=== PATIENT | male | born 1945 | race Caucasian/White ===

== ENCOUNTER 2017-04-25 11:43 | Observation (INO) ==
[2017-04-25 12:23] LABS: Basophils % 0.3 %; Eosinophils # 0.1 K/mcL (0.0-0.6); Hematocrit 32.5 % (37.5-50.1); Hemoglobin 10.9 g/dL (12.9-16.9); Immature Granulocytes % 0.6 % (0-4); Lymphocytes # 1.3 K/mcL (0.6-4.6); Lymphocytes % 14.3 %; Mean Corpuscular HGB Conc 33.5 g/dL (31.6-35.5); Mean Corpuscular Hemoglobin 28.6 pg (28.0-33.3); Mean Corpuscular Volume 85.3 fL (83.0-100.0); Mean Platelet Volume 9.9 fL (9.4-12.4); Monocytes # 0.5 K/mcL (0.0-1.3); Monocytes % 5.6 %; Neutrophils # 6.8 K/mcL (1.6-8.9); Platelet Count 210 K/mcL (140-400); Red Blood Count 3.81 M/mcL (4.19-5.50); Red Cell Distribution Width 12.7 % (11.5-14.5); Segmented Neutrophils % 78.2 %
--- NOTE | 2017-04-25 12:35 | Emergency Department Note ---
Disposition Clinical Impression: Bipolar disorder Qualifiers: Active/Remission status: currently active Current bipolar episode type: mixed Current episode severity: moderate Qualified Code(s): F31.62 - Bipolar disorder , current episode mixed, moderate Disposition: Still a Patient Condition: Fair Referrals: Lex Millan DO [Non-Partnered Physician] - Forms: ED Satisfaction Letter Time of Disposition: 22:31 Psych HPI - General Chief Complaint: ED Psychiatric Symptoms Stated Complaint: anxiety Time Seen by Provider: 04/25/17 11:47 Nursing Notes Reviewed: Yes Vital Signs Reviewed: Yes - History of Present Illness HPI Narrative: Mr. Hoffman, 71-year-old male, presents from home via EMS. He called the squad stating the hospital because "something is wrong with me". Patient's sister, who is his POA, call the patient's primary care physician, Dr. Lex Millan, who called ahead to the emergency department. Patient has a history of nervous breakdowns which involves violence and prolonged hospital stays before returning home. Over the past several weeks, he has had behavioral changes with visual hallucinations, vocabulary change described as large appropriately, and increased irritability. Each of these are atypical per patient's sister and primary care physician. PMH: End-stage renal disease not yet on dialysis; fistula placed in forearm with dialysis pending. - Related Data Home Medications Medication Instructions Recorded Confirmed Aspirin 81 mg PO QAM 02/19/15 04/25/17 Atenolol [Tenormin] 50 mg PO QID 02/19/15 04/25/17 Haloperidol [Haldol] 5 mg PO HS 02/19/15 04/25/17 Losartan/Hydrochlorothiazide 1 each PO DAILY 02/19/15 04/25/17 [Hyzaar 100-25 Tablet] Simvastatin [Zocor] 40 mg PO HS 02/19/15 04/25/17 Trihexyphenidyl [Artane] 5 mg PO HS 02/19/15 04/25/17 Amlodipine [Norvasc] 10 mg PO DAILY 02/22/15 04/25/17 Doxazosin Mesylate [Cardura Xl] 8 mg PO DAILY 04/25/17 04/25/17 Insulin Glargine,Hum.rec.anlog 35 unit SQ HS 04/25/17 04/25/17 [Lantus Solostar] Potassium Chloride [Klor-Con 10] 10 meq PO QID 04/25/17 04/25/17 SitaGLIPtin [Januvia] 25 mg PO DAILY 04/25/17 04/25/17 Previous Rx's Medication Instructions Recorded cloNIDine HCl [CloNIDine HCl] 0.2 mg PO TID #180 tablet 02/21/15 BuPROPion [Wellbutrin] 100 mg PO DAILY 30 Days tablet 02/23/15 Furosemide [Lasix] 40 mg PO DAILY #2 tab 09/29/16 Allergies Allergy/AdvReac Type Severity Reaction Status Date / Time Penicillins [PCN] Allergy Anaphylaxis Verified 04/25/17 18:58 Thiopental [From Pentothal] Allergy Anaphylaxis Verified 04/25/17 18:58 furosemide AdvReac See Verified 04/25/17 18:58 Comments lisinopril AdvReac Cough Verified 04/25/17 18:58 Metolazone AdvReac See Verified 04/25/17 18:58 Comments Past Medical History - Past Medical History Medical history: Reports: arthritis, asthma, CHF, diabetes, hyperlipidemia, hypertension, renal disease, other Surgical history: Reports: no surgical history, other Psychiatric history: Reports: schizophrenia, previous psychiatric hospitalization - Social History Smoking Status: Former smoker Smokeless Tobacco Status: No Alcohol use: Reports: none Drug use: Reports: none Physical Exam Vital Signs Reviewed General: Patient is alert, oriented, and in no acute distress. HEENT: No facial asymmetry. Head is normocephalic and atraumatic. PERRLA. Oral mucosa moist. Trachea midline. Cardiovascular: Heart regular rate and rhythm without clicks, rubs, gallops, or murmurs. No JVD. PMI nondisplaced. Respiratory: Symmetric chest rise with good respiratory effort. Bilateral breath sounds are clear without wheezing, crackles, or rhonchi. Abdomen: Bowel sounds present normoactive x-4 quadrants. Abdomen is soft, nondistended, and nontender. Musculoskeletal: Spontaneously moving all extremities. Neuro: Dystonia with mild akithesia. GCS 15. Psych: Patient's affect is appropriate for situation. - General General appearance: alert, in no apparent distress Course Course Narrative: Patient's sister called; He has not taking his haloperidol for last several days. Will provide home dose in the emergency department. Patient is mild hyperkalemia that is not symptomatic on EKG. We will by mouth replaced. Vital Signs Temperature 98.3 F 04/25/17 11:43 Pulse Rate 72 04/25/17 11:43 Respiratory Rate 20 04/25/17 11:43 Blood Pressure 180/74 04/25/17 11:43 O2 Sat by Pulse Oximetry 100 04/25/17 11:43 Temperature 98.3 F 04/25/17 11:43 Pulse Rate 72 04/25/17 11:43 Respiratory Rate 20 04/25/17 11:43 Blood Pressure 180/74 04/25/17 11:43 O2 Sat by Pulse Oximetry 100 04/25/17 11:43 Oxygen Delivery Oxygen Delivery Room Air Psych - Lab Data Result diagrams: 04/25/17 12:17 04/25/17 12:17 Lab Results 04/25/17 04/25/17 04/25/17 Range/Units 12:17 12:17 14:50 WBC 8.7 (4.3-11.1) K/mcL RBC 3.81 L (4.19-5.50) M/mcL Hgb 10.9 L (12.9-16.9) g/dL Hct 32.5 L (37.5-50.1) % MCV 85.3 (83.0-100.0) fL MCH 28.6 (28.0-33.3) pg MCHC 33.5 (31.6-35.5) g/dL RDW 12.7 (11.5-14.5) % Plt Count 210 (140-400) K/mcL MPV 9.9 (9.4-12.4) fL Immature Gran % 0.6 (0-4) % Seg Neutrophils % 78.2 % Lymphocytes % 14.3 % Monocytes % 5.6 % Eosinophils % 1.0 % Basophils % 0.3 % Neutrophils # 6.8 (1.6-8.9) K/mcL Lymphocytes # 1.3 (0.6-4.6) K/mcL Monocytes # 0.5 (0.0-1.3) K/mcL Eosinophils # 0.1 (0.0-0.6) K/mcL Basophils # 0.0 (0.0-0.2) K/mcL Sodium 136 (136-145) mEq/L Potassium 3.2 L (3.5-4.5) mEq/L Chloride 98 (98-109) mEq/L Carbon Dioxide 27 (19-29) mEq/L BUN 34 H (8-26) mg/dL Creatinine 2.94 H (0.72-1.25) mg/dL Est GFR ( Amer) 26 L (> 60) Est GFR (Non-Af Amer) 21 L (> 60) BUN/Creatinine Ratio 12 (6-26) Glucose 232 H (70-99) mg/dL Calculated Osmolality 297 (280-300) Calcium 8.9 (8.6-10.8) mg/dL TSH 1.628 (0.350-4.840) mcIU/mL Urine Color Yellow (Yellow) Urine Clarity Clear (Clear) Urine pH 7.0 (5.0-8.0) pH Units Ur Specific [place] 1.013 (1.010-1.025) Urine Protein 30 H (Neg-Trace) mg/dL Urine Glucose (UA) 100 H (Normal) mg/dL Urine Ketones Negative (Negative) mg/dL Urine Blood Negative (Negative) Urine Nitrite Negative (Negative) Urine Bilirubin Negative (Negative) Urine Urobilinogen Normal (Normal) mg/dL Ur Leukocyte Esterase Negative (Negative) Urine Microscopic RBC 0-3 (0-3) per hpf Urine Microscopic WBC 0-3 (0-3) per hpf Ur Squamous Epith Cells None Seen (None-Few) per lpf Urine Bacteria None Seen (None-Few) per hpf Hyaline Casts None Seen (None-Few) per lpf Salicylates < 5.0 L (15-30) mg/dL Urine Opiates Screen (Ivvybm=412) ng/mL Acetaminophen < 1.0 L (10-30) mcg/mL Ur Barbiturates Screen (Jrcusd=426) ng/mL Ur Phencyclidine Scrn (Cutoff=25) ng/mL Ur Amphetamines Screen (Qygslt=4553) ng/mL U Benzodiazepines Scrn (Mpnsxu=369) ng/mL Urine Cocaine Screen (Cutoff= 300) ng/mL U Marijuana (THC) Screen (Cutoff = 50) ng/mL Ethyl Alcohol < 10 (0-10) mg/dL 04/25/17 Range/Units 14:50 WBC (4.3-11.1) K/mcL RBC (4.19-5.50) M/mcL Hgb (12.9-16.9) g/dL Hct (37.5-50.1) % MCV (83.0-100.0) fL MCH (28.0-33.3) pg MCHC (31.6-35.5) g/dL RDW (11.5-14.5) % Plt Count (140-400) K/mcL MPV (9.4-12.4) fL Immature Gran % (0-4) % Seg Neutrophils % % Lymphocytes % % Monocytes % % Eosinophils % % Basophils % % Neutrophils # (1.6-8.9) K/mcL Lymphocytes # (0.6-4.6) K/mcL Monocytes # (0.0-1.3) K/mcL Eosinophils # (0.0-0.6) K/mcL Basophils # (0.0-0.2) K/mcL Sodium (136-145) mEq/L Potassium (3.5-4.5) mEq/L Chloride (98-109) mEq/L Carbon Dioxide (19-29) mEq/L BUN (8-26) mg/dL Creatinine (0.72-1.25) mg/dL Est GFR ( Amer) (> 60) Est GFR (Non-Af Amer) (> 60) BUN/Creatinine Ratio (6-26) Glucose (70-99) mg/dL Calculated Osmolality (280-300) Calcium (8.6-10.8) mg/dL TSH (0.350-4.840) mcIU/mL Urine Color (Yellow) Urine Clarity (Clear) Urine pH (5.0-8.0) pH Units Ur Specific [place] (1.010-1.025) Urine Protein (Neg-Trace) mg/dL Urine Glucose (UA) (Normal) mg/dL Urine Ketones (Negative) mg/dL Urine Blood (Negative) Urine Nitrite (Negative) Urine Bilirubin (Negative) Urine Urobilinogen (Normal) mg/dL Ur Leukocyte Esterase (Negative) Urine Microscopic RBC (0-3) per hpf Urine Microscopic WBC (0-3) per hpf Ur Squamous Epith Cells (None-Few) per lpf Urine Bacteria (None-Few) per hpf Hyaline Casts (None-Few) per lpf Salicylates (15-30) mg/dL Urine Opiates Screen Negative (Nxwocz=362) ng/mL Acetaminophen (10-30) mcg/mL Ur Barbiturates Screen Negative (Dtdhdo=805) ng/mL Ur Phencyclidine Scrn Negative (Cutoff=25) ng/mL Ur Amphetamines Screen Negative (Mzobdo=5023) ng/mL U Benzodiazepines Scrn Negative (Gtxmxt=742) ng/mL Urine Cocaine Screen Negative (Cutoff= 300) ng/mL U Marijuana (THC) Screen Negative (Cutoff = 50) ng/mL Ethyl Alcohol (0-10) mg/dL - EKG Data EKG attestation: Yes I reviewed and interpreted this EKG. EKG results narrative: EKG dated 04/25/17 at 12:28 interpreted as sinus rhythm with rate of 64. First- degree AV block with NE 224. QRS 116, QT/QTC 417/427. IVCD. Borderline left axis. T-wave inversion in leads 3 and V1 present are compared to EKG. Otherwise nonspecific ST-T changes. Compared to previous EKG dated 09/28/2016 showing no acute ischemic changes or comparison. Psychiatric Medical Clearance - Medical Clearance Checklist Does the patient have a NEW psychiatric condition?: No Any abnormalities indicating possible medical illness?: No Any history of medical issues?: No Medical History: Syncope, near (Acute) Weakness (Acute) Chronic renal failure (Chronic) Acute renal insufficiency (Acute) DM type 2 (diabetes mellitus, type 2) (Chronic) Hyperlipidemia (Chronic) Anemia (Chronic) Anxiety (Acute) Schizophrenia, disorganized, chronic (Chronic) Depression (Acute) Bipolar disorder (Acute) Chronic renal disease (Inactive) Hypertension (Inactive) Hypoglycemia (Inactive) Lower extremity edema (Inactive) No Social History Section defined Any abnormal vital signs prior to transfer?: No Current Vitals: Last Vital Signs Temp 98.3 F 04/25/17 11:43 Pulse 72 04/25/17 11:43 Resp 20 04/25/17 11:43 BP 180/74 04/25/17 11:43 Pulse Ox 100 04/25/17 11:43 Is the patient intoxicated or cognitively impaired?: Yes (Hx MR. No intoxication.) Psychiatric Lab Panel: Drug Levels and Toxicity 04/25/17 04/25/17 12:17 14:50 Urine Opiates Screen Negative Acetaminophen < 1.0 L Ur Barbiturates Screen Negative Ur Phencyclidine Scrn Negative Ur Amphetamines Screen Negative U Benzodiazepines Scrn Negative Urine Cocaine Screen Negative U Marijuana (THC) Screen Negative Ethyl Alcohol < 10 Any abnormalities on the physical exam?: No Any abnormal labs?: No Abnormal Labs: Abnormal lab results RBC 3.81 M/mcL (4.19-5.50) L 04/25/17 12:17 Hgb 10.9 g/dL (12.9-16.9) L 04/25/17 12:17 Hct 32.5 % (37.5-50.1) L 04/25/17 12:17 Potassium 3.2 mEq/L (3.5-4.5) L 04/25/17 12:17 BUN 34 mg/dL (8-26) H 04/25/17 12:17 Creatinine 2.94 mg/dL (0.72-1.25) H 04/25/17 12:17 Est GFR ( Amer) 26 (> 60) L 04/25/17 12:17 Est GFR (Non-Af Amer) 21 (> 60) L 04/25/17 12:17 Glucose 232 mg/dL (70-99) H 04/25/17 12:17 Urine Protein 30 mg/dL (Neg-Trace) H 04/25/17 14:50 Urine Glucose (UA) 100 mg/dL (Normal) H 04/25/17 14:50 Salicylates < 5.0 mg/dL (15-30) L 04/25/17 12:17 Acetaminophen < 1.0 mcg/mL (10-30) L 04/25/17 12:17 Does the patient require durable medical equiptment?: No Is the patient ambulatory?: Yes Is the patient a fall risk?: No Has the patient been medically cleared?: No Any acute medical condition require Tx prior to transfer?: No Attestation Statement - Attestation Attestation: I examined this patient and my medical decision-making was reviewed with the Resident Physician. I agree with the documented findings, disposition and treatment plan as described except to the extent set forth below. 71-year-old male with history of schizophrenia presents to the ED because of worsening agitation and delusions. He has a history of decompensated schizophrenia. He has not been taking his medications for the past several days. He was sent to the emergency department by his sister by the recommendation of the primary care physician due to increasing agitation, delusions and hallucinations. He should denies any current suicidal ideations. He states he sometimes wants to hurt other people but would not be more specific. He reports maintaining good appetite and diet. No vomiting. No fevers. No recent trauma. Pleasant elderly male in no apparent distress. He is cooperative. Nasal membranes are dry. Neck is supple. Chest clear to auscultation bilaterally. Abdomen soft nondistended nontender. Extremities warm and dry. Asymmetry of his legs with left been lower than the right. Metabolic workup is unremarkable except for hypokalemia. He is given supplemental oral potassium oral fluids. He was cooperative and interactive throughout his time in the ED and will be admitted for reinstitution of his medications and further evaluation.
[2017-04-25 12:38] LABS: Acetaminophen < 1.0 mcg/mL (10-30); BUN/Creatinine Ratio 12 (6-26); Blood Urea Nitrogen 34 mg/dL (8-26); Calcium 8.9 mg/dL (8.6-10.8); Carbon Dioxide 27 mEq/L (19-29); Chloride 98 mEq/L (98-109); Ethanol < 10 mg/dL (0-10); Glucose 232 mg/dL (70-99); Osmolality,Calculated 297 (280-300); Potassium 3.2 mEq/L (3.5-4.5); Salicylate < 5.0 mg/dL (15-30); Sodium 136 mEq/L (136-145); eGFR For African Americans 26 (> 60); eGFR For Non-African Americans 21 (> 60)
[2017-04-25 12:58] LABS: Thyroid Stimulating Hormone 1.628 mcIU/mL (0.350-4.840)
[2017-04-25] MEDS ORDERED: Haloperidol Oral Conc 10 MG/5 ML UDC PO ONE (13:15)
[2017-04-25 14:55] LABS: Bilirubin,Urine Negative (Negative); Blood,Urine Negative (Negative); Clarity,Urine Clear (Clear); Color,Urine Yellow (Yellow); Glucose,Urine (UA) 100 mg/dL (Normal); Ketones,Urine Negative (Negative); Leukocyte Esterase,Urine Negative (Negative); Nitrite,Urine Negative (Negative); Protein,Urine 30 mg/dL (Neg-Trace); Specific Gravity,Urine 1.013 (1.010-1.025); Urobilinogen,Urine Normal (Normal)
[2017-04-25 14:57] LABS: Bacteria,Urine None Seen per hpf (None-Few); Hyaline Casts,Urine None Seen per lpf (None-Few); RBC,Urine 0-3 per hpf (0-3); Squamous Epithelial Cell,Urine None Seen per lpf (None-Few); WBC,Urine 0-3 per hpf (0-3)
[2017-04-25 15:05] LABS: Amphetamine Screen,Urine Negative ng/mL (Cutoff=1000); Barbiturate Screen,Urine Negative ng/mL (Cutoff=200); Benzodiazepines Screen,Urine Negative ng/mL (Cutoff=200); Cannabinoid Screen,Urine Negative ng/mL (Cutoff = 50); Cocaine Screen,Urine Negative ng/mL (Cutoff= 300); Opiate Screen,Urine Negative ng/mL (Cutoff=300); Phencyclidine Screen,Urine Negative ng/mL (Cutoff=25)
--- NOTE | 2017-04-26 06:08 | Electrocardiograph Report ---
[facility] Date: 2017-04-25 Pat Name: Heber Gomez Department: 103 Room: Gender: M Mid Wife: : 1945 Requested By: Jose Sena Order Number: [id number] Reading MD: Tobias Mari DO Measurements Intervals [place] Rate: 64 P: 60 SD: 224 QRS: 1 QRSD: 116 T: -16 QT: 417 QTc: 427 Interpretive Statements SINUS RHYTHM WITH FIRST DEGREE AV BLOCK MODERATE INTRAVENTRICULAR CONDUCTION DELAY [110+ ms QRS DURATION] NONSPECIFIC T-WAVE ABNORMALITY Electronically Signed On 04-26-2017 6:06:26 EST by Tobias Mari DO
--- NOTE | 2017-04-26 07:37 | Emergency Department Note ---
Disposition Clinical Impression: Bipolar disorder Qualifiers: Active/Remission status: currently active Current bipolar episode type: mixed Current episode severity: moderate Qualified Code(s): F31.62 - Bipolar disorder , current episode mixed, moderate Chronic renal failure Qualifiers: Chronic kidney disease stage: stage 3 (moderate) Qualified Code(s): N18.3 - Chronic kidney disease, stage 3 (moderate) Disposition: Admitted As Inpatient Condition: Fair Referrals: Lex Millan DO [Non-Partnered Physician] - Forms: ED Satisfaction Letter General Adult HPI - General Chief complaint: ED Psychiatric Symptoms Stated complaint: anxiety Time Seen by Provider: 04/25/17 11:47 Nursing Notes Reviewed: Yes Vital Signs Reviewed: Yes - History of Present Illness Pain Scale: 0 - Related Data Home Medications Medication Instructions Recorded Confirmed Aspirin 81 mg PO QAM 02/19/15 04/25/17 Atenolol [Tenormin] 50 mg PO QID 02/19/15 04/25/17 Haloperidol [Haldol] 5 mg PO HS 02/19/15 04/25/17 Losartan/Hydrochlorothiazide 1 each PO DAILY 02/19/15 04/25/17 [Hyzaar 100-25 Tablet] Simvastatin [Zocor] 40 mg PO HS 02/19/15 04/25/17 Trihexyphenidyl [Artane] 5 mg PO HS 02/19/15 04/25/17 Amlodipine [Norvasc] 10 mg PO DAILY 02/22/15 04/25/17 Doxazosin Mesylate [Cardura Xl] 8 mg PO DAILY 04/25/17 04/25/17 Insulin Glargine,Hum.rec.anlog 35 unit SQ HS 04/25/17 04/25/17 [Lantus Solostar] Potassium Chloride [Klor-Con 10] 10 meq PO QID 04/25/17 04/25/17 SitaGLIPtin [Januvia] 25 mg PO DAILY 04/25/17 04/25/17 Previous Rx's Medication Instructions Recorded cloNIDine HCl [CloNIDine HCl] 0.2 mg PO TID #180 tablet 02/21/15 BuPROPion [Wellbutrin] 100 mg PO DAILY 30 Days tablet 02/23/15 Furosemide [Lasix] 40 mg PO DAILY #2 tab 09/29/16 Allergies Allergy/AdvReac Type Severity Reaction Status Date / Time Penicillins [PCN] Allergy Anaphylaxis Verified 04/25/17 18:58 Thiopental [From Pentothal] Allergy Anaphylaxis Verified 04/25/17 18:58 furosemide AdvReac See Verified 04/25/17 18:58 Comments lisinopril AdvReac Cough Verified 04/25/17 18:58 Metolazone AdvReac See Verified 04/25/17 18:58 Comments Past Medical History - Past Medical History Medical history: Reports: arthritis, asthma, CHF, diabetes, hyperlipidemia, hypertension, renal disease, other Surgical history: Reports: no surgical history, other Psychiatric history: Reports: schizophrenia, previous psychiatric hospitalization - Social History Smoking Status: Former smoker Smokeless Tobacco Status: No Alcohol use: Reports: none Drug use: Reports: none Physical Exam - General General appearance: alert, in no apparent distress Course Vital Signs Temperature 98.3 F 04/25/17 11:43 Pulse Rate 72 04/25/17 11:43 Respiratory Rate 20 04/25/17 11:43 Blood Pressure 180/74 04/25/17 11:43 O2 Sat by Pulse Oximetry 100 04/25/17 11:43 Temperature 98.3 F 04/25/17 11:43 Pulse Rate 97 04/26/17 04:38 Respiratory Rate 18 04/26/17 04:38 Blood Pressure 159/87 04/26/17 04:38 O2 Sat by Pulse Oximetry 97 04/26/17 04:38 Oxygen Delivery Oxygen Delivery Room Air Medical Decision Making - MDM Narrative Medical decision making narrative: I examined this patient and my medical decision-making was reviewed with the Resident Physician. I agree with the documented findings, disposition and treatment plan as described except to the extent set forth below. Patient was a sign out from the evening ER physician, Dr. Justin Patrick. He had been initially seen previously by Dr. Abran Faulkner. And was awaiting evaluation by [facility]. [facility] has evaluated him and they are trying to place him. Patient states he sleeping comfortably does not want anything needed this time and he is cooperative. On if he needs anything to let us know. Impression is anxiety 1100 hrs.: Spoke with [facility], they spoke to various [facility] and they will refuse to take him into his been admitted for 24 hours to rule out medical causes. I think this is appropriate. We will speak with hospitalist. Impression is #1 anxiety, altered mental status, and agitation, chronic renal insufficiency. Patient is up-to-date in agreement with this plan. 1110 hrs.: Spoke with hospitalist, she has graciously agreed to admit the patient to the hospital. Patient's up-to-date in agreement with plan. Consult to psychiatry for the floor. This documentation is done with the assistance of [employer] dictation software. Though efforts have been made to ensure accuracy, there may be inaccuracies in farm implement engine mechanic or spelling or other typographical errors. - Lab Data Result diagrams: 04/25/17 12:17 04/25/17 12:17 Lab Results 04/25/17 04/25/17 04/25/17 Range/Units 12:17 12: 14:50 WBC 8.7 (4.3-11.1) K/mcL RBC 3.81 L (4.19-5.50) M/mcL Hgb 10.9 L (12.9-16.9) g/dL Hct 32.5 L (37.5-50.1) % MCV 85.3 (83.0-100.0) fL MCH 28.6 (28.0-33.3) pg MCHC 33.5 (31.6-35.5) g/dL RDW 12.7 (11.5-14.5) % Plt Count 210 (140-400) K/mcL MPV 9.9 (9.4-12.4) fL Immature Gran % 0.6 (0-4) % Seg Neutrophils % 78.2 % Lymphocytes % 14.3 % Monocytes % 5.6 % Eosinophils % 1.0 % Basophils % 0.3 % Neutrophils # 6.8 (1.6-8.9) K/mcL Lymphocytes # 1.3 (0.6-4.6) K/mcL Monocytes # 0.5 (0.0-1.3) K/mcL Eosinophils # 0.1 (0.0-0.6) K/mcL Basophils # 0.0 (0.0-0.2) K/mcL Sodium 136 (136-145) mEq/L Potassium 3.2 L (3.5-4.5) mEq/L Chloride 98 (98-109) mEq/L Carbon Dioxide 27 (19-29) mEq/L BUN 34 H (8-26) mg/dL Creatinine 2.94 H (0.72-1.25) mg/dL Est GFR ( Amer) 26 L (> 60) Est GFR (Non-Af Amer) 21 L (> 60) BUN/Creatinine Ratio 12 (6-26) Glucose 232 H (70-99) mg/dL POC Glucose (58-89) Calculated Osmolality 297 (280-300) Calcium 8.9 (8.6-10.8) mg/dL TSH 1.628 (0.350-4.840) mcIU/mL Urine Color Yellow (Yellow) Urine Clarity Clear (Clear) Urine pH 7.0 (5.0-8.0) pH Units Ur Specific [place] 1.013 (1.010-1.025) Urine Protein 30 H (Neg-Trace) mg/dL Urine Glucose (UA) 100 H (Normal) mg/dL Urine Ketones Negative (Negative) mg/dL Urine Blood Negative (Negative) Urine Nitrite Negative (Negative) Urine Bilirubin Negative (Negative) Urine Urobilinogen Normal (Normal) mg/dL Ur Leukocyte Esterase Negative (Negative) Urine Microscopic RBC 0-3 (0-3) per hpf Urine Microscopic WBC 0-3 (0-3) per hpf Ur Squamous Epith Cells None Seen (None-Few) per lpf Urine Bacteria None Seen (None-Few) per hpf Hyaline Casts None Seen (None-Few) per lpf Salicylates < 5.0 L (15-30) mg/dL Urine Opiates Screen (Kkvuxv=234) ng/mL Acetaminophen < 1.0 L (10-30) mcg/mL Ur Barbiturates Screen (Kddwnw=007) ng/mL Ur Phencyclidine Scrn (Cutoff=25) ng/mL Ur Amphetamines Screen (Cjahii=8052) ng/mL U Benzodiazepines Scrn (Xdjkrz=498) ng/mL Urine Cocaine Screen (Cutoff= 300) ng/mL U Marijuana (THC) Screen (Cutoff = 50) ng/mL Ethyl Alcohol < 10 (0-10) mg/dL 04/25/17 04/26/17 Range/Units 14:50 04:28 WBC (4.3-11.1) K/mcL RBC (4.19-5.50) M/mcL Hgb (12.9-16.9) g/dL Hct (37.5-50.1) % MCV (83.0-100.0) fL MCH (28.0-33.3) pg MCHC (31.6-35.5) g/dL RDW (11.5-14.5) % Plt Count (140-400) K/mcL MPV (9.4-12.4) fL Immature Gran % (0-4) % Seg Neutrophils % % Lymphocytes % % Monocytes % % Eosinophils % % Basophils % % Neutrophils # (1.6-8.9) K/mcL Lymphocytes # (0.6-4.6) K/mcL Monocytes # (0.0-1.3) K/mcL Eosinophils # (0.0-0.6) K/mcL Basophils # (0.0-0.2) K/mcL Sodium (136-145) mEq/L Potassium (3.5-4.5) mEq/L Chloride (98-109) mEq/L Carbon Dioxide (19-29) mEq/L BUN (8-26) mg/dL Creatinine (0.72-1.25) mg/dL Est GFR ( Amer) (> 60) Est GFR (Non-Af Amer) (> 60) BUN/Creatinine Ratio (6-26) Glucose (70-99) mg/dL POC Glucose 174 H (58-89) Calculated Osmolality (280-300) Calcium (8.6-10.8) mg/dL TSH (0.350-4.840) mcIU/mL Urine Color (Yellow) Urine Clarity (Clear) Urine pH (5.0-8.0) pH Units Ur Specific [place] (1.010-1.025) Urine Protein (Neg-Trace) mg/dL Urine Glucose (UA) (Normal) mg/dL Urine Ketones (Negative) mg/dL Urine Blood (Negative) Urine Nitrite (Negative) Urine Bilirubin (Negative) Urine Urobilinogen (Normal) mg/dL Ur Leukocyte Esterase (Negative) Urine Microscopic RBC (0-3) per hpf Urine Microscopic WBC (0-3) per hpf Ur Squamous Epith Cells (None-Few) per lpf Urine Bacteria (None-Few) per hpf Hyaline Casts (None-Few) per lpf Salicylates (15-30) mg/dL Urine Opiates Screen Negative (Yqedfo=535) ng/mL Acetaminophen (10-30) mcg/mL Ur Barbiturates Screen Negative (Lhpiot=125) ng/mL Ur Phencyclidine Scrn Negative (Cutoff=25) ng/mL Ur Amphetamines Screen Negative (Knnthu=9943) ng/mL U Benzodiazepines Scrn Negative (Yzwdzx=023) ng/mL Urine Cocaine Screen Negative (Cutoff= 300) ng/mL U Marijuana (THC) Screen Negative (Cutoff = 50) ng/mL Ethyl Alcohol (0-10) mg/dL
[2017-04-26] MEDS ORDERED: Naloxone 0.4 MG/ML INJ IVP PRN (12:12)
--- NOTE | 2017-04-26 12:23 | Internal Med History&Physical ---
Date of Encounter: 04/26/17 Time of Encounter: 12:30 Assessment and Plan (1) Schizophrenia, acute Current visit: Yes Status: Acute Worsening from baseline, reportedly off home meds. - Psych consulted, appreciate assistance - Restart home meds - Plan for DC to [facility] psych facility once medically cleared (2) Chronic renal failure Current visit: Yes Status: Chronic Fistula in place, but patient not on dialysis. Creatinine at baseline. - Avoid nephrotoxins - Follow creatinine Qualifiers: Chronic kidney disease stage: stage 4 (severe) Qualified Code(s): N18.4 - Chronic kidney disease, stage 4 (severe) (3) DM type 2 (diabetes mellitus, type 2) Current visit: No Status: Chronic Continue home insulin regimen. - Diabetic diet Qualifiers: Diabetes mellitus complication status: without complication Diabetes mellitus half-way insulin use: with termite control representative use Qualified Code(s): E11.9 - Type 2 diabetes mellitus without complications; Z79.4 - parts counterman (current) use of insulin; Z79.4 - half-way (current) use of insulin; Z79.4 - half-way ( current) use of insulin; Z79.4 - half-way (current) use of insulin Internal Medicine - H&P: HPI Chief complaint: Confusion, psychosis Admitted From: Emergency Dept Plans for Post Hospital Care: Home History of present illness: Mr. Gomez is a 71 year old male with history of schizophrenia, CKD stage with fistula in place, DM2, and HTN who presented to the ED yesterday because of disorganized thoughts. His daughter, who helps with his care, noticed that he was acting abnormally and had him come to the ED for evaluation. He has a history of schizophrenia and has had times of worsening symptoms which required psych hospitalization and adjustment of meds. He has been reportedly more irritable that at baseline, with hallucinations. He has reportedly not taken his meds for several days, but tells me that he has been compliant with all medications. He denies SI during my evaluation in the ED. He denies chest pain, shortness of breath, fever or chills. In the ED he was given PO haldol (home dose) and has been resting comfortably. He was evaluated by psych nursing and attempt was made for placement in a [facility] psych facility, however he was not accepted because of elevated creatinine and desire for medical clearance before transfer. Past Med Surg Social Fam HX - Past Medical History Medical history: arthritis, asthma, CHF, diabetes, hyperlipidemia, hypertension , renal disease, other Psychiatric history: schizophrenia, previous psychiatric hospitalization - Past Surgical History Surgical History: no surgical history, other - Social History Smoking Status: Former smoker Smokeless Tobacco Status: No Alcohol use: none Drug use: none Internal Medicine - H&P: Meds Aspirin 81 mg PO QAM 02/19/15 [History] Atenolol [Tenormin] 50 mg PO QID 02/19/15 [History] Haloperidol [Haldol] 5 mg PO HS 02/19/15 [History] Losartan/Hydrochlorothiazide [Hyzaar 100-25 Tablet] 1 each PO DAILY 02/19/15 [ History] Simvastatin [Zocor] 40 mg PO HS 02/19/15 [History] Trihexyphenidyl [Artane] 5 mg PO HS 02/19/15 [History] cloNIDine HCl [CloNIDine HCl] 0.2 mg PO TID #180 tablet 02/21/15 [Rx] Amlodipine [Norvasc] 10 mg PO DAILY 02/22/15 [History] BuPROPion [Wellbutrin] 100 mg PO DAILY 30 Days tablet 02/23/15 [Rx] Furosemide [Lasix] 40 mg PO DAILY #2 tab 09/29/16 [Rx] Doxazosin Mesylate [Cardura Xl] 8 mg PO DAILY 04/25/17 [History] Insulin Glargine,Hum.rec.anlog [Lantus Solostar] 35 unit SQ HS 04/25/17 [History ] Potassium Chloride [Klor-Con 10] 10 meq PO QID 04/25/17 [History] SitaGLIPtin [Januvia] 25 mg PO DAILY 04/25/17 [History] 3 Allergy/AdvReac Type Severity Reaction Status Date / Time Penicillins [PCN] Allergy Anaphylaxis Verified 04/25/17 18:58 Thiopental [From Pentothal] Allergy Anaphylaxis Verified 04/25/17 18:58 furosemide AdvReac See Verified 04/25/17 18:58 Comments lisinopril AdvReac Cough Verified 04/25/17 18:58 Metolazone AdvReac See Verified 04/25/17 18:58 Comments All Systems PM: A 10-system review of systems was performed and is negative for pertinent findings except as documented above in the HPI. - Constitutional Vitals: Temp Pulse Resp BP Pulse Ox 98.3 F 97 20 158/94 97 04/25/17 11:43 04/26/17 04:38 04/26/17 11:57 04/26/17 11:57 04/26/17 04:38 General appearance: Present: cooperative, A&O X 3, no acute distress Exam: Difficult to understand because of speech impediment. - Head Head exam: Present: atraumatic - Eye Eye exam: Present: EOMI - ENT ENT exam: Present: mucous membranes moist - Neck Neck exam general surgery: Present: supple - Respiratory Respiratory exam: Present: CTAB - Cardiovascular Cardiovascular exam: Present: RRR. Absent: diastolic murmur, gallop, rubs, systolic murmur - GI/Abdominal GI/Abdominal exam: Present: normal bowel sounds, soft. Absent: distended, tenderness - Extremities Exam Extremities exam: Absent: pedal edema Additional comments: Right forearm with fistula with palpable thrill - Neurological Exam Neurological exam: Present: no focal deficits - Psychiatric Psychiatric exam: Present: anxious - Skin Skin exam: Absent: rash Internal Med - H&P Results - Labs CBC & Chem 7: 04/25/17 12:17 04/25/17 12:17
[2017-04-26] MEDS: cloNIDine HCl 0.1 MG TABLET PO SCH ×2 (14:39→22:17)
[2017-04-26] MEDS: Insulin DETEMIR 100 UNIT/ML X5UNITS SQ SCH (22:37)
[2017-04-27 05:56] LABS: Basophils % 0.5 %; Eosinophils # 0.2 K/mcL (0.0-0.6); Eosinophils % 2.4 %; Hematocrit 33.9 % (37.5-50.1); Hemoglobin 11.1 g/dL (12.9-16.9); Immature Granulocytes % 0.6 % (0-4); Lymphocytes # 2.2 K/mcL (0.6-4.6); Mean Corpuscular HGB Conc 32.7 g/dL (31.6-35.5); Mean Corpuscular Hemoglobin 28.5 pg (28.0-33.3); Mean Corpuscular Volume 86.9 fL (83.0-100.0); Mean Platelet Volume 10.1 fL (9.4-12.4); Monocytes # 0.7 K/mcL (0.0-1.3); Monocytes % 8.3 %; Neutrophils # 5.2 K/mcL (1.6-8.9); Platelet Count 220 K/mcL (140-400); Red Cell Distribution Width 12.9 % (11.5-14.5); Segmented Neutrophils % 62.2 %
[2017-04-27 05:58] LABS: Calcium 8.7 mg/dL (8.6-10.8); Potassium 3.3 mEq/L (3.5-4.5)
[2017-04-27] MEDS: *HR* SitaGLIPtin 25 MG TABLET PO SCH (08:59)
[2017-04-27] MEDS: amLODIPine 5 MG TABLET PO SCH (08:59)
[2017-04-27] MEDS: cloNIDine HCl 0.1 MG TABLET PO SCH ×3 (08:59→21:02)
[2017-04-27] MEDS: Aspirin 81 MG TAB.CHEW PO SCH (08:59)
[2017-04-27] MEDS: Losartan/HCTZ 50-12.5 TABLET PO SCH (08:59)
[2017-04-27] MEDS: DOXAZOSIN MESYLATE 8 MG PO SCH (09:09)
--- NOTE | 2017-04-27 14:20 | Consult Note ---
Date of Encounter: 04/27/17 Time of Encounter: 14:13 Assessment & Recommendation (1) Schizophrenia, disorganized, chronic Current visit: No Status: Chronic Assessment & Recommendation: 1. Referral to a geropsychiatric hospital after medical clearance to further evaluate and treat his chronic bipolar condition. There are no acute psychiatric symptoms at this time that require intervention. Small doses of benzodiazepine like lorazepam can be used when necessary for anxiety. 2. I recommend replacing Haldol with second generation antipsychotic to minimize extrapyramidal side effects. Patient is demonstrating dyskinetic tongue movements, most likely resulting from chronic treatment with Haldol. Thank you for consultation. History of Present Illness Patient: new to practice Requesting Physician: Thao Brown CNP Reason for consult: Anxiety, bipolar History of present illness: Mr. Gomez is a 71 year old male admitted to the medical unit for evaluation and treatment of chronic kidney disease with elevated creatinine. Patient was seen in the ER by psychiatric nurse reported to me that family believe his psychiatric medication for bipolar need to be adjusted. The reported that she has been anxious and irritable and refusing to take his medication at times. [facility], however he needed to be medically cleared prior to transfer to geriatric psychiatric hospital. Patient was seen in his room, he was alert and awake, his speech was mumbled and difficult to understand , he is edentulous, and noticed to have abnormal tongue movements probably due to long-term treatments with psychotropics. CC: Thao Brown CNP Past Med Surg Social Fam HX - Past Medical History Medical history: arthritis, asthma, CHF, diabetes, hyperlipidemia, hypertension , renal disease, other - Past Psychiatric History Psychiatric history: Reports: other (Unknown) - Past Surgical History Surgical History: no surgical history, other - Social History Smoking Status: Former smoker Smokeless Tobacco Status: No Alcohol use: none Drug use: none Medications & Allergies Aspirin 81 mg PO QAM 02/19/15 [History] Atenolol [Tenormin] 50 mg PO QID 02/19/15 [History] Haloperidol [Haldol] 5 mg PO HS 02/19/15 [History] Losartan/Hydrochlorothiazide [Hyzaar 100-25 Tablet] 1 each PO DAILY 02/19/15 [ History] Simvastatin [Zocor] 40 mg PO HS 02/19/15 [History] Trihexyphenidyl [Artane] 5 mg PO HS 02/19/15 [History] cloNIDine HCl [CloNIDine HCl] 0.2 mg PO TID #180 tablet 02/21/15 [Rx] Amlodipine [Norvasc] 10 mg PO DAILY 02/22/15 [History] BuPROPion [Wellbutrin] 100 mg PO DAILY 30 Days tablet 02/23/15 [Rx] Furosemide [Lasix] 40 mg PO DAILY #2 tab 09/29/16 [Rx] Doxazosin Mesylate [Cardura Xl] 8 mg PO DAILY 04/25/17 [History] Insulin Glargine,Hum.rec.anlog [Lantus Solostar] 35 unit SQ HS 04/25/17 [History ] Potassium Chloride [Klor-Con 10] 10 meq PO QID 04/25/17 [History] SitaGLIPtin [Januvia] 25 mg PO DAILY 04/25/17 [History] 3 Allergy/AdvReac Type Severity Reaction Status Date / Time Penicillins [PCN] Allergy Anaphylaxis Verified 04/25/17 18:58 Thiopental [From Pentothal] Allergy Anaphylaxis Verified 04/25/17 18:58 furosemide AdvReac See Verified 04/25/17 18:58 Comments lisinopril AdvReac Cough Verified 04/25/17 18:58 Metolazone AdvReac See Verified 04/25/17 18:58 Comments Mental Status Exam Patient orientation: Yes Person, Yes Time, Yes Place Level of alertness: Alert Patient appearance: Appropriate, Unkempt Behavior: calm, cooperative Psychomotor activity: Abnormal movements (Oral extrapyramidal movements) Eye contact: Maintains Eye Contact Mood description: Euthymic/stable Affect description: congruent with mood, full range Speech pattern: Normal rate, Normal rhythm, Normal tone Speech volume: Normal Thought process: Linear, Goal Oriented Thought content: No Suicidal ideation, No Homicidal ideation, No Overt delusions Perceptual disturbances: No Auditory hallucinations, No Visual hallucinations Attention span: Capable of Focused Attention Memory description: Grossly Intact Patient reliability: Reliable Historian Intelligence estimate: Average Judgment: Limited Insight: Partial Results - Vital Signs Vital signs: Temp Pulse Resp BP Pulse Ox 98.4 F 58 18 189/84 95 04/27/17 10:55 04/27/17 10:55 04/27/17 10:55 04/27/17 10:55 04/27/17 10:55 - Labs Labs: Laboratory Last Values WBC 8.4 K/mcL (4.3-11.1) 04/27/17 05:28 RBC 3.90 M/mcL (4.19-5.50) L 04/27/17 05:28 Hgb 11.1 g/dL (12.9-16.9) L 04/27/17 05:28 Hct 33.9 % (37.5-50.1) L 04/27/17 05:28 MCV 86.9 fL (83.0-100.0) 04/27/17 05:28 MCH 28.5 pg (28.0-33.3) 04/27/17 05:28 MCHC 32.7 g/dL (31.6-35.5) 04/27/17 05:28 RDW 12.9 % (11.5-14.5) 04/27/17 05:28 Plt Count 220 K/mcL (140-400) 04/27/17 05:28 MPV 10.1 fL (9.4-12.4) 04/27/17 05:28 Immature Gran % 0.6 % (0-4) 04/27/17 05:28 Seg Neutrophils % 62.2 % 04/27/17 05:28 Lymphocytes % 26.0 % 04/27/17 05:28 Monocytes % 8.3 % 04/27/17 05:28 Eosinophils % 2.4 % 04/27/17 05:28 Basophils % 0.5 % 04/27/17 05:28 Neutrophils # 5.2 K/mcL (1.6-8.9) 04/27/17 05:28 Lymphocytes # 2.2 K/mcL (0.6-4.6) 04/27/17 05:28 Monocytes # 0.7 K/mcL (0.0-1.3) 04/27/17 05:28 Eosinophils # 0.2 K/mcL (0.0-0.6) 04/27/17 05:28 Basophils # 0.0 K/mcL (0.0-0.2) 04/27/17 05:28 Sodium 140 mEq/L (136-145) 04/27/17 05:28 Potassium 3.3 mEq/L (3.5-4.5) L 04/27/17 05:28 Chloride 103 mEq/L (98-109) 04/27/17 05:28 Carbon Dioxide 26 mEq/L (19-29) 04/27/17 05:28 BUN 28 mg/dL (8-26) H 04/27/17 05:28 Creatinine 3.00 mg/dL (0.72-1.25) H 04/27/17 05:28 Est GFR ( Amer) 25 (> 60) L 04/27/17 05:28 Est GFR (Non-Af Amer) 21 (> 60) L 04/27/17 05:28 BUN/Creatinine Ratio 9 (6-26) 04/27/17 05:28 Glucose 126 mg/dL (70-99) H 04/27/17 05:28 POC Glucose 174 (58-89) H 04/26/17 04:28 Calculated Osmolality 297 (280-300) 04/27/17 05:28 Calcium 8.7 mg/dL (8.6-10.8) 04/27/17 05:28 TSH 1.628 mcIU/mL (0.350-4.840) 04/25/17 12:17 Urine Color Yellow (Yellow) 04/25/17 14:50 Urine Clarity Clear (Clear) 04/25/17 14:50 Urine pH 7.0 pH Units (5.0-8.0) 04/25/17 14:50 Ur Specific [place] 1.013 (1.010-1.025) 04/25/17 14:50 Urine Protein 30 mg/dL (Neg-Trace) H 04/25/17 14:50 Urine Glucose (UA) 100 mg/dL (Normal) H 04/25/17 14:50 Urine Ketones Negative mg/dL (Negative) 04/25/17 14:50 Urine Blood Negative (Negative) 04/25/17 14:50 Urine Nitrite Negative (Negative) 04/25/17 14:50 Urine Bilirubin Negative (Negative) 04/25/17 14:50 Urine Urobilinogen Normal mg/dL (Normal) 04/25/17 14:50 Ur Leukocyte Esterase Negative (Negative) 04/25/17 14:50 Urine Microscopic RBC 0-3 per hpf (0-3) 04/25/17 14:50 Urine Microscopic WBC 0-3 per hpf (0-3) 04/25/17 14:50 Ur Squamous Epith Cells None Seen per lpf (None-Few) 04/25/17 14:50 Urine Bacteria None Seen per hpf (None-Few) 04/25/17 14:50 Hyaline Casts None Seen per lpf (None-Few) 04/25/17 14:50 Salicylates < 5.0 mg/dL (15-30) L 04/25/17 12:17 Urine Opiates Screen Negative ng/mL (Rnuour=904) 04/25/17 14:50 Acetaminophen < 1.0 mcg/mL (10-30) L 04/25/17 12:17 Ur Barbiturates Screen Negative ng/mL (Yecfpx=533) 04/25/17 14:50 Ur Phencyclidine Scrn Negative ng/mL (Cutoff=25) 04/25/17 14:50 Ur Amphetamines Screen Negative ng/mL (Gytgmp=4328) 04/25/17 14:50 U Benzodiazepines Scrn Negative ng/mL (Rgbtzk=387) 04/25/17 14:50 Urine Cocaine Screen Negative ng/mL (Cutoff= 300) 04/25/17 14:50 U Marijuana (THC) Screen Negative ng/mL (Cutoff = 50) 04/25/17 14:50 Ethyl Alcohol < 10 mg/dL (0-10) 04/25/17 12:17 Consult Discharge Plan - Plan Referrals: Kimberly Bhagat DO [Primary Care Provider] -
--- NOTE | 2017-04-27 15:39 | Internal Med Progress Note ---
Date of Encounter: 04/27/17 Time of Encounter: 15:37 - Assessment and plan (1) Schizophrenia, acute Current Visit: Yes Status: Acute Assessment and plan: Patient presented with acute schizophrenic symptoms. Patient was evaluated by psychiatry. We will follow the recommendations from psychiatry. Patient needs placement in geriatric psychiatry unit. Once we get more information regarding patient's underlying medical problems we will try to place him accordingly with the help of perinatal social worker. (2) Bipolar disorder Current Visit: Yes Status: Acute Assessment and plan: Patient has a bipolar disorder. Psychiatry recommendations appreciated. Qualifiers: Active/Remission status: currently active Current bipolar episode type: mixed Current episode severity: moderate Qualified Code(s): F31.62 - Bipolar disorder, current episode mixed, moderate (3) Chronic renal failure Current Visit: Yes Status: Chronic Assessment and plan: Patient does have a AV fistula on his arm. We need more information regarding his renal status. This will help us to make a placement in an appropriate way. Patient's creatinine is stable. Qualifiers: Chronic kidney disease stage: stage 4 (severe) Qualified Code(s): N18.4 - Chronic kidney disease, stage 4 (severe) (4) DM type 2 (diabetes mellitus, type 2) Current Visit: No Status: Chronic Assessment and plan: We will follow the recommendations from subcutaneous insulin order set Qualifiers: Diabetes mellitus complication status: without complication Diabetes mellitus assisted insulin use: with assisted use Qualified Code(s): E11.9 - Type 2 diabetes mellitus without complications; Z79.4 - buttermaker (current) use of insulin; Z79.4 - buttermaker (current) use of insulin; Z79.4 - buttermaker ( current) use of insulin; Z79.4 - [facility] (current) use of insulin - Subjective Interval history: Patient seen and examined. Chart reviewed. patient is comfortably lying in the bed. Patient denies any symptoms of acute schizophrenia. - Constitutional Vitals: Temp Pulse Resp BP Pulse Ox 98.4 F 58 18 189/84 95 04/27/17 10:55 04/27/17 10:55 04/27/17 10:55 04/27/17 10:55 04/27/17 10:55 General appearance: Present: cooperative, A&O X 3, no acute distress - Head Head exam: Present: atraumatic, normocephalic - Eye Eye exam: Present: PERRL, conjuntiva pink, sclera anicteric Pupils: Present: PERRL - Neck Neck exam general surgery: Present: supple, trachea midline. Absent: lymphadenopathy - Respiratory Respiratory exam: Present: CTAB. Absent: accessory muscle use, rales, rhonchi, wheezes - Cardiovascular Cardiovascular exam: Present: RRR, +S1, +S2. Absent: diastolic murmur, gallop, rubs, systolic murmur - GI/Abdominal GI/Abdominal exam: Present: normal bowel sounds, soft, no peritoneal signs. Absent: distended, tenderness - Extremities Exam Extremities exam: Present: warm, radial pulses palpable and symmetrical. Absent : calf tenderness, cyanotic, pedal edema - Neurological Exam Neurological exam: Present: CN II-XII intact, oriented X3, no focal deficits. Absent: pronater drift, facial droop, speech deficit - Skin Skin exam: Present: dry, intact Internal Medicine: Result - Labs CBC & Chem 7: 04/27/17 05:28 04/27/17 05:28 Labs: Short CBC 04/27/17 Range/Units 05:28 WBC 8.4 (4.3-11.1) K/mcL Hgb 11.1 L (12.9-16.9) g/dL Hct 33.9 L (37.5-50.1) % Plt Count 220 (140-400) K/mcL Neutrophils # 5.2 (1.6-8.9) K/mcL BMP 04/27/17 05:28 Sodium 140 Potassium 3.3 L Chloride 103 Carbon Dioxide 26 BUN 28 H Creatinine 3.00 H Glucose 126 H Calcium 8.7 Consult Discharge Plan - Plan Referrals: Kimberly Bhagat DO [Primary Care Provider] -
[2017-04-27] MEDS: Insulin DETEMIR 100 UNIT/ML X5UNITS SQ SCH (21:07)
[2017-04-28] MEDS: Losartan/HCTZ 50-12.5 TABLET PO SCH (07:47)
[2017-04-28] MEDS: DOXAZOSIN MESYLATE 8 MG PO SCH (07:47)
[2017-04-28] MEDS: Aspirin 81 MG TAB.CHEW PO SCH (07:47)
[2017-04-28] MEDS: amLODIPine 5 MG TABLET PO SCH (07:47)
[2017-04-28] MEDS: *HR* SitaGLIPtin 25 MG TABLET PO SCH (07:47)
[2017-04-28] MEDS: cloNIDine HCl 0.1 MG TABLET PO SCH ×3 (07:47→20:13)
[2017-04-28 08:09] LABS: Albumin 3.1 g/dL (3.5-5.0); Albumin/Globulin Ratio 0.8 (1.1-2.2); Bilirubin,Total 0.5 mg/dL (0.2-1.2); Calcium 9.2 mg/dL (8.6-10.8); Globulin 3.8 g/dL (2.4-3.5); Potassium 2.9 mEq/L (3.5-4.5); Total Protein 6.9 g/dL (6.0-8.3)
[2017-04-28 08:47] LABS: Basophils # 0.1 K/mcL (0.0-0.2); Basophils % 0.5 %; Eosinophils # 0.2 K/mcL (0.0-0.6); Hematocrit 37.6 % (37.5-50.1); Hemoglobin 12.5 g/dL (12.9-16.9); Immature Granulocytes % 0.7 % (0-4); Lymphocytes # 2.2 K/mcL (0.6-4.6); Lymphocytes % 21.4 %; Mean Corpuscular HGB Conc 33.2 g/dL (31.6-35.5); Mean Corpuscular Hemoglobin 28.5 pg (28.0-33.3); Mean Corpuscular Volume 85.8 fL (83.0-100.0); Mean Platelet Volume 10.2 fL (9.4-12.4); Monocytes # 0.6 K/mcL (0.0-1.3); Monocytes % 6.3 %; Platelet Count 257 K/mcL (140-400); Red Blood Count 4.38 M/mcL (4.19-5.50); Red Cell Distribution Width 12.8 % (11.5-14.5); Segmented Neutrophils % 69.1 %
--- NOTE | 2017-04-28 15:53 | Internal Med Progress Note ---
Date of Encounter: 04/28/17 Time of Encounter: 15:51 - Assessment and plan (1) Schizophrenia, acute Current Visit: Yes Status: Acute Assessment and plan: Patient presented with acute schizophrenic symptoms. Patient was evaluated by psychiatry. We will follow the recommendations from psychiatry. Patient needs placement in geriatric psychiatry unit. Once we get more information regarding patient's underlying medical problems we will try to place him accordingly with the help of social media developer. 04/28/2017 Patient is awaiting for placement in geriatric psychiatric unit. Patient is known to have an acute schizophrenia. (2) Chronic renal failure Current Visit: Yes Status: Chronic Assessment and plan: Patient does have a AV fistula on his arm. We need more information regarding his renal status. This will help us to make a placement in an appropriate way. Patient's creatinine is stable. 04/28/2017 We need more information tomorrow regarding patient's AV fistula/tuna purse seiner/ plan for dialysis. Once we get that then patient can be transferred to geriatric psych facility. Qualifiers: Chronic kidney disease stage: stage 4 (severe) Qualified Code(s): N18.4 - Chronic kidney disease, stage 4 (severe) (3) Bipolar disorder Current Visit: Yes Status: Acute Assessment and plan: Patient has a bipolar disorder. Psychiatry recommendations appreciated. Qualifiers: Active/Remission status: currently active Current bipolar episode type: mixed Current episode severity: moderate Qualified Code(s): F31.62 - Bipolar disorder, current episode mixed, moderate (4) DM type 2 (diabetes mellitus, type 2) Current Visit: No Status: Chronic Assessment and plan: We will follow the recommendations from subcutaneous insulin order set Qualifiers: Diabetes mellitus complication status: without complication Diabetes mellitus penitentiary insulin use: with access manager use Qualified Code(s): E11.9 - Type 2 diabetes mellitus without complications; Z79.4 - [facility] (current) use of insulin; Z79.4 - search planner (current) use of insulin; Z79.4 - search planner ( current) use of insulin; Z79.4 - [facility] (current) use of insulin - Subjective Interval history: Patient seen and examined. Chart reviewed. patient is comfortably lying in the bed. Patient denies any symptoms of acute schizophrenia. 04/28/2017 Patient seen and examined. Chart reviewed. Patient is eating his breakfast. Denies any questions and does not have any complaints - Constitutional Vitals: Temp Pulse Resp BP Pulse Ox 98.1 F 60 15 164/79 94 04/28/17 15:40 04/28/17 15:40 04/28/17 15:40 04/28/17 15:40 04/28/17 15:40 General appearance: Present: cooperative, A&O X 3, no acute distress - Head Head exam: Present: atraumatic, normocephalic - Eye Eye exam: Present: PERRL, conjuntiva pink, sclera anicteric Pupils: Present: PERRL - Neck Neck exam general surgery: Present: supple, trachea midline. Absent: lymphadenopathy - Respiratory Respiratory exam: Present: CTAB. Absent: accessory muscle use, rales, rhonchi, wheezes - Cardiovascular Cardiovascular exam: Present: RRR, +S1, +S2. Absent: diastolic murmur, gallop, rubs, systolic murmur - GI/Abdominal GI/Abdominal exam: Present: normal bowel sounds, soft, no peritoneal signs. Absent: distended, tenderness - Extremities Exam Extremities exam: Present: warm, radial pulses palpable and symmetrical. Absent : calf tenderness, cyanotic, pedal edema - Neurological Exam Neurological exam: Present: CN II-XII intact, oriented X3, no focal deficits. Absent: pronater drift, facial droop, speech deficit - Skin Skin exam: Present: dry, intact Internal Medicine: Result - Labs CBC & Chem 7: 04/28/17 07:34 04/28/17 07:34 Labs: Short CBC 04/28/17 Range/Units 07:34 WBC 10.1 (4.3-11.1) K/mcL Hgb 12.5 L (12.9-16.9) g/dL Hct 37.6 (37.5-50.1) % Plt Count 257 (140-400) K/mcL Neutrophils # 7.0 (1.6-8.9) K/mcL BMP 04/28/17 07:34 Sodium 139 Potassium 2.9 L Chloride 104 Carbon Dioxide 27 BUN 30 H Creatinine 2.80 H Glucose 56 L Calcium 9.2 Liver Function 04/28/17 Range/Units 07:34 Total Bilirubin 0.5 (0.2-1.2) mg/dL AST 14 (5-34) Units/L ALT 15 (0-55) Units/L Alkaline Phosphatase 130 H (38-126) Units/L Albumin 3.1 L (3.5-5.0) g/dL Consult Discharge Plan - Plan Referrals: Kimberly Bhagat DO [Primary Care Provider] -
[2017-04-28] MEDS: Insulin DETEMIR 100 UNIT/ML X5UNITS SQ SCH (20:14)
[2017-04-29 05:30] LABS: Basophils # 0.1 K/mcL (0.0-0.2); Basophils % 0.5 %; Eosinophils # 0.2 K/mcL (0.0-0.6); Eosinophils % 2.1 %; Hematocrit 33.3 % (37.5-50.1); Hemoglobin 11.5 g/dL (12.9-16.9); Immature Granulocytes % 0.6 % (0-4); Lymphocytes % 21.5 %; Mean Corpuscular HGB Conc 34.5 g/dL (31.6-35.5); Mean Corpuscular Hemoglobin 29.4 pg (28.0-33.3); Mean Corpuscular Volume 85.2 fL (83.0-100.0); Mean Platelet Volume 10.3 fL (9.4-12.4); Monocytes # 0.6 K/mcL (0.0-1.3); Monocytes % 6.7 %; Neutrophils # 6.3 K/mcL (1.6-8.9); Platelet Count 199 K/mcL (140-400); Red Blood Count 3.91 M/mcL (4.19-5.50); Red Cell Distribution Width 12.8 % (11.5-14.5); Segmented Neutrophils % 68.6 %
[2017-04-29 05:43] LABS: Albumin 2.9 g/dL (3.5-5.0); Albumin/Globulin Ratio 0.9 (1.1-2.2); Bilirubin,Total 0.5 mg/dL (0.2-1.2); Calcium 9.1 mg/dL (8.6-10.8); Globulin 3.2 g/dL (2.4-3.5); Potassium 2.7 mEq/L (3.5-4.5); Total Protein 6.1 g/dL (6.0-8.3)
[2017-04-29] MEDS: Aspirin 81 MG TAB.CHEW PO SCH (08:24)
[2017-04-29] MEDS: *HR* SitaGLIPtin 25 MG TABLET PO SCH (08:24)
[2017-04-29] MEDS: Losartan/HCTZ 50-12.5 TABLET PO SCH (08:25)
[2017-04-29] MEDS: cloNIDine HCl 0.1 MG TABLET PO SCH ×3 (08:25→21:44)
[2017-04-29] MEDS: amLODIPine 5 MG TABLET PO SCH (08:25)
[2017-04-29] MEDS ORDERED: *HR* Heparin 5,000 UNIT/ML VIAL SQ SCH (08:30)
[2017-04-29] MEDS: DOXAZOSIN MESYLATE 8 MG PO SCH (09:00)
--- NOTE | 2017-04-29 09:43 | Discharge Summary ---
Date of Encounter: 04/29/17 Time of Encounter: 08:40 - Discharge Diagnosis (1) Schizophrenia, acute Priority: Primary Status: Acute Comments: Patient is a 71-year-old male with history of schizophrenia who presented to the emergency department yesterday due to disorganized thoughts, increased irritability, and hallucinations. He was accompanied by his daughter who helps with his care at home. Patient has long history of schizophrenia and has had times of worsening symptoms and has been placed in mental health facilities and required adjustment of his medications. He reported to the admitting physician that he had been compliant with all of his medications and he denies any SI or HI. He was seen by mental health services in the emergency department and was attempt made for him to be placed at a [facility], however due to his elevated creatinine and need for medical clearance, he was not accepted at that time. She is alert and oriented today, his speech is hard to understand, though I believe this is normally his baseline. He denies any thoughts of harming himself or others. He appears to be alert and oriented to name and place. He denies having hallucinations and is able to answer questions appropriately. He was evaluated by psychiatry while he was here. They recommended referral to [facility] after medical clearance for continued evaluation and treatment of his chronic bipolar disorder. Also recommend small doses of benzodiazepine for anxiety. Also recommend replacing Haldol was second- generation antipsychotic to minimize extraparametal side effects since he is having dyskinetic tongue movements, most likely due to chronic treatment with Haldol. I have discontinued Haldol 5mg po qhs, I have started Olanzapine 5mg po qhs and will monitor tonight. There is no need for drug adjustment for renal dosing. Patient is still awaiting placement in [facility]. (2) Chronic renal failure Priority: Secondary Status: Chronic Comments: Patient has AV fistula on right upper extremity. He states he has never received dialysis before. He is unsure of who created the fistula. He says he has seen nephrology in the past and is unsure of the name of the physician, only they come from [place] to an office in [place]. He reports that most recently his primary care physician has been managing his renal failure. Creatinine today is 2.81, GFR is 22. It appears to be improving from admission and baseline creatinine is greater than 2.[address] De Jesus spoke with nephrology regarding consultation for continuing treatment and dialysis. As mentioned in prior note that patient will need nephrology follow-up, as well as dialysis scheduled before being discharged to [facility]. Continue to avoid nephrotoxins, NSAIDs. Nephrology consultation is pending. Qualifiers: Chronic kidney disease stage: stage 4 (severe) Qualified Code(s): N18.4 - Chronic kidney disease, stage 4 (severe) (3) DM type 2 (diabetes mellitus, type 2) Priority: Secondary Status: Chronic Comments: A1c was 6.1 in July,., will recheck in the morning. Glucose appears to primarily hyperglycemic with one episode of hypoglycemia yesterday. Continue sliding scale insulin, Accu-Cheks before meals at bedtime, diabetic diet. Qualifiers: Diabetes mellitus complication status: without complication Diabetes mellitus intermediate card tender insulin use: with intermediate card tender use Qualified Code(s): E11.9 - Type 2 diabetes mellitus without complications; Z79.4 - prison (current) use of insulin; Z79.4 - prison (current) use of insulin; Z79.4 - superintendent container terminal ( current) use of insulin; Z79.4 - superintendent container terminal (current) use of insulin (4) Hyperlipidemia Priority: Secondary Status: Chronic Comments: Chronic. Continue home dose of Zocor. Qualifiers: Hyperlipidemia type: unspecified Qualified Code(s): E78.5 - Hyperlipidemia , unspecified (5) Bipolar disorder Priority: Secondary Status: Chronic Comments: Chronic. Will start olanzapine tonight, monitor for changes in the morning. Plan as above. Qualifiers: Active/Remission status: currently active Current bipolar episode type: mixed Current episode severity: moderate Qualified Code(s): F31.62 - Bipolar disorder, current episode mixed, moderate (6) DVT prophylaxis Priority: Secondary Status: Acute Comments: SCDs ordered. Up in chair twice a day. - Discharge Medications Prescriptions: OLANZapine [Zyprexa Zydis] 5 mg PO QPM #30 tab.rapdis Home Medications: Aspirin 81 mg PO QAM 02/19/15 [History] Atenolol [Tenormin] 50 mg PO QID 02/19/15 [History] Losartan/Hydrochlorothiazide [Hyzaar 100-25 Tablet] 1 each PO DAILY 02/19/15 [ History] Simvastatin [Zocor] 40 mg PO HS 02/19/15 [History] Trihexyphenidyl [Artane] 5 mg PO HS 02/19/15 [History] cloNIDine HCl [CloNIDine HCl] 0.2 mg PO TID #180 tablet 02/21/15 [Rx] Amlodipine [Norvasc] 10 mg PO DAILY 02/22/15 [History] BuPROPion [Wellbutrin] 100 mg PO DAILY 30 Days tablet 02/23/15 [Rx] Furosemide [Lasix] 40 mg PO DAILY #2 tab 09/29/16 [Rx] Doxazosin Mesylate [Cardura Xl] 8 mg PO DAILY 04/25/17 [History] Insulin Glargine,Hum.rec.anlog [Lantus Solostar] 35 unit SQ HS 04/25/17 [History ] Potassium Chloride [Klor-Con 10] 10 meq PO QID 04/25/17 [History] SitaGLIPtin [Januvia] 25 mg PO DAILY 04/25/17 [History] OLANZapine [Zyprexa Zydis] 5 mg PO QPM #30 tab.rapdis 04/29/17 [Rx] Allergies/Adverse Reactions: 3 Allergy/AdvReac Type Severity Reaction Status Date / Time Penicillins [PCN] Allergy Anaphylaxis Verified 04/25/17 18:58 Thiopental [From Pentothal] Allergy Anaphylaxis Verified 04/25/17 18:58 furosemide AdvReac See Verified 04/25/17 18:58 Comments lisinopril AdvReac Cough Verified 04/25/17 18:58 Metolazone AdvReac See Verified 04/25/17 18:58 Comments Date of admission: 04/26/17 11:43 Primary care physician: Xenia Avalos Consults: 04/26/17 12:41 Consult to Ring Conductor [CONS] Routine Reason for SW Consult: discharge planning. Patient states he has home health but doesn't know who through. 04/29/17 09:34 Consult to Physician [CONS] Routine Consulting Provider: Brandon Lobo Reason for Consult: Pt will need dialysis arranged prior to pt leaving for discharge care at [facility]. Has fistula to RuE. Pt states that he has seen nephrology in the past and does not know who, is unaware who created fistula, and states that he has never had dialysis before. Dr. De Jesus spoke with Dr. Lobo for consult. Time Notified: 09:37 Call Completed: Yes Discharging clinician: Tiffany Wooten Anticipated date of discharge: 04/29/17 - Patient Status Disposition: Transfer Psychiatric Hosp Condition: Good Functional capacity at discharge: independent ambulation Overall status at discharge: patient is back to baseline - Discharge Instructions Follow Up With: Kimberly Bhagat DO [Primary Care Provider] - Additional Instructions: Stop taking Haldol 5mg at night, it has been replaced with Olanzapine 5mg po at night. - Diet and Activity Activity: increase activity as tolerated Diet: advance to your usual diet Interval History: Please see assessment and plan for hospital course. Discharge summary created in error, pt not ready for discharge at this time. Hospital course: Mr. Gomez is a 71 year old male - Time Spent with Patient Total time spent providing and/or coordinating discharge services: Less than 30 minutes - Constitutional Vitals: Temp Pulse Resp BP Pulse Ox 98.2 F 51 17 167/79 96 04/29/17 07:20 04/29/17 07:20 04/29/17 07:20 04/29/17 07:20 04/29/17 07:20 General appearance: Present: cooperative, A&O X 2, pleasant, no acute distress, answers questions appropriately - Head Head exam: Present: atraumatic, normal inspection, normocephalic - Eye Eye exam: Present: normal appearance, conjuntiva pink, sclera anicteric - Neck Neck exam general surgery: Present: normal inspection, supple, trachea midline. Absent: lymphadenopathy, tenderness - Respiratory Respiratory exam: Present: decreased breath sounds, CTAB. Absent: accessory muscle use, rales, respiratory distress, rhonchi, wheezes - Cardiovascular Cardiovascular exam: Present: RRR, +S1, +S2. Absent: bradycardia, diastolic murmur, gallop, rubs, systolic murmur, tachycardia - GI/Abdominal GI/Abdominal exam: Present: distended, normal bowel sounds, soft, no peritoneal signs. Absent: hepatomegaly, tenderness - Extremities Exam Extremities exam: Present: normal capillary refill, tenderness, warm, radial pulses palpable and symmetrical. Absent: calf tenderness, cyanotic, pedal edema - Neurological Exam Neurological exam: Present: alert, oriented X3, no focal deficits. Absent: facial droop, speech deficit - Skin Skin exam: Present: dry, intact, normal color, warm. Absent: rash
--- NOTE | 2017-04-29 10:21 | Nephrology Consult Note ---
Date of Encounter: 04/29/17 Time of Encounter: 10:19 History of Present Illness - History of Present Illness This is a 71-year-old male who has a history of stage IV chronic kidney disease. Patient is followed as an outpatient. Patient was recently admitted with an exacerbation of his bipolar disease symptoms. He is undergoing some adjustments in his antipsychotic medications. From a renal perspective the patient has been very stable. Creatinine is currently 2.81 with a GFR of 22. Patient's creatinine typically runs around 3-3.1. He does have an AV fistula in place but has never required dialysis. He is very stable from a renal perspective. Currently he denies any nausea vomiting anorexia or lower extremity swelling. He denies any chest pain or shortness of breath. Patient is very stable from a renal perspective. His renal function has been stable for at least a urine after not 2 years or longer. He currently does not require any dialysis. She can be safely monitored as an outpatient from a renal perspective. Past Med Surg Social Fam HX - Past Medical History Medical history: arthritis, asthma, CHF, diabetes, hyperlipidemia, hypertension , renal disease, other Psychiatric history: other (Unknown) - Past Surgical History Surgical History: no surgical history, other - Social History Smoking Status: Former smoker Smokeless Tobacco Status: No Alcohol use: none Drug use: none Medications and Allergies Aspirin 81 mg PO QAM 02/19/15 [History] Atenolol [Tenormin] 50 mg PO QID 02/19/15 [History] Losartan/Hydrochlorothiazide [Hyzaar 100-25 Tablet] 1 each PO DAILY 02/19/15 [ History] Simvastatin [Zocor] 40 mg PO HS 02/19/15 [History] Trihexyphenidyl [Artane] 5 mg PO HS 02/19/15 [History] cloNIDine HCl [CloNIDine HCl] 0.2 mg PO TID #180 tablet 02/21/15 [Rx] Amlodipine [Norvasc] 10 mg PO DAILY 02/22/15 [History] BuPROPion [Wellbutrin] 100 mg PO DAILY 30 Days tablet 02/23/15 [Rx] Furosemide [Lasix] 40 mg PO DAILY #2 tab 09/29/16 [Rx] Doxazosin Mesylate [Cardura Xl] 8 mg PO DAILY 04/25/17 [History] Insulin Glargine,Hum.rec.anlog [Lantus Solostar] 35 unit SQ HS 04/25/17 [History ] Potassium Chloride [Klor-Con 10] 10 meq PO QID 04/25/17 [History] SitaGLIPtin [Januvia] 25 mg PO DAILY 04/25/17 [History] OLANZapine [Zyprexa Zydis] 5 mg PO QPM #30 tab.rapdis 04/29/17 [Rx] 3 Allergy/AdvReac Type Severity Reaction Status Date / Time Penicillins [PCN] Allergy Anaphylaxis Verified 04/25/17 18:58 Thiopental [From Pentothal] Allergy Anaphylaxis Verified 04/25/17 18:58 furosemide AdvReac See Verified 04/25/17 18:58 Comments lisinopril AdvReac Cough Verified 04/25/17 18:58 Metolazone AdvReac See Verified 04/25/17 18:58 Comments Review of Systems Constitutional: as per HPI Eyes: bilateral: blurred vision (patient denies), diplopia (patient denies) Nose, mouth and throat: no dizziness, no headache(s) Cardiovascular: no chest pain, no palpitations Respiratory: no cough, no dyspnea Gastrointestinal: no abdominal pain, no change in bowel habits Musculoskeletal: no muscle weakness, no numbness Integumentary: no hirsutism, no striae Neurological: as per HPI Psychiatric: depression, difficulty concentrating, mood swings Endocrine: as per HPI Hematologic/Lymphatic: no easy bruising, no lymphadenopathy Exam - Vital Signs Vital signs: Initial Vital Signs Temp Pulse Resp BP Pulse Ox 98.3 F 72 20 180/74 100 04/25/17 11:43 04/25/17 11:43 04/25/17 11:43 04/25/17 11:43 04/25/17 11:43 Vital Signs - Last 8 Hours Temp Pulse Resp BP Pulse Ox 04/29/17 07:20 98.2 F 51 17 167/79 96 04/29/17 03:42 98.7 F 49 14 161/80 97 Intake and Output 04/28/17 04/29/17 04/29/17 23:59 07:59 15:59 Output Total 450 / 450 Balance -450 / -450 Output: Urine 450 / 450 Other: # Voids 1 Weight 91.2 kg Blood Glucose* 242 79 Patient Weight 04/29/17 23:59 Weight 91.2 kg Results - Lab Results 04/29/17 04:49 04/29/17 04:49 Most recent lab results Calcium 9.1 mg/dL (8.6-10.8) 04/29/17 04:49 Consult Discharge Plan - Plan Referrals: Kimberly Bhagat DO [Primary Care Provider] - Prescriptions: OLANZapine [Zyprexa Zydis] 5 mg PO QPM #30 tab.rapdis
[2017-04-29] MEDS: OLANZapine 5 MG TAB.RAPDIS PO SCH (17:28)
[2017-04-29] MEDS: Insulin DETEMIR 100 UNIT/ML X5UNITS SQ SCH (21:50)
[2017-04-30 07:00] LABS: Basophils % 0.2 %; Eosinophils # 0.3 K/mcL (0.0-0.6); Eosinophils % 2.5 %; Hematocrit 31.4 % (37.5-50.1); Hemoglobin 10.8 g/dL (12.9-16.9); Immature Granulocytes % 0.5 % (0-4); Lymphocytes # 2.1 K/mcL (0.6-4.6); Lymphocytes % 19.7 %; Mean Corpuscular HGB Conc 34.4 g/dL (31.6-35.5); Mean Corpuscular Volume 84.2 fL (83.0-100.0); Mean Platelet Volume 10.5 fL (9.4-12.4); Monocytes # 0.7 K/mcL (0.0-1.3); Monocytes % 6.3 %; Neutrophils # 7.6 K/mcL (1.6-8.9); Platelet Count 217 K/mcL (140-400); Red Blood Count 3.73 M/mcL (4.19-5.50); Red Cell Distribution Width 12.9 % (11.5-14.5); Segmented Neutrophils % 70.8 %
[2017-04-30 07:11] LABS: Hemoglobin A1C 6.4 %
[2017-04-30 07:23] LABS: Calcium 8.8 mg/dL (8.6-10.8); Potassium 2.8 mEq/L (3.5-4.5)
[2017-04-30] MEDS: Losartan/HCTZ 50-12.5 TABLET PO SCH (08:48)
[2017-04-30] MEDS: cloNIDine HCl 0.1 MG TABLET PO SCH ×3 (08:48→20:35)
[2017-04-30] MEDS: Aspirin 81 MG TAB.CHEW PO SCH (08:48)
[2017-04-30] MEDS: *HR* SitaGLIPtin 25 MG TABLET PO SCH (08:49)
[2017-04-30] MEDS: amLODIPine 5 MG TABLET PO SCH (08:49)
[2017-04-30] MEDS: DOXAZOSIN MESYLATE 8 MG PO SCH (08:49)
[2017-04-30] MEDS: OLANZapine 5 MG TAB.RAPDIS PO SCH (18:32)
[2017-04-30] MEDS: Insulin DETEMIR 100 UNIT/ML X5UNITS SQ SCH (20:36)
--- NOTE | 2017-05-01 00:26 | Internal Med Progress Note ---
Date of Encounter: 04/30/17 Time of Encounter: 15:23 - Assessment and plan (1) Schizophrenia, acute Current Visit: Yes Status: Acute Assessment and plan: Patient is a 71-year-old male with history of schizophrenia who presented to the emergency department yesterday due to disorganized thoughts, increased irritability, and hallucinations. He was accompanied by his daughter who helps with his care at home. Patient has long history of schizophrenia and has had times of worsening symptoms and has been placed in mental health facilities and required adjustment of his medications. He reported to the admitting physician that he had been compliant with all of his medications and he denies any SI or HI. He was seen by mental health services in the emergency department and was attempt made for him to be placed at a [facility] facility, however due to his elevated creatinine and need for medical clearance, he was not accepted at that time. She is alert and oriented today, his speech is hard to understand, though I believe this is normally his baseline. He denies any thoughts of harming himself or others. He appears to be alert and oriented to name and place. He denies having hallucinations and is able to answer questions appropriately. He was evaluated by psychiatry while he was here. They recommended referral to [facility] after medical clearance for continued evaluation and treatment of his chronic bipolar disorder. Also recommend small doses of benzodiazepine for anxiety. Also recommend replacing Haldol was second- generation antipsychotic to minimize extraparametal side effects since he is having dyskinetic tongue movements, most likely due to chronic treatment with Haldol. I have discontinued Haldol 5mg po qhs, I have started Olanzapine 5mg po qhs and will monitor tonight. There is no need for drug adjustment for renal dosing. Patient is still awaiting placement in [facility]. Patient new to me. Review of chart and primary provider documentation suggest placement to a geriatric psych unit. Will discuss with SW/CM on this progress. (2) Bipolar disorder Current Visit: Yes Status: Chronic Qualifiers: Active/Remission status: currently active Current bipolar episode type: mixed Current episode severity: moderate Qualified Code(s): F31.62 - Bipolar disorder, current episode mixed, moderate (3) DM type 2 (diabetes mellitus, type 2) Current Visit: No Status: Chronic Assessment and plan: We will follow the recommendations from subcutaneous insulin order set Qualifiers: Diabetes mellitus complication status: without complication Diabetes mellitus snf insulin use: with vermin exterminator use Qualified Code(s): E11.9 - Type 2 diabetes mellitus without complications; Z79.4 - long-term (current) use of insulin; Z79.4 - exterminator helper termite (current) use of insulin; Z79.4 - exterminator helper termite ( current) use of insulin; Z79.4 - long-term (current) use of insulin (4) Anemia Current Visit: No Status: Chronic Qualifiers: Anemia type: unspecified type Qualified Code(s): D64.9 - Anemia, unspecified - Subjective Interval history: No acute events. Patient had no episodes of agitation. No combative behavior. - Constitutional Vitals: Temp Pulse Resp BP Pulse Ox 97.7 F 52 18 170/94 99 04/30/17 23:25 04/30/17 23:25 04/30/17 23:25 04/30/17 23:25 04/30/17 23:25 General appearance: Present: cooperative, A&O X 2, pleasant, no acute distress, answers questions appropriately Exam: - Head Head exam: Present: atraumatic, normal inspection, normocephalic - Eye Eye exam: Present: normal appearance, conjuntiva pink, sclera anicteric - Neck Neck exam general surgery: Present: normal inspection, supple, trachea midline. Absent: lymphadenopathy, tenderness - Respiratory Respiratory exam: Present: decreased breath sounds, CTAB. Absent: accessory muscle use, rales, respiratory distress, rhonchi, wheezes - Cardiovascular Cardiovascular exam: Present: RRR, +S1, +S2. Absent: bradycardia, diastolic murmur, gallop, rubs, systolic murmur, tachycardia - GI/Abdominal GI/Abdominal exam: Present: distended, normal bowel sounds, soft, no peritoneal signs. Absent: hepatomegaly, tenderness - Extremities Exam Extremities exam: Present: normal capillary refill, tenderness, warm, radial pulses palpable and symmetrical. Absent: calf tenderness, cyanotic, pedal edema - Neurological Exam Neurological exam: Present: alert, oriented X3, no focal deficits. Absent: facial droop, speech deficit - Skin Skin exam: Present: dry, intact, normal color, warm. Absent: rash Internal Medicine: Result - Labs CBC & Chem 7: 04/30/17 05:26 04/30/17 05:26 Labs: Short CBC 04/30/17 Range/Units 05:26 WBC 10.7 (4.3-11.1) K/mcL Hgb 10.8 L (12.9-16.9) g/dL Hct 31.4 L (37.5-50.1) % Plt Count 217 (140-400) K/mcL Neutrophils # 7.6 (1.6-8.9) K/mcL BMP 04/30/17 05:26 Sodium 139 Potassium 2.8 L Chloride 102 Carbon Dioxide 24 BUN 35 H Creatinine 2.64 H Glucose 92 Calcium 8.8 Consult Discharge Plan - Plan Additional Instructions: Stop taking Haldol 5mg at night, it has been replaced with Olanzapine 5mg po at night. Referrals: Kimberly Bhagat, DO [Primary Care Provider] - Prescriptions: OLANZapine [Zyprexa Zydis] 5 mg PO QPM #30 tab.rapdis
[2017-05-01 06:17] LABS: Basophils % 0.3 %; Eosinophils # 0.3 K/mcL (0.0-0.6); Eosinophils % 2.2 %; Hematocrit 32.7 % (37.5-50.1); Immature Granulocytes % 0.7 % (0-4); Lymphocytes # 1.5 K/mcL (0.6-4.6); Lymphocytes % 13.2 %; Mean Corpuscular HGB Conc 33.6 g/dL (31.6-35.5); Mean Corpuscular Hemoglobin 28.7 pg (28.0-33.3); Mean Corpuscular Volume 85.4 fL (83.0-100.0); Mean Platelet Volume 10.1 fL (9.4-12.4); Monocytes # 0.7 K/mcL (0.0-1.3); Platelet Count 248 K/mcL (140-400); Red Blood Count 3.83 M/mcL (4.19-5.50); Segmented Neutrophils % 77.6 %
[2017-05-01 06:36] LABS: Calcium 8.6 mg/dL (8.6-10.8); Potassium 2.9 mEq/L (3.5-4.5)
[2017-05-01] MEDS: Losartan/HCTZ 50-12.5 TABLET PO SCH (09:16)
[2017-05-01] MEDS: amLODIPine 5 MG TABLET PO SCH (09:16)
[2017-05-01] MEDS: Aspirin 81 MG TAB.CHEW PO SCH (09:16)
[2017-05-01] MEDS: *HR* SitaGLIPtin 25 MG TABLET PO SCH (09:16)
[2017-05-01] MEDS: cloNIDine HCl 0.1 MG TABLET PO SCH ×2 (09:16→14:16)
[2017-05-01] MEDS: DOXAZOSIN MESYLATE 8 MG PO SCH (09:18)
[2017-05-01] MEDS ORDERED: Potassium Chloride Elixir 20 MEQ/15 ML UDC PO ONE (09:56)
[2017-05-01 15:46] VITALS: BP 144/80
--- NOTE | 2017-05-01 17:16 | Discharge Summary ---
Date of Encounter: 05/01/17 Time of Encounter: 17:15 - Discharge Diagnosis (1) Schizophrenia, acute Priority: Primary Status: Acute (2) Bipolar disorder Priority: Secondary Status: Chronic Qualifiers: Active/Remission status: currently active Current bipolar episode type: mixed Current episode severity: moderate Qualified Code(s): F31.62 - Bipolar disorder, current episode mixed, moderate (3) DM type 2 (diabetes mellitus, type 2) Priority: Secondary Status: Chronic Qualifiers: Diabetes mellitus complication status: without complication Diabetes mellitus snf insulin use: with snf use Qualified Code(s): E11.9 - Type 2 diabetes mellitus without complications; Z79.4 - correction (current) use of insulin; Z79.4 - termite control technician (current) use of insulin; Z79.4 - termite control technician ( current) use of insulin; Z79.4 - correction (current) use of insulin (4) Anemia Priority: Secondary Status: Chronic Qualifiers: Anemia type: unspecified type Qualified Code(s): D64.9 - Anemia, unspecified - Discharge Medications Prescriptions: OLANZapine [Zyprexa Zydis] 5 mg PO QPM #30 tab.rapdis Home Medications: Aspirin 81 mg PO QAM 02/19/15 [History] Atenolol [Tenormin] 50 mg PO QID 02/19/15 [History] Losartan/Hydrochlorothiazide [Hyzaar 100-25 Tablet] 1 each PO DAILY 02/19/15 [ History] Simvastatin [Zocor] 40 mg PO HS 02/19/15 [History] Trihexyphenidyl [Artane] 5 mg PO HS 02/19/15 [History] cloNIDine HCl [CloNIDine HCl] 0.2 mg PO TID #180 tablet 02/21/15 [Rx] Amlodipine [Norvasc] 10 mg PO DAILY 02/22/15 [History] BuPROPion [Wellbutrin] 100 mg PO DAILY 30 Days tablet 02/23/15 [Rx] Furosemide [Lasix] 40 mg PO DAILY #2 tab 09/29/16 [Rx] Doxazosin Mesylate [Cardura Xl] 8 mg PO DAILY 04/25/17 [History] Insulin Glargine,Hum.rec.anlog [Lantus Solostar] 35 unit SQ HS 04/25/17 [History ] Potassium Chloride [Klor-Con 10] 10 meq PO QID 04/25/17 [History] SitaGLIPtin [Januvia] 25 mg PO DAILY 04/25/17 [History] OLANZapine [Zyprexa Zydis] 5 mg PO QPM #30 tab.rapdis 04/29/17 [Rx] Allergies/Adverse Reactions: 3 Allergy/AdvReac Type Severity Reaction Status Date / Time Penicillins [PCN] Allergy Anaphylaxis Verified 04/25/17 18:58 Thiopental [From Pentothal] Allergy Anaphylaxis Verified 04/25/17 18:58 furosemide AdvReac See Verified 04/25/17 18:58 Comments lisinopril AdvReac Cough Verified 04/25/17 18:58 Metolazone AdvReac See Verified 04/25/17 18:58 Comments Date of admission: 04/26/17 11:43 Primary care physician: Xenia Avalos Consults: 04/26/17 12:41 Consult to Medical Staff Credentialing Coordinator [CONS] Routine Reason for SW Consult: discharge planning. Patient states he has home health but doesn't know who through. 04/29/17 09:34 Consult to Physician [CONS] Routine Consulting Provider: Brandon Lobo Reason for Consult: Pt will need dialysis arranged prior to pt leaving for discharge care at [facility]. Has fistula to RuE. Pt states that he has seen nephrology in the past and does not know who, is unaware who created fistula, and states that he has never had dialysis before. Dr. De Jesus spoke with Dr. Lobo for consult. Time Notified: 09:37 Call Completed: Yes 04/29/17 14:27 Consult to Occupational Therapy [CONS] Routine Comment: Evaluate, develop and implement POC Reason for Consult: discharge needs Consult to Physical Therapy [CONS] Routine Comment: Evaluate, develop and implement POC Reason for Consult: discharge needs Discharging clinician: Juan Rodriguez - Patient Status Disposition: Transfer Psychiatric Hosp Condition: Good - Discharge Instructions Follow Up With: Kimberly Bhagat DO [Primary Care Provider] - Additional Instructions: Stop taking Haldol 5mg at night, it has been replaced with Olanzapine 5mg po at night. Hospital course: Mr. Gomez is a 71 year old male - Time Spent with Patient Total time spent providing and/or coordinating discharge services: - Constitutional Vitals: Temp Pulse Resp BP Pulse Ox 98.4 F 66 15 144/80 99 05/01/17 15:45 05/01/17 15:45 05/01/17 15:45 05/01/17 15:45 05/01/17 15:45 General appearance: Present: cooperative, A&O X 2, pleasant, no acute distress, answers questions appropriately
--- NOTE | 2017-05-01 17:20 | Discharge Summary ---
Date of Encounter: 05/01/17 Time of Encounter: 17:18 - Discharge Diagnosis (1) Schizophrenia, acute Priority: Primary Status: Acute (2) Bipolar disorder Priority: Secondary Status: Chronic Qualifiers: Active/Remission status: currently active Current bipolar episode type: mixed Current episode severity: moderate Qualified Code(s): F31.62 - Bipolar disorder, current episode mixed, moderate (3) DM type 2 (diabetes mellitus, type 2) Priority: Secondary Status: Chronic Qualifiers: Diabetes mellitus complication status: without complication Diabetes mellitus detention insulin use: with detention use Qualified Code(s): E11.9 - Type 2 diabetes mellitus without complications; Z79.4 - shelter (current) use of insulin; Z79.4 - shelter (current) use of insulin; Z79.4 - intermediate project manager ( current) use of insulin; Z79.4 - shelter (current) use of insulin (4) Anemia Priority: Secondary Status: Chronic Qualifiers: Anemia type: unspecified type Qualified Code(s): D64.9 - Anemia, unspecified - Discharge Medications Prescriptions: OLANZapine [Zyprexa Zydis] 5 mg PO QPM #30 tab.rapdis Home Medications: Aspirin 81 mg PO QAM 02/19/15 [History] Atenolol [Tenormin] 50 mg PO QID 02/19/15 [History] Losartan/Hydrochlorothiazide [Hyzaar 100-25 Tablet] 1 each PO DAILY 02/19/15 [ History] Simvastatin [Zocor] 40 mg PO HS 02/19/15 [History] Trihexyphenidyl [Artane] 5 mg PO HS 02/19/15 [History] cloNIDine HCl [CloNIDine HCl] 0.2 mg PO TID #180 tablet 02/21/15 [Rx] Amlodipine [Norvasc] 10 mg PO DAILY 02/22/15 [History] BuPROPion [Wellbutrin] 100 mg PO DAILY 30 Days tablet 02/23/15 [Rx] Furosemide [Lasix] 40 mg PO DAILY #2 tab 09/29/16 [Rx] Doxazosin Mesylate [Cardura Xl] 8 mg PO DAILY 04/25/17 [History] Insulin Glargine,Hum.rec.anlog [Lantus Solostar] 35 unit SQ HS 04/25/17 [History ] Potassium Chloride [Klor-Con 10] 10 meq PO QID 04/25/17 [History] SitaGLIPtin [Januvia] 25 mg PO DAILY 04/25/17 [History] OLANZapine [Zyprexa Zydis] 5 mg PO QPM #30 tab.rapdis 04/29/17 [Rx] Allergies/Adverse Reactions: 3 Allergy/AdvReac Type Severity Reaction Status Date / Time Penicillins [PCN] Allergy Anaphylaxis Verified 04/25/17 18:58 Thiopental [From Pentothal] Allergy Anaphylaxis Verified 04/25/17 18:58 furosemide AdvReac See Verified 04/25/17 18:58 Comments lisinopril AdvReac Cough Verified 04/25/17 18:58 Metolazone AdvReac See Verified 04/25/17 18:58 Comments Date of admission: 04/26/17 11:43 Primary care physician: Xenia Avalos Consults: 04/26/17 12:41 Consult to Speech Pathology Teacher [CONS] Routine Reason for SW Consult: discharge planning. Patient states he has home health but doesn't know who through. 04/29/17 09:34 Consult to Physician [CONS] Routine Consulting Provider: Brandon Lobo Reason for Consult: Pt will need dialysis arranged prior to pt leaving for discharge care at [facility]. Has fistula to RuE. Pt states that he has seen nephrology in the past and does not know who, is unaware who created fistula, and states that he has never had dialysis before. Dr. De Jesus spoke with Dr. Lobo for consult. Time Notified: 09:37 Call Completed: Yes 04/29/17 14:27 Consult to Occupational Therapy [CONS] Routine Comment: Evaluate, develop and implement POC Reason for Consult: discharge needs Consult to Physical Therapy [CONS] Routine Comment: Evaluate, develop and implement POC Reason for Consult: discharge needs Discharging clinician: Juan Rodriguez - Patient Status Disposition: Transfer Psychiatric Hosp Condition: Good - Discharge Instructions Follow Up With: Kimberly Bhagat DO [Primary Care Provider] - Additional Instructions: Stop taking Haldol 5mg at night, it has been replaced with Olanzapine 5mg po at night. - Diet and Activity Activity: increase activity as tolerated Diet: advance to your usual diet Hospital course: Patient is a 71-year-old male with history of schizophrenia who presented to the emergency department yesterday due to disorganized thoughts, increased irritability, and hallucinations. He was accompanied by his daughter who helps with his care at home. Patient has long history of schizophrenia and has had times of worsening symptoms and has been placed in mental health facilities and required adjustment of his medications. He reported to the admitting physician that he had been compliant with all of his medications and he denies any SI or HI. He was seen by mental health services in the emergency department and was attempt made for him to be placed at a [facility] facility, however due to his elevated creatinine and need for medical clearance, he was not accepted at that time. She is alert and oriented today, his speech is hard to understand, though I believe this is normally his baseline. He denies any thoughts of harming himself or others. He appears to be alert and oriented to name and place. He denies having hallucinations and is able to answer questions appropriately. He was evaluated by psychiatry while he was here. They recommended referral to [facility] after medical clearance for continued evaluation and treatment of his chronic bipolar disorder. Also recommend small doses of benzodiazepine for anxiety. Also recommend replacing Haldol was second- generation antipsychotic to minimize extraparametal side effects since he is having dyskinetic tongue movements, most likely due to chronic treatment with Haldol. Patient was started on Olanzapine 5mg po qhs and did well and had no difficulty. Patient had no acute episodes several days gestation acute schizophrenic behavior. He was approved to go to [facility] and discharged in stable condition. - Time Spent with Patient Total time spent providing and/or coordinating discharge services: - Constitutional Vitals: Temp Pulse Resp BP Pulse Ox 98.4 F 66 15 144/80 99 05/01/17 15:45 05/01/17 15:45 05/01/17 15:45 05/01/17 15:45 05/01/17 15:45 General appearance: Present: cooperative, A&O X 2, pleasant, no acute distress, answers questions appropriately Exam: - Head Head exam: Present: atraumatic, normal inspection, normocephalic - Eye Eye exam: Present: normal appearance, conjuntiva pink, sclera anicteric - Neck Neck exam general surgery: Present: normal inspection, supple, trachea midline. Absent: lymphadenopathy, tenderness - Respiratory Respiratory exam: Present: decreased breath sounds, CTAB. Absent: accessory muscle use, rales, respiratory distress, rhonchi, wheezes - Cardiovascular Cardiovascular exam: Present: RRR, +S1, +S2. Absent: bradycardia, diastolic murmur, gallop, rubs, systolic murmur, tachycardia - GI/Abdominal GI/Abdominal exam: Present: distended, normal bowel sounds, soft, no peritoneal signs. Absent: hepatomegaly, tenderness - Extremities Exam Extremities exam: Present: normal capillary refill, tenderness, warm, radial pulses palpable and symmetrical. Absent: calf tenderness, cyanotic, pedal edema - Neurological Exam Neurological exam: Present: alert, oriented X3, no focal deficits. Absent: facial droop, speech deficit - Skin Skin exam: Present: dry, intact, normal color, warm. Absent: rash
[2017-05-01] MEDS: OLANZapine 5 MG TAB.RAPDIS PO SCH (17:46)
--- NOTE | 2017-05-01 17:56 | Physician Discharge Referral ---
ExtendedCare Referral Info Transfer To: [facility] Institutional Level of Care: Skilled - Diagnosis (1) Schizophrenia, acute Priority: Primary Status: Acute (2) Bipolar disorder Priority: Secondary Status: Chronic (3) DM type 2 (diabetes mellitus, type 2) Priority: Secondary Status: Chronic (4) Anemia Priority: Secondary Status: Chronic - Transfer Medications Prescriptions: OLANZapine [Zyprexa Zydis] 5 mg PO QPM #30 tab.rapdis OLANZapine [Zyprexa Zydis] 5 mg PO HS #30 tab.rapdis Home Medications: Aspirin 81 mg PO QAM 02/19/15 [History] Atenolol [Tenormin] 50 mg PO QID 02/19/15 [History] Losartan/Hydrochlorothiazide [Hyzaar 100-25 Tablet] 1 each PO DAILY 02/19/15 [ History] Simvastatin [Zocor] 40 mg PO HS 02/19/15 [History] Trihexyphenidyl [Artane] 5 mg PO HS 02/19/15 [History] cloNIDine HCl [CloNIDine HCl] 0.2 mg PO TID #180 tablet 02/21/15 [Rx] Amlodipine [Norvasc] 10 mg PO DAILY 02/22/15 [History] BuPROPion [Wellbutrin] 100 mg PO DAILY 30 Days tablet 02/23/15 [Rx] Furosemide [Lasix] 40 mg PO DAILY #2 tab 09/29/16 [Rx] Doxazosin Mesylate [Cardura Xl] 8 mg PO DAILY 04/25/17 [History] Insulin Glargine,Hum.rec.anlog [Lantus Solostar] 35 unit SQ HS 04/25/17 [History ] Potassium Chloride [Klor-Con 10] 10 meq PO QID 04/25/17 [History] SitaGLIPtin [Januvia] 25 mg PO DAILY 04/25/17 [History] OLANZapine [Zyprexa Zydis] 5 mg PO QPM #30 tab.rapdis 04/29/17 [Rx] OLANZapine [Zyprexa Zydis] 5 mg PO HS #30 tab.rapdis 05/01/17 [Rx] Allergies/Adverse Reactions: 3 Allergy/AdvReac Type Severity Reaction Status Date / Time Penicillins [PCN] Allergy Anaphylaxis Verified 04/25/17 18:58 Thiopental [From Pentothal] Allergy Anaphylaxis Verified 04/25/17 18:58 furosemide AdvReac See Verified 04/25/17 18:58 Comments lisinopril AdvReac Cough Verified 04/25/17 18:58 Metolazone AdvReac See Verified 04/25/17 18:58 Comments - Respiratory Orders Smoking Cessation: Smoking cessation has been advised. For more information, call the [place] Tobacco Quit Line at 4-224-CEFZ-NOW. - Ancillary Orders May use pressure relief devices daily prn, May consult with Dentist, Survey Rodman, In Flight Refueling Craftsman PRN - Advance Directives Code Status: Full Code - Mobility Orders Chair - Rehabiliation Orders Rehab Potential: Fair Rehab Orders: Evaluation for Physical Therapy, Evaluation for Occupational Therapy - Treatments Skin tear care topically daily PRN per policy, May check for fecal impaction rectally daily PRN, Fleet enema rectally every other day PRN cleansing purposes - Diet Orders Renal CERTIFICATION: I certify that the transfer of the above named patient to an Extended Care Facility is necessary for the continuing treatment of the diagnosis listed. The above information is true and accurate reflection of patient's current condition. Confidential - Redisclosure prohibited without a patient's written consent.
== END 2017-05-01 18:35 ==
LOC: EMEROO 11:43 → 3BNU 11:43 → SUATTDRO 04-26 11:43 → 3BNU 04-26 12:21
PROVIDERS: ADMIT Internal Medicine; ATTEND Student in an Organized Health Care Education/Training Program

== ENCOUNTER 2017-11-15 22:48 | Inpatient (IN) ==
[2017-11-16] MEDS ORDERED: Naloxone 0.4 MG/ML INJ IVP PRN (02:22)
[2017-11-16 03:18] LABS: Hematocrit 35.3 % (37.5-50.1); Hemoglobin 12.1 g/dL (12.9-16.9); Mean Corpuscular HGB Conc 34.3 g/dL (31.6-35.5); Mean Corpuscular Hemoglobin 28.6 pg (28.0-33.3); Mean Corpuscular Volume 83.5 fL (83.0-100.0); Platelet Count 205 K/mcL (140-400); Red Blood Count 4.23 M/mcL (4.19-5.50); Red Cell Distribution Width 14.4 % (11.5-14.5)
[2017-11-16 03:25] LABS: Albumin 2.9 g/dL (3.5-5.7); Albumin/Globulin Ratio 1.1 (1.1-2.2); Bilirubin,Total 0.4 mg/dL (0.3-1.0); Calcium 8.6 mg/dL (8.6-10.3); Globulin 2.7 g/dL (2.4-3.5); Phosphorous 5.2 mg/dL (2.7-4.5); Potassium 3.5 mEq/L (3.5-5.1); Total Protein 5.6 g/dL (6.4-8.9)
[2017-11-16 03:29] LABS: Troponin I 0.1 ng/mL (< 0.04)
[2017-11-16] MEDS ORDERED: Aspirin 325 MG TABLET PO ONE (03:32)
[2017-11-16] MEDS: *HR* Heparin 5,000 UNIT/ML VIAL SQ SCH ×2 (06:10→17:58)
[2017-11-16] MEDS ORDERED: *HR* Labetalol 20 MG/4 ML SYRINGE IVP ONE (06:56)
--- NOTE | 2017-11-16 07:24 | Internal Med History&Physical ---
Date of Encounter: 11/16/17 Time of Encounter: 02:00 Internal Medicine - H&P: HPI Chief complaint: ESRD, hypertensive emergency Admitted From: Home Plans for Post Hospital Care: Home History of present illness: Mr. Gomez is a 72 year old male Patient presents from [facility] with elevated blood pressures and worsening kidney function. He is a resident at a shelter, and the staff there noted a change in his mental status. He has a known history of schizophrenia and dementia and previous history of stroke. The emergency room at [facility] decided to transfer the patient here for dialysis and management of his blood pressure. Patient has a fistula, which was placed about 1 year ago. He was able to follow commands during my exam, but did not answer questions very well. He did deny having any pain. Past Med Surg Social Fam HX - Past Medical History Medical history: arthritis, asthma, CHF, dementia, diabetes, hyperlipidemia, hypertension, renal disease Additional medical history: Oral dysphagia from previous stroke Psychiatric history: other - Past Surgical History Surgical History: no surgical history, other Additional surgical history: FATTY TUMOR REMOVED FROM BACK. right arm fistula- per shelter this was placed in case he needs dialysis, not in use at this time. - Social History Smoking Status: Former smoker Smokeless Tobacco Status: No Alcohol use: none Drug use: none Internal Medicine - H&P: Meds Aspirin 81 mg PO QAM 02/19/15 [History] Simvastatin [Zocor] 20 mg PO HS 02/19/15 [History] Trihexyphenidyl [Artane] 5 mg PO HS 02/19/15 [History] Amlodipine [Norvasc] 5 mg PO DAILY 02/22/15 [History] BuPROPion [Wellbutrin] 100 mg PO DAILY 30 Days tablet 02/23/15 [Rx] Furosemide [Lasix] 40 mg PO DAILY #2 tab 09/29/16 [Rx] Doxazosin Mesylate [Cardura Xl] 8 mg PO DAILY 04/25/17 [History] Insulin Glargine,Hum.rec.anlog [Lantus Solostar] 15 unit SQ HS 04/25/17 [History ] Potassium Chloride [Klor-Con 10] 10 meq PO QID 04/25/17 [History] SitaGLIPtin [Januvia] 25 mg PO DAILY 04/25/17 [History] Ascorbate Calcium [Vitamin C] 500 mg PO DAILY 06/23/17 [History] Ferrous Sulfate [Iron] 325 mg PO DAILY 06/23/17 [History] Haloperidol [Haldol] 5 mg PO HS 06/23/17 [History] Folic Acid 0.4 mg PO DAILY 10/04/17 [History] Losartan Potassium [Cozaar] 50 mg PO DAILY 10/04/17 [History] Ondansetron ODT [Zofran ODT] 4 mg SL Q6HR PRN #12 tab.rapdis 10/04/17 [Rx] cloNIDine HCl [CloNIDine HCl] 0.4 mg PO TID 10/04/17 [History] SitaGLIPtin [Januvia] 25 mg PO DAILY 11/15/17 [History] Tamsulosin [Flomax] 0.4 mg PO DAILY 11/15/17 [History] 3 Allergy/AdvReac Type Severity Reaction Status Date / Time Penicillins [PCN] Allergy Anaphylaxis Verified 04/25/17 18:58 Thiopental [From Pentothal] Allergy Anaphylaxis Verified 04/25/17 18:58 furosemide AdvReac See Verified 04/25/17 18:58 Comments lisinopril AdvReac Cough Verified 04/25/17 18:58 Metolazone AdvReac See Verified 04/25/17 18:58 Comments All Systems PM: A 10-system review of systems was performed and is negative for pertinent findings except as documented above in the HPI. - Constitutional Vitals: Temp Pulse Resp BP Pulse Ox 99.3 F 81 20 212/88 98 11/16/17 06:54 11/16/17 06:54 11/16/17 06:54 11/16/17 06:54 11/16/17 06:54 General appearance: Present: cooperative, mild distress, pleasant - Head Head exam: Present: normal inspection - Eye Eye exam: Present: EOMI, normal appearance - Respiratory Respiratory exam: Present: CTAB. Absent: chest wall tenderness, respiratory distress - Cardiovascular Cardiovascular exam: Present: RRR, systolic murmur - GI/Abdominal GI/Abdominal exam: Present: normal bowel sounds. Absent: guarding, tenderness - Extremities Exam Extremities exam: Present: warm, radial pulses palpable and symmetrical. Absent : calf tenderness Additional comments: strong pulse on right arm. - Neurological Exam Neurological exam: Present: alert, altered. Absent: facial droop, speech deficit - Skin Skin exam: Present: normal color, warm. Absent: rash Internal Med - H&P Results - Labs CBC & Chem 7: 11/16/17 02:52 11/16/17 02:52 Labs: Short CBC 11/16/17 Range/Units 02:52 WBC 10.2 (4.3-11.1) K/mcL Hgb 12.1 L D (12.9-16.9) g/dL Hct 35.3 L (37.5-50.1) % Plt Count 205 (140-400) K/mcL BMP 11/16/17 02:52 Sodium 142 Potassium 3.5 Chloride 112 H Carbon Dioxide 18 L BUN 49 H Creatinine 5.81 H Glucose 160 H Calcium 8.6 Cardiac Enzymes 11/16/17 11/16/17 Range/Units 02:52 02:52 Troponin I 0.10 H* 0.10 H* (< 0.04) ng/mL Liver Function 11/16/17 Range/Units 02:52 Total Bilirubin 0.4 (0.3-1.0) mg/dL AST 11 L (13-39) Units/L ALT 12 (7-52) Units/L Alkaline Phosphatase 142 H (34-104) Units/L Albumin 2.9 L (3.5-5.7) g/dL - Assessment and plan (1) Hypertensive emergency Current Visit: Yes Status: Acute Assessment and plan: Patient's blood pressures at the [facility] ER were elevated >200 systolic. Hypertensive emergency as patient is now end stage renal failure. Hydralazine was given at the [facility] ER, and pressures improved. Patient needs dialysis for definitive treatment. Second dose of Hydralazine given after he was admitted here, and patient's blood pressures remained elevated. Labetalol 10mg IV also given to help control it. Dialysis today. Continue to monitor blood pressures. (2) End stage renal disease Current Visit: Yes Status: Acute Assessment and plan: Patient has AV fistula, which was installed 1 year ago. He is apparently well known to the nephrologists here at [place]. GFR on initial labs was 9. Dialysis today. (3) DM type 2 (diabetes mellitus, type 2) Current Visit: No Status: Chronic Assessment and plan: Patient is an insulin dependent diabetic. Blood sugars not elevated on labs. Continue to monitor Basal insulin at night Low dose sliding scale with meals. ACHS glucose checks. Qualifiers: Diabetes mellitus mcc insulin use: with terminal computer operator use Diabetes mellitus complication status: without complication Qualified Code(s): E11.9 - Type 2 diabetes mellitus without complications; Z79.4 - shelter (current) use of insulin (4) Elevated troponin Current Visit: Yes Status: Acute Assessment and plan: 0.10 after being 0.06 at [facility]. Likely related to his kidney disease. Ordered EKG at the time and compared to previous. EKG showed PVCs but no ST changes. Patient continued to deny chest pain. Continue to trend troponins. Monitor for signs of chest pain as patient does not communicate well. (5) Schizophrenia, disorganized, chronic Current Visit: No Status: Chronic Assessment and plan: Chronic, continue home meds. Consider psych consult if still altered after dialysis. (6) Depression Current Visit: No Status: Acute Assessment and plan: Chronic, continue home meds. Qualifiers: Qualified Code(s): F32.9 - Major depressive disorder, single episode, unspecified (7) Bipolar disorder Current Visit: No Status: Chronic Assessment and plan: chronic, continue home meds. Qualifiers: Active/Remission status: currently active Current bipolar episode type: mixed Current episode severity: moderate Qualified Code(s): F31.62 - Bipolar disorder, current episode mixed, moderate (8) DVT prophylaxis Current Visit: No Status: Acute Assessment and plan: Heparin - Time Spent With Patient Total time spent is greater than 50% in coordination of care (as documented) at patient's floor/unit and/or counseling patient:
[2017-11-16] MEDS ORDERED: *HR* Dextrose 50 % in Water (Syg) 50 ML SYRINGE IVP PRN (07:52)
[2017-11-16] MEDS ORDERED: D5% in Water 1,000 ML IVC PRN (07:52)
[2017-11-16] MEDS ORDERED: Dextrose Gel 15 GM/37.5 ML TUBE PO PRN ×2 (07:52)
--- NOTE | 2017-11-16 08:11 | Nephrology Consult Note ---
Date of Encounter: 11/16/17 Time of Encounter: 08:09 Assessment and Plan (1) Chronic kidney disease, stage IV (severe) Current Visit: Yes Status: Acute The patient has stage IV chronic kidney disease in the setting of diabetes and hypertension. He presents with a worsening serum creatinine. This may be related to poorly controlled hypertension. There may be a component of acute kidney injury with this may simply represent progression of his underlying chronic kidney disease. There is no acute indication for urgent dialysis. He is not volume overloaded. Potassium is not elevated. Acid-base status is satisfactory. I believe the main focus of treatment currently should be on controlling his blood pressure. My recommendation would be to transfer the patient to a floor where he could be placed on a Cardene drip to have his blood pressure closely monitored. I would suggest reducing his systolic blood pressure to around 150. We will continue to monitor his renal function. Should his renal function failed to improve we can certainly initiate dialysis while he is here in the hospital. (2) Altered mental status Current Visit: No Status: Acute Qualifiers: Altered mental status type: unspecified Qualified Code(s): R41.82 - Altered mental status, unspecified (3) Hypertensive urgency Current Visit: No Status: Acute History of Present Illness - History of Present Illness This is a 72-year-old male who is followed is an outpatient for stage IV chronic kidney disease. Baseline creatinine ranges from 2.74.2. This is in the setting of diabetes and hypertension. Patient was admitted to the hospital with a history of mental status changes. Patient is unable to give much history on his own and history is obtained from the medical record. During his hospital stays had poorly controlled hypertension. Most recent blood pressure was 212/88. He is on multiple antihypertensive medications at home. It is unclear if he has been taking these medications. From a renal perspective his creatinine is worsening. Current creatinine is 5.1 with a GFR of 10. Potassium is 3.5 and bicarbonate is 18. Patient appears alert but he answers only a few questions. He does deny any shortness of breath chest pain nausea or vomiting. He does say that he is not hungry. He does not appear to be in any acute distress. He does have a fistula in place but is never been dialyzed. Past Med Surg Social Fam HX - Past Medical History Medical history: arthritis, asthma, CHF, dementia, diabetes, hyperlipidemia, hypertension, renal disease Additional medical history: Oral dysphagia from previous stroke Psychiatric history: other - Past Surgical History Surgical History: no surgical history, other Additional surgical history: FATTY TUMOR REMOVED FROM BACK. right arm fistula- per care home this was placed in case he needs dialysis, not in use at this time. - Social History Smoking Status: Former smoker Smokeless Tobacco Status: No Alcohol use: none Drug use: none Medications and Allergies Aspirin 81 mg PO QAM 02/19/15 [History] Simvastatin [Zocor] 20 mg PO HS 02/19/15 [History] Trihexyphenidyl [Artane] 5 mg PO HS 02/19/15 [History] Amlodipine [Norvasc] 5 mg PO DAILY 02/22/15 [History] BuPROPion [Wellbutrin] 100 mg PO DAILY 30 Days tablet 02/23/15 [Rx] Furosemide [Lasix] 40 mg PO DAILY #2 tab 09/29/16 [Rx] Doxazosin Mesylate [Cardura Xl] 8 mg PO DAILY 04/25/17 [History] Insulin Glargine,Hum.rec.anlog [Lantus Solostar] 15 unit SQ HS 04/25/17 [History ] Potassium Chloride [Klor-Con 10] 10 meq PO QID 04/25/17 [History] SitaGLIPtin [Januvia] 25 mg PO DAILY 04/25/17 [History] Ascorbate Calcium [Vitamin C] 500 mg PO DAILY 06/23/17 [History] Ferrous Sulfate [Iron] 325 mg PO DAILY 06/23/17 [History] Haloperidol [Haldol] 5 mg PO HS 06/23/17 [History] Folic Acid 0.4 mg PO DAILY 10/04/17 [History] Losartan Potassium [Cozaar] 50 mg PO DAILY 10/04/17 [History] Ondansetron ODT [Zofran ODT] 4 mg SL Q6HR PRN #12 tab.rapdis 10/04/17 [Rx] cloNIDine HCl [CloNIDine HCl] 0.4 mg PO TID 10/04/17 [History] SitaGLIPtin [Januvia] 25 mg PO DAILY 11/15/17 [History] Tamsulosin [Flomax] 0.4 mg PO DAILY 11/15/17 [History] 3 Allergy/AdvReac Type Severity Reaction Status Date / Time Penicillins [PCN] Allergy Anaphylaxis Verified 04/25/17 18:58 Thiopental [From Pentothal] Allergy Anaphylaxis Verified 04/25/17 18:58 furosemide AdvReac See Verified 04/25/17 18:58 Comments lisinopril AdvReac Cough Verified 04/25/17 18:58 Metolazone AdvReac See Verified 04/25/17 18:58 Comments Review of Systems ROS unobtainable: due to mental status Exam - Vital Signs Vital signs: Initial Vital Signs Temp Pulse Resp BP Pulse Ox 97.5 F L 70 17 155/95 98 11/16/17 00:30 11/16/17 00:30 11/16/17 00:30 11/16/17 00:30 11/16/17 00:30 Vital Signs - Last 8 Hours Temp Pulse Resp BP Pulse Ox 11/16/17 07:43 98.4 F 71 18 98 11/16/17 06:54 99.3 F 81 20 212/88 98 11/16/17 04:28 98 11/16/17 04:18 188/81 11/16/17 03:43 98.9 F 91 17 213/88 95 11/16/17 00:45 98.5 F 84 17 155/95 98 11/16/17 00:30 97.5 F L 70 17 155/95 98 Intake and Output 11/15/17 11/16/17 11/16/17 23:59 07:59 15:59 Intake Total 50 / 50 Balance 50 / 50 Intake: Oral 50 / 50 Other: # Urine Diapers 1 Weight 85.2 kg Blood Glucose* 146 Patient Weight 11/16/17 23:59 Weight 85.2 kg - General Appearance Exam: Patient will respond to his name. He will only answer a few questions. He is in no acute distress. Blood pressure 212/88. Lungs symmetric breath sounds otherwise clear. Heart regular rate and rhythm without any friction rub. Abdomen shows normal bowel sounds of bruits masses or megaly or tenderness. There is no lower extremity swelling. There is a functioning AV fistula in the right upper extremity. Results - Lab Results 11/16/17 02:52 11/16/17 02:52 Most recent lab results Calcium 8.6 mg/dL (8.6-10.3) 11/16/17 02:52 Phosphorus 5.2 mg/dL (2.7-4.5) H 11/16/17 02:52 Consult Discharge Plan - Plan Referrals: Hang Hollingsworth MD [Primary Care Provider] -
[2017-11-16] MEDS: cloNIDine HCl 0.1 MG TABLET PO SCH ×3 (08:36→19:59)
[2017-11-16] MEDS: niCARdipine 40 MG/200 ML MLS IVC SCH ×3 (10:27→23:23)
[2017-11-16] MEDS: Insulin LISPRO 300 UNITS/3 ML VIAL SQ SCH ×2 (13:03→18:06)
[2017-11-16] MEDS: Insulin DETEMIR 100 UNIT/ML X5UNITS SQ SCH (20:08)
--- NOTE | 2017-11-16 22:51 | Event Note ---
Date of Encounter: 11/16/17 Time of Encounter: 10:30 This is after midnight admission. See H&P prepared by the admitting physician. I saw him in the morning. 98% on 24%. CBC is normal. Bicarbonate is 18. Creatinine is 5.81. GFR is 10. Troponin is between 0.10 and 0.27. Alert. Not talking to me. Not following my commands. No distress is seen. Nephrology is consulted. Nicardipine drip has been started.
[2017-11-17] MEDS: niCARdipine 40 MG/200 ML MLS IVC SCH ×3 (04:43→16:38)
[2017-11-17] MEDS: *HR* Heparin 5,000 UNIT/ML VIAL SQ SCH ×2 (05:50→16:39)
[2017-11-17 06:11] LABS: Albumin 2.7 g/dL (3.5-5.7); Bilirubin,Total 0.3 mg/dL (0.3-1.0); Calcium 8.3 mg/dL (8.6-10.3); Globulin 2.6 g/dL (2.4-3.5); Potassium 3.7 mEq/L (3.5-5.1); Total Protein 5.3 g/dL (6.4-8.9)
--- NOTE | 2017-11-17 07:53 | Nephrology Progress Note ---
Date of Encounter: 11/17/17 Time of Encounter: 07:51 - Assessment and Plan (1) Chronic kidney disease, stage IV (severe) Current Visit: Yes Status: Acute I am going to increase the patient's clonidine and get him started on nifedipine in hopes that we can get him off the Cardene drip. I suspect he is going to require initiation of dialysis tomorrow. I did discuss this with the patient and he said he is agreeable. (2) Altered mental status Current Visit: No Status: Acute Qualifiers: Altered mental status type: unspecified Qualified Code(s): R41.82 - Altered mental status, unspecified (3) Hypertensive urgency Current Visit: No Status: Acute Subjective Interval history: Patient denies any new complaints. He denies any nausea shortness of breath or chest pain. He is now on a Cardene drip. Blood pressure is 140/72. Creatinine is going up to 7.07. Potassium is 3.7. Heart rate is in the 90s. Objective - Vital Signs Vital signs: Vital Signs Temp Pulse Resp BP Pulse Ox 11/17/17 06:00 84 140/72 11/17/17 05:00 92 160/86 11/17/17 04:24 97.5 F L 107 22 149/63 96 11/17/17 04:00 89 149/63 11/17/17 03:00 101 139/82 11/17/17 02:00 82 139/66 11/17/17 01:00 94 126/101 11/17/17 00:09 97.7 F 68 18 136/74 95 11/17/17 00:00 80 136/74 11/16/17 23:00 77 139/69 11/16/17 22:00 78 140/69 11/16/17 21:30 81 134/67 11/16/17 20:30 81 153/67 11/16/17 20:02 78 11/16/17 19:57 98 F 96 18 157/79 94 11/16/17 19:30 82 157/79 11/16/17 18:05 76 145/72 11/16/17 16:25 81 151/73 11/16/17 15:55 79 171/78 94 11/16/17 15:10 98.7 F 70 18 168/95 96 11/16/17 13:50 67 185/96 98 11/16/17 13:04 61 139/68 98 11/16/17 12:00 98.8 F 69 18 142/71 98 11/16/17 11:48 73 129/70 11/16/17 10:51 70 161/74 11/16/17 10:36 69 178/84 97 11/16/17 09:53 98.4 F 69 20 212/102 99 Intake and Output 11/16/17 11/16/17 11/17/17 15:59 23:59 07:59 Intake Total 239.1 / 239.1 269.9 / 269.9 200 / 200 Balance 239.1 / 239.1 269.9 / 269.9 200 / 200 Intake: IV Fluids 99.1 / 99.1 269.9 / 269.9 200 / 200 Cardene Premix 40mg/200ml 40 mg 99.1 / 99.1 269.9 / 269.9 200 / 200 In 200 ml @ 5 MG/HR 25 mls/hr IVC .Q8H [facility] Rx#:[id number] Oral 140 / 140 0 / 0 Other: Meal Lunch Dinner Percent of Meal Consumed 0% 0% # Urine Diapers 1 Weight 77.7 kg Blood Glucose* 132 172 Patient Weight 11/17/17 23:59 Weight 77.7 kg - General Appearance Exam: Patient is alert. He does shake his head in response to simple questions. He is in no acute distress. Lungs symmetric breath sounds otherwise clear. Heart regular rate and rhythm with a systolic murmur. There is no friction rub. Abdomen is benign. There is no peripheral edema. There is an AV fistula in the right upper extremity. - Lab 11/16/17 02:52 11/17/17 05:36 Most recent lab results Calcium 8.3 mg/dL (8.6-10.3) L 11/17/17 05:36 Phosphorus 5.2 mg/dL (2.7-4.5) H 11/16/17 02:52 Consult Discharge Plan - Plan Referrals: Hang Hollingsworth MD [Primary Care Provider] -
[2017-11-17] MEDS: NIFEdipine XL (24 HR) 30 MG TAB.ER.24 PO SCH ×2 (08:45→20:48)
[2017-11-17] MEDS: cloNIDine HCl 0.1 MG TABLET PO SCH ×4 (08:45→20:48)
[2017-11-17] MEDS: Insulin LISPRO 300 UNITS/3 ML VIAL SQ SCH ×3 (09:21→16:42)
[2017-11-17] MEDS: Insulin DETEMIR 100 UNIT/ML X5UNITS SQ SCH (20:48)
[2017-11-17 21:36] LABS: Hepatitis B Surface Antigen Nonreactive (Nonreactive)
--- NOTE | 2017-11-17 23:28 | Internal Med Progress Note ---
Date of Encounter: 11/17/17 Time of Encounter: 23:26 - Assessment and plan (1) Hypertensive emergency Current Visit: Yes Status: Acute (2) Altered mental status Current Visit: No Status: Acute Qualifiers: Altered mental status type: unspecified Qualified Code(s): R41.82 - Altered mental status, unspecified (3) DM type 2 (diabetes mellitus, type 2) Current Visit: Yes Status: Chronic Qualifiers: Diabetes mellitus nursing home insulin use: with department head [employer] or [employer] use Diabetes mellitus complication status: without complication Qualified Code(s): E11.9 - Type 2 diabetes mellitus without complications; Z79.4 - digital communications manager (current) use of insulin (4) ESRD on hemodialysis Current Visit: Yes Status: Chronic (5) Schizophrenia Current Visit: Yes Status: Chronic Qualifiers: Schizophrenia type: unspecified Qualified Code(s): F20.9 - Schizophrenia, unspecified - Time Spent With Patient Total time spent is greater than 50% in coordination of care (as documented) at patient's floor/unit and/or counseling patient: 25 - 35 minutes - Subjective Interval history: .. The patient sleeps a lot. When alert he communicates with us in a very limited manner; answers yes or no or very simple questions. He knows he is first name and last name; otherwise he is disoriented. No distress is seen. OBJECTIVE: .. Skin: Free of rash and discoloration Respiratory: Normal breath sounds; no crackles or wheezes. CV: Heart is regular; no gallop or murmur. GI: Abdomen is soft and not tender. There is no palpable mass or visceromegaly. Neuro: There is no focal deficits. ASSESSMENT AND PLAN: .. Hypertensive emergency. We appreciate help from nephrology. He gets nicardipine drip. He is started on by mouth clonidine and by mouth Procardia XL. He gets when necessary IV hydralazine. Altered mental status. Will repeat CT of the brain. This condition could be secondary to his high blood pressure. It could be secondary to his schizophrenia. He very likely suffers from advanced dementia. I talked to his family about differential diagnosis for this problem. Type 2 diabetes mellitus with end-stage renal disease (on hemodialysis). He gets up when necessary Humalog. He is on diabetic diet. Hemodialysis is provided by nephrology. Schizophrenia. The treatment consists of Artane and haloperidol. - Constitutional Vitals: Temp Pulse Resp BP Pulse Ox 98 F 72 93 119/66 94 11/17/17 22:39 11/17/17 22:39 11/17/17 22:39 11/17/17 22:39 11/17/17 16:40 General appearance: Present: cooperative, mild distress, pleasant Internal Medicine: Result - Labs CBC & Chem 7: 11/21/17 03:41 11/21/17 03:41 Labs: BMP 11/17/17 05:36 Sodium 143 Potassium 3.7 Chloride 110 H Carbon Dioxide 21 L BUN 63 H Creatinine 7.07 H Glucose 183 H Calcium 8.3 L Liver Function 11/17/17 Range/Units 05:36 Total Bilirubin 0.3 (0.3-1.0) mg/dL AST 9 L (13-39) Units/L ALT 10 (7-52) Units/L Alkaline Phosphatase 119 H (34-104) Units/L Albumin 2.7 L (3.5-5.7) g/dL - Impressions Impressions Head CT 11/17/17 14:34 IMPRESSION: 1. No acute intracranial abnormality. 2. Moderate global parenchymal volume loss with chronic microvascular ischemic change. 3. Atherosclerosis. 4. Complete opacification of the left maxillary sinus. D/ / Jax Carrillo MD / Jax Carrillo MD Interpreting Provider: Jax Carrillo MD Consult Discharge Plan - Plan Additional Instructions: Follow up with [facility] physician in 2-3 days after discharge. Recheck BP at that time and adjust BP medications as necessary. Recheck BMP and CBC at that time. Keep outpatient dialysis schedule. Follow up with nephrology as directed. Referrals: Hang Hollingsworth MD [Primary Care Provider] - (Patient is from [facility] no PCP appointment needed) Prescriptions: cloNIDine HCl [CloNIDine HCl] 0.3 mg PO TID 4 Days #36 tablet Doxazosin [Cardura] 8 mg PO HS 4 Days #8 tablet Losartan [Cozaar] 50 mg PO BID 4 Days #16 tablet NIFEdipine XL (24 HR) [Procardia XL] 30 mg PO BID 4 Days #8 tab.[id number]
[2017-11-18 02:18] LABS: Albumin 2.6 g/dL (3.5-5.7); Albumin/Globulin Ratio 1.1 (1.1-2.2); Bilirubin,Total 0.2 mg/dL (0.3-1.0); Calcium 8.1 mg/dL (8.6-10.3); Globulin 2.3 g/dL (2.4-3.5); Potassium 3.7 mEq/L (3.5-5.1); Total Protein 4.9 g/dL (6.4-8.9)
[2017-11-18] MEDS: *HR* Heparin 5,000 UNIT/ML VIAL SQ SCH ×2 (05:35→18:38)
--- NOTE | 2017-11-18 07:12 | Electrocardiograph Report ---
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
[2017-11-18] MEDS: Insulin LISPRO 300 UNITS/3 ML VIAL SQ SCH ×3 (08:24→17:44)
[2017-11-18] MEDS: NIFEdipine XL (24 HR) 30 MG TAB.ER.24 PO SCH ×2 (09:21→20:22)
[2017-11-18] MEDS: cloNIDine HCl 0.1 MG TABLET PO SCH ×3 (09:21→20:21)
--- NOTE | 2017-11-18 11:52 | Nephrology Progress Note ---
Date of Encounter: 11/18/17 Time of Encounter: 11:20 - Assessment and Plan (1) End stage renal disease Current Visit: Yes Status: Acute SBP 120-140. Creat 7.71.Discussed with Dr. Lobo will start HD tomorrow. Subjective Interval history: Awake, nonverbal, watching tv. Objective - Vital Signs Vital signs: Vital Signs Temp Pulse Resp BP Pulse Ox 11/18/17 11:39 98.6 F 76 18 111/99 94 11/18/17 06:51 98.7 F 67 18 136/72 100 11/18/17 04:00 74 140/77 11/18/17 03:30 77 139/78 11/18/17 02:57 98.8 F 72 94 133/65 11/18/17 02:30 66 124/71 11/18/17 01:30 67 120/61 11/18/17 00:45 65 128/66 11/18/17 00:15 68 126/66 11/18/17 00:00 81 154/94 11/17/17 23:45 74 152/68 11/17/17 23:00 80 116/58 11/17/17 22:39 98 F 72 93 119/66 11/17/17 22:00 72 112/54 11/17/17 21:00 87 147/69 11/17/17 20:59 66 11/17/17 20:00 74 154/74 11/17/17 19:33 74 93 136/73 11/17/17 19:00 69 136/73 11/17/17 17:40 73 89 123/69 11/17/17 16:40 98.0 F 79 18 146/79 94 11/17/17 13:10 143/78 Intake and Output 11/17/17 11/18/17 11/18/17 23:59 07:59 15:59 Intake Total 405.5 / 405.5 Balance 405.5 / 405.5 Intake: IV Fluids 305.5 / 305.5 Cardene Premix 40mg/200ml 40 mg 305.5 / 305.5 In 200 ml @ 5 MG/HR 25 mls/hr IVC .Q8H [facility] Rx#:[id number] Oral 100 / 100 Other: Meal Breakfast Percent of Meal Consumed 0% # Urine Diapers 1 Blood Glucose* 184 95 103 - General Appearance General appearance: Present: well-developed, well-nourished, appears started age EENT: Present: mucous membranes moist Neck: Present: no JVD Respiratory: Present: clear Cardiology: Present: no edema Dialysis Vascular Access: Arteriovenous Fistula thrill: Yes bruit: Yes Additional Comments: right brachiocephalic Gastrointestinal: Present: normoactive bowel sounds, no tenderness Integumentary: Present: warm and dry Psychiatric: Present: mood/affect appropriate, cooperative - Lab 11/16/17 02:52 11/18/17 01:17 Most recent lab results Calcium 8.1 mg/dL (8.6-10.3) L 11/18/17 01:17 Phosphorus 6.6 mg/dL (2.7-4.5) H 11/17/17 09:29 Consult Discharge Plan - Plan Referrals: Hang Hollingsworth MD [Primary Care Provider] - (Patient is from [facility] no PCP appointment needed)
[2017-11-18] MEDS: niCARdipine 40 MG/200 ML MLS IVC SCH ×2 (16:29→20:11)
[2017-11-18] MEDS ORDERED: Ondansetron ODT 4 MG TAB.RAPDIS SL PRN (17:10)
[2017-11-18] MEDS: Acetaminophen 325 MG TABLET PO PRN (17:43)
[2017-11-18] MEDS: Insulin DETEMIR 100 UNIT/ML X5UNITS SQ SCH (20:19)
--- NOTE | 2017-11-18 23:24 | Internal Med Progress Note ---
Date of Encounter: 11/18/17 Time of Encounter: 23:24 - Assessment and plan (1) Hypertensive emergency Current Visit: Yes Status: Acute (2) Altered mental status Current Visit: No Status: Acute Qualifiers: Altered mental status type: unspecified Qualified Code(s): R41.82 - Altered mental status, unspecified (3) DM type 2 (diabetes mellitus, type 2) Current Visit: No Status: Chronic Qualifiers: Diabetes mellitus assisted insulin use: with assisted use Diabetes mellitus complication status: without complication Qualified Code(s): E11.9 - Type 2 diabetes mellitus without complications; Z79.4 - skilled nursing (current) use of insulin (4) ESRD on hemodialysis Current Visit: Yes Status: Acute (5) Schizophrenia Current Visit: Yes Status: Acute Qualifiers: Schizophrenia type: unspecified Qualified Code(s): F20.9 - Schizophrenia, unspecified - Time Spent With Patient Total time spent is greater than 50% in coordination of care (as documented) at patient's floor/unit and/or counseling patient: - Subjective Interval history: .. The patient sleeps a lot. He is not showing any distress. He takes his medications and the small portions of food. He follows a simple commands. His blood pressure went high again. Nicardipine drip has been restarted. OBJECTIVE: .. Skin: Free of rash and discoloration ENMT: Oral/pharyngeal mucosa is normal in appearance. Eyes: Sclera is white. There is no discharge from eyes. Respiratory: Normal breath sounds; no crackles or wheezes. CV: Heart is regular; no gallop or murmur. GI: Abdomen is soft and not tender. There is no palpable mass or visceromegaly. Neuro: There is no focal deficits. ASSESSMENT AND PLAN: .. Malignant hypertension. See notes from nephrology. To continue on nicardipine drip. He is started on clonidine and Procardia XL. Altered mental status. We will repeat his CT of brain. It shows chronic, old related changes. He has underlying schizophrenia. End-stage renal disease. Hemodialysis, as per nephrology. Type 2 diabetes mellitus. We will continue diabetic diet, Levemir and when necessary Humalog. Psychiatric problems. Likely schizophrenia and bipolar disorder. We will restart Artane and haloperidol. - Constitutional Vitals: Temp Pulse Resp BP Pulse Ox 98.7 F 58 18 103/65 92 11/18/17 19:57 11/18/17 21:45 11/18/17 19:57 11/18/17 21:45 11/18/17 19:57 General appearance: Present: no acute distress Internal Medicine: Result - Labs CBC & Chem 7: 11/16/17 02:52 11/18/17 01:17 Labs: BMP 11/18/17 01:17 Sodium 142 Potassium 3.7 Chloride 111 H Carbon Dioxide 23 BUN 71 H Creatinine 7.71 H Glucose 215 H Calcium 8.1 L Liver Function 11/18/17 Range/Units 01:17 Total Bilirubin 0.2 L (0.3-1.0) mg/dL AST 8 L (13-39) Units/L ALT 8 (7-52) Units/L Alkaline Phosphatase 107 H (34-104) Units/L Albumin 2.6 L (3.5-5.7) g/dL Consult Discharge Plan - Plan Referrals: Hang Hollingsworth MD [Primary Care Provider] - (Patient is from [facility] no PCP appointment needed)
[2017-11-19] MEDS: niCARdipine 40 MG/200 ML MLS IVC SCH ×2 (03:43→09:30)
[2017-11-19] MEDS ORDERED: 0.9 % Sodium Chloride 1,000 ML ONE (05:11)
[2017-11-19] MEDS ORDERED: 0.9 % Sodium Chloride 250 ML IVC PRN (05:17)
[2017-11-19] MEDS: *HR* Heparin 5,000 UNIT/ML VIAL SQ SCH ×2 (05:26→17:48)
[2017-11-19] MEDS ORDERED: 0.9 % Sodium Chloride 1,000 ML PRIME SCH (05:30)
--- NOTE | 2017-11-19 08:35 | Nephrology Progress Note ---
Date of Encounter: 11/19/17 Time of Encounter: 08:33 - Assessment and Plan (1) Chronic kidney disease, stage IV (severe) Current Visit: Yes Status: Acute The patient will continue to be supported with dialysis 3 days per week. I am going to make additional changes to his antihypertensive regimen. He also will be started on a phosphorus binder. He will need to have arrangements made for outpatient dialysis following hospital discharge. (2) Altered mental status Current Visit: No Status: Acute Qualifiers: Altered mental status type: unspecified Qualified Code(s): R41.82 - Altered mental status, unspecified (3) Hypertensive urgency Current Visit: No Status: Acute Subjective Interval history: The patient is seen and examined in dialysis. His AV fistula is functioning well. Blood pressure ranges from 150-180 systolic. Patient denies any complaints. He appears to be tolerating the dialysis well. Objective - Vital Signs Vital signs: Vital Signs Temp Pulse Resp BP Pulse Ox 11/19/17 08:10 157/74 11/19/17 07:55 155/74 11/19/17 07:40 155/73 11/19/17 07:25 184/94 11/19/17 07:10 188/91 11/19/17 06:55 175/92 11/19/17 06:40 186/91 11/19/17 06:25 187/92 11/19/17 06:10 172/93 11/19/17 05:55 185/88 11/19/17 05:40 97.6 F 18 185/87 11/19/17 03:34 98.2 F 63 17 140/74 94 11/19/17 01:00 56 86/44 11/19/17 00:45 56 93/45 11/19/17 00:30 59 118/61 11/19/17 00:21 98.1 F 59 17 112/64 95 11/19/17 00:00 57 116/64 11/18/17 23:30 62 128/66 11/18/17 23:00 54 111/62 11/18/17 22:30 54 111/62 11/18/17 22:15 55 112/63 11/18/17 22:00 56 114/61 11/18/17 21:45 58 103/65 11/18/17 21:35 59 95/57 06/25/18 21:15 57 131/68 06/25/18 21:00 59 135/69 11/18/17 20:45 64 152/77 11/18/17 20:30 61 135/67 11/18/17 20:00 62 131/65 11/18/17 19:57 98.7 F 65 18 131/66 92 11/18/17 19:00 67 165/80 11/18/17 17:56 176/89 11/18/17 17:23 182/97 11/18/17 17:00 177/92 11/18/17 16:31 180/89 96 11/18/17 16:00 98.7 F 80 18 182/82 93 11/18/17 15:28 157/77 11/18/17 12:00 111/99 11/18/17 11:39 98.6 F 76 18 111/99 94 Intake and Output 11/18/17 11/19/17 11/19/17 23:59 07:59 15:59 Intake Total 435.0 / 435.0 638 / 638 Balance 435.0 / 435.0 638 / 638 Intake: IV Fluids 235.0 / 235.0 38 / 38 Cardene Premix 40mg/200ml 40 mg 235.0 / 235.0 38 / 38 In 200 ml @ 5 MG/HR 25 mls/hr IVC .Q8H [facility] Rx#:[id number] Oral 200 / 200 0 / 0 Intake, Rinseback and Flushes 600 / 600 Other: Weight 71.7 kg Blood Glucose* 229 Hemodialysis Net Fluid Removed 451 500 (mL) Patient Weight 11/19/17 23:59 Weight 71.7 kg - General Appearance Exam: Patient is on dialysis. He is in no acute distress. Lungs mage breath sounds otherwise clear. Heart regular rate and rhythm. Abdomen is benign. There is no lower extremity swelling. His right upper extremity AV fistula. - Lab 11/16/17 02:52 11/18/17 01:17 Most recent lab results Calcium 8.1 mg/dL (8.6-10.3) L 11/18/17 01:17 Phosphorus 6.6 mg/dL (2.7-4.5) H 11/17/17 09:29 Consult Discharge Plan - Plan Referrals: Hang Hollingsworth MD [Primary Care Provider] - (Patient is from [facility] no PCP appointment needed)
[2017-11-19] MEDS: Insulin LISPRO 300 UNITS/3 ML VIAL SQ SCH ×3 (09:29→17:25)
[2017-11-19] MEDS: cloNIDine HCl 0.1 MG TABLET PO SCH ×3 (09:33→20:49)
[2017-11-19] MEDS: NIFEdipine XL (24 HR) 30 MG TAB.ER.24 PO SCH ×2 (09:34→20:52)
--- NOTE | 2017-11-19 15:04 | Internal Med Progress Note ---
Date of Encounter: 11/19/17 Time of Encounter: 14:47 - Assessment and plan (1) Hypertensive emergency Current Visit: Yes Status: Acute Assessment and plan: BP now normal. Nephrology consulted; appreciate input in managing anti- hypertensives. Monitor vitals closely. (2) End stage renal disease Current Visit: Yes Status: Chronic Assessment and plan: Nephrology consulted; appreciate input. Continue dialysis per schedule. (3) Dementia Current Visit: Yes Status: Chronic Assessment and plan: Restarted home medications today. Qualifiers: Dementia type: unspecified type Dementia behavioral disturbance: without behavioral disturbance Qualified Code(s): F03.90 - Unspecified dementia without behavioral disturbance (4) Bipolar disorder Current Visit: Yes Status: Chronic Assessment and plan: Restarted home medications today. Qualifiers: Active/Remission status: currently active Current bipolar episode type: mixed Current episode severity: moderate Qualified Code(s): F31.62 - Bipolar disorder, current episode mixed, moderate (5) DM type 2 (diabetes mellitus, type 2) Current Visit: Yes Status: Chronic Assessment and plan: Continue accuchecks and SSI QID AC/HS. Continue levemir. Qualifiers: Diabetes mellitus exterminator helper insulin use: with fpc use Diabetes mellitus complication status: without complication Qualified Code(s): E11.9 - Type 2 diabetes mellitus without complications; Z79.4 - manager intermediate (current) use of insulin (6) Schizophrenia, disorganized, chronic Current Visit: Yes Status: Chronic Assessment and plan: Restarted home medications today. (7) DVT prophylaxis Current Visit: Yes Status: Acute Assessment and plan: Continue SQ heparin. - Time Spent With Patient Total time spent is greater than 50% in coordination of care (as documented) at patient's floor/unit and/or counseling patient: less than 15 minutes - Subjective Interval history: Patient had no acute events overnight. He is non-verbal, but makes facial expressions. He does not look to be in any distress. - Constitutional Vitals: Temp Pulse Resp BP Pulse Ox 98.5 F 62 18 125/83 94 11/19/17 11:38 11/19/17 11:38 11/19/17 11:38 11/19/17 11:38 11/19/17 11:38 General appearance: Present: A&O X 0, no acute distress. Absent: cooperative, answers questions appropriately Exam: Non-verbal - Respiratory Respiratory exam: Present: CTAB. Absent: accessory muscle use, rales, rhonchi, wheezes Additional comments: Normal WOB - Cardiovascular Cardiovascular exam: Present: RRR, +S1, +S2. Absent: diastolic murmur, gallop, rubs, systolic murmur Additional comments: No BLE edema - GI/Abdominal GI/Abdominal exam: Present: normal bowel sounds, soft. Absent: distended, hepatomegaly, mass, splenomegaly, tenderness - Psychiatric Psychiatric exam: Present: normal affect, normal mood. Absent: agitated, anxious, depressed - Skin Skin exam: Present: dry, intact, warm. Absent: cyanosis, rash Internal Medicine: Result - Labs CBC & Chem 7: 11/16/17 02:52 11/18/17 01:17 Consult Discharge Plan - Plan Referrals: Hang Hollingsworth MD [Primary Care Provider] - (Patient is from [facility] no PCP appointment needed)
--- NOTE | 2017-11-19 16:26 | Electrocardiograph Report ---
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
--- NOTE | 2017-11-19 17:16 | Electrocardiograph Report ---
[place] [id number] Test Date: 2017-11-16 Pat Name: Heber Gomez Department: 112 Room: 2N15 Gender: M Internal Medicine Physician Assistant: KIARA : 1945 Requested By: Soy Olvera Order Number: [id number] Reading MD: Nieves Godinez Measurements Intervals [place] Rate: 87 P: 14 ND: 164 QRS: 12 QRSD: 93 T: 10 QT: 388 QTc: 433 Interpretive Statements SINUS RHYTHM WITH FREQUENT VENTRICULAR PREMATURE COMPLEXES WITH OCCASIONAL SUPRAVENTRICULAR PREMATURE COMPLEXES MINIMAL ST DEPRESSION ABNORMAL RHYTHM ECG Electronically Signed On 11-19-2017 17:15:01 EDT by Nieves Godinez
[2017-11-19] MEDS: Insulin DETEMIR 100 UNIT/ML X5UNITS SQ SCH (20:51)
[2017-11-20 05:04] LABS: Basophils % 0.3 %; Eosinophils # 0.2 K/mcL (0.0-0.6); Eosinophils % 2.4 %; Hematocrit 29.3 % (37.5-50.1); Immature Granulocytes % 0.3 % (0-4); Lymphocytes # 1.4 K/mcL (0.6-4.6); Lymphocytes % 22.6 %; Mean Corpuscular HGB Conc 33.1 g/dL (31.6-35.5); Mean Corpuscular Hemoglobin 28.8 pg (28.0-33.3); Mean Corpuscular Volume 86.9 fL (83.0-100.0); Mean Platelet Volume 10.4 fL (9.4-12.4); Monocytes # 0.3 K/mcL (0.0-1.3); Monocytes % 5.3 %; Neutrophils # 4.3 K/mcL (1.6-8.9); Platelet Count 186 K/mcL (140-400); Red Blood Count 3.37 M/mcL (4.19-5.50); Red Cell Distribution Width 14.5 % (11.5-14.5); Segmented Neutrophils % 69.1 %
[2017-11-20 05:07] LABS: Hemoglobin 9.7 g/dL (12.9-16.9)
[2017-11-20 05:23] LABS: Albumin 2.4 g/dL (3.5-5.7); Albumin/Globulin Ratio 1.1 (1.1-2.2); Bilirubin,Total 0.3 mg/dL (0.3-1.0); Globulin 2.2 g/dL (2.4-3.5); Potassium 4.3 mEq/L (3.5-5.1); Total Protein 4.6 g/dL (6.4-8.9)
[2017-11-20] MEDS: *HR* Heparin 5,000 UNIT/ML VIAL SQ SCH ×2 (06:33→20:13)
[2017-11-20] MEDS: Acetaminophen 325 MG TABLET PO PRN (06:33)
[2017-11-20] MEDS: Insulin LISPRO 300 UNITS/3 ML VIAL SQ SCH ×3 (07:31→17:49)
[2017-11-20] MEDS: NIFEdipine XL (24 HR) 30 MG TAB.ER.24 PO SCH ×2 (07:46→20:11)
[2017-11-20] MEDS: cloNIDine HCl 0.1 MG TABLET PO SCH ×3 (07:46→20:11)
[2017-11-20] MEDS ORDERED: 0.9 % Sodium Chloride 1,000 ML PRIME SCH (13:45)
[2017-11-20] MEDS ORDERED: 0.9 % Sodium Chloride 250 ML IVC PRN (13:45)
--- NOTE | 2017-11-20 13:53 | Nephrology Progress Note ---
Date of Encounter: 11/20/17 Time of Encounter: 13:15 - Assessment and Plan (1) End stage renal disease Current Visit: Yes Status: Chronic HD today to establish MWF schedule. Orders given.Arrangements being made for outpatient chronic dialysis. Subjective Interval history: Awake, talkative, watching tv. Objective - Vital Signs Vital signs: Vital Signs Temp Pulse Resp BP Pulse Ox 11/20/17 11:17 98.2 F 58 18 159/80 92 11/20/17 07:07 98.2 F 59 18 162/82 92 11/20/17 03:06 59 18 161/82 97 11/20/17 00:06 98.1 F 59 18 161/82 97 11/19/17 22:43 59 11/19/17 22:31 61 16 166/96 93 11/19/17 19:35 98.1 F 59 16 167/87 94 11/19/17 16:15 98.5 F 64 16 165/80 94 Intake and Output 11/19/17 11/20/17 11/20/17 23:59 07:59 15:59 Intake Total 240 / 240 400 / 400 930 / 930 Balance 240 / 240 400 / 400 930 / 930 Intake: Oral 240 / 240 400 / 400 930 / 930 Other: Meal Dinner Breakfast Percent of Meal Consumed 15% 100% # Urine Diapers 1 Weight 78.7 kg Blood Glucose* 161 127 157 Patient Weight 11/20/17 23:59 Weight 78.7 kg - General Appearance General appearance: Present: well-developed, well-nourished, appears started age EENT: Present: mucous membranes moist Neck: Present: no JVD Respiratory: Present: clear Cardiology: Present: edema, regular rate, regular rhythm Additional Comments: mild ankle Dialysis Vascular Access: Arteriovenous Fistula thrill: Yes bruit: Yes Gastrointestinal: Present: normoactive bowel sounds, no tenderness Integumentary: Present: warm and dry Psychiatric: Present: mood/affect appropriate, cooperative - Lab 11/20/17 04:21 11/20/17 04:21 Most recent lab results Calcium 8.0 mg/dL (8.6-10.3) L 11/20/17 04:21 Phosphorus 6.6 mg/dL (2.7-4.5) H 11/17/17 09:29 Consult Discharge Plan - Plan Referrals: Hang Hollingsworth MD [Primary Care Provider] - (Patient is from [facility] no PCP appointment needed)
--- NOTE | 2017-11-20 17:52 | Internal Med Progress Note ---
Date of Encounter: 11/20/17 Time of Encounter: 17:50 - Assessment and plan (1) Hypertensive emergency Current Visit: Yes Status: Acute Assessment and plan: BP mildly elevated today. Nephrology consulted; appreciate input in managing anti-hypertensives. Increase losartan to 50 mg QD. Continue clonidine and nifedipine XL. Continue hydralazine IV PRN. Monitor vitals closely. (2) End stage renal disease Current Visit: Yes Status: Chronic Assessment and plan: Nephrology consulted; appreciate input. Continue dialysis per schedule. Discharge pending setup of outpatient dialysis. (3) Dementia Current Visit: Yes Status: Chronic Assessment and plan: Continue home medications. Qualifiers: Dementia type: unspecified type Dementia behavioral disturbance: without behavioral disturbance Qualified Code(s): F03.90 - Unspecified dementia without behavioral disturbance (4) Bipolar disorder Current Visit: Yes Status: Chronic Assessment and plan: Continue home medications. Qualifiers: Active/Remission status: currently active Current bipolar episode type: mixed Current episode severity: moderate Qualified Code(s): F31.62 - Bipolar disorder, current episode mixed, moderate (5) DM type 2 (diabetes mellitus, type 2) Current Visit: Yes Status: Chronic Assessment and plan: Continue accuchecks and SSI QID AC/HS. Continue levemir. Qualifiers: Diabetes mellitus chcf insulin use: with inside sales agent use Diabetes mellitus complication status: without complication Qualified Code(s): E11.9 - Type 2 diabetes mellitus without complications; Z79.4 - media liaison officer (current) use of insulin (6) Schizophrenia, disorganized, chronic Current Visit: Yes Status: Chronic Assessment and plan: Continue home medications. (7) Debility Current Visit: Yes Status: Acute Assessment and plan: Consult PT/OT. (8) Edema of upper extremity Current Visit: Yes Status: Acute Assessment and plan: Obtain LUE doppler to rule out DVT. Start elevation of LUE. (9) DVT prophylaxis Current Visit: Yes Status: Acute Assessment and plan: Continue SQ heparin. - Time Spent With Patient Total time spent is greater than 50% in coordination of care (as documented) at patient's floor/unit and/or counseling patient: less than 15 minutes - Subjective Interval history: Patient had no acute events overnight. He is speaking to me today. He is alert and oriented. He states that he feels "weak." He denies chest pain, SOB , fever, chills, headache, nausea, vomiting, or abdominal pain. He has some swelling of LUE. He has no other complaints at this time. - Constitutional Vitals: Temp Pulse Resp BP Pulse Ox 98.9 F 58 18 182/81 92 11/20/17 15:10 11/20/17 11:17 11/20/17 15:10 11/20/17 16:10 11/20/17 11:17 General appearance: Present: cooperative, A&O X 3, pleasant, no acute distress, obese, answers questions appropriately - Respiratory Respiratory exam: Present: CTAB. Absent: accessory muscle use, rales, rhonchi, wheezes Additional comments: Normal WOB - Cardiovascular Cardiovascular exam: Present: RRR, +S1, +S2. Absent: diastolic murmur, gallop, rubs, systolic murmur Additional comments: No BLE or RUE edema, 1+ LUE edema - GI/Abdominal GI/Abdominal exam: Present: normal bowel sounds, soft. Absent: distended, hepatomegaly, mass, splenomegaly, tenderness - Psychiatric Psychiatric exam: Present: normal affect, normal mood. Absent: agitated, anxious, depressed - Skin Skin exam: Present: dry, intact, warm. Absent: cyanosis, rash Internal Medicine: Result - Labs CBC & Chem 7: 11/20/17 04:21 11/20/17 04:21 Labs: Short CBC 11/20/17 Range/Units 04:21 WBC 6.2 (4.3-11.1) K/mcL Hgb 9.7 L D (12.9-16.9) g/dL Hct 29.3 L (37.5-50.1) % Plt Count 186 (140-400) K/mcL Neutrophils # 4.3 (1.6-8.9) K/mcL BMP 11/20/17 04:21 Sodium 139 Potassium 4.3 Chloride 103 Carbon Dioxide 30 H BUN 45 H Creatinine 5.84 H Glucose 154 H Calcium 8.0 L Liver Function 11/20/17 Range/Units 04:21 Total Bilirubin 0.3 (0.3-1.0) mg/dL AST 9 L (13-39) Units/L ALT 8 (7-52) Units/L Alkaline Phosphatase 98 (34-104) Units/L Albumin 2.4 L (3.5-5.7) g/dL Consult Discharge Plan - Plan Referrals: Hang Hollingsworth MD [Primary Care Provider] - (Patient is from [facility] no PCP appointment needed)
[2017-11-20] MEDS: Insulin DETEMIR 100 UNIT/ML X5UNITS SQ SCH (20:12)
[2017-11-21 04:01] LABS: Basophils % 0.3 %; Eosinophils # 0.2 K/mcL (0.0-0.6); Eosinophils % 3.5 %; Hematocrit 27.7 % (37.5-50.1); Hemoglobin 9.1 g/dL (12.9-16.9); Immature Granulocytes % 0.3 % (0-4); Lymphocytes # 1.3 K/mcL (0.6-4.6); Lymphocytes % 22.3 %; Mean Corpuscular HGB Conc 32.9 g/dL (31.6-35.5); Mean Corpuscular Hemoglobin 28.2 pg (28.0-33.3); Mean Corpuscular Volume 85.8 fL (83.0-100.0); Mean Platelet Volume 10.6 fL (9.4-12.4); Monocytes # 0.4 K/mcL (0.0-1.3); Monocytes % 6.5 %; Platelet Count 152 K/mcL (140-400); Red Blood Count 3.23 M/mcL (4.19-5.50); Red Cell Distribution Width 14.2 % (11.5-14.5); Segmented Neutrophils % 67.1 %
[2017-11-21 04:20] LABS: Calcium 8.1 mg/dL (8.6-10.3); Potassium 3.8 mEq/L (3.5-5.1)
[2017-11-21] MEDS: *HR* Heparin 5,000 UNIT/ML VIAL SQ SCH ×2 (04:46→16:58)
[2017-11-21] MEDS ORDERED: *HR* Labetalol 20 MG/4 ML SYRINGE IVP ONE (06:44)
[2017-11-21] MEDS: cloNIDine HCl 0.1 MG TABLET PO SCH ×3 (07:34→20:56)
[2017-11-21] MEDS: NIFEdipine XL (24 HR) 30 MG TAB.ER.24 PO SCH ×2 (07:34→20:56)
[2017-11-21] MEDS: Insulin LISPRO 300 UNITS/3 ML VIAL SQ SCH ×3 (07:39→16:57)
--- NOTE | 2017-11-21 10:29 | Nephrology Progress Note ---
Date of Encounter: 11/21/17 Time of Encounter: 10:00 - Assessment and Plan (1) End stage renal disease Current Visit: Yes Status: Chronic No HD today establishing MWF schedule. Arrangements being made for outpatient chronic dialysis. Increased Losartan BID dosing. Subjective Interval history: Awake, talkative, watching tv. SBP 200. Nursing states had given PRN Hydralazine , initially SBP down to 179, now 195. Objective - Vital Signs Vital signs: Vital Signs Temp Pulse Resp BP Pulse Ox 11/21/17 09:52 195/92 11/21/17 09:18 172/84 11/21/17 08:15 200/92 11/21/17 07:28 98.9 F 63 14 217/85 94 11/21/17 07:03 68 207/88 11/21/17 05:14 65 2 11/21/17 04:40 179/87 11/21/17 00:56 98.0 F 53 18 175/80 96 11/20/17 21:23 98.7 F 59 16 93 11/20/17 19:27 98.7 F 61 16 93 11/20/17 18:30 99.1 F 17 191/90 11/20/17 18:10 191/88 11/20/17 17:55 184/90 11/20/17 17:40 186/89 11/20/17 17:25 189/86 11/20/17 17:10 170/87 11/20/17 16:55 184/91 11/20/17 16:40 185/80 11/20/17 16:25 176/83 11/20/17 16:10 182/81 11/20/17 15:55 181/82 11/20/17 15:40 180/78 11/20/17 15:25 184/87 11/20/17 15:10 98.9 F 18 185/95 11/20/17 11:17 98.2 F 58 18 159/80 92 Intake and Output 11/20/17 11/21/17 11/21/17 23:59 07:59 15:59 Intake Total 240 / 240 120 / 120 Output Total 600 / 600 Balance -360 / -360 120 / 120 Intake: Oral 240 / 240 120 / 120 Output: Urine 0 / 0 Total Dialysis (HD) Output 600 / 600 Other: Meal Dinner Breakfast Percent of Meal Consumed 10% 80% # Urine Diapers 1 Weight 62.3 kg Blood Glucose* 156 108 Hemodialysis Net Fluid Removed 0 (mL) Patient Weight 11/21/17 23:59 Weight 62.3 kg - General Appearance General appearance: Present: well-developed, well-nourished, appears started age EENT: Present: mucous membranes moist Neck: Present: no JVD Respiratory: Present: clear Cardiology: Present: no edema, regular rate, regular rhythm Dialysis Vascular Access: Arteriovenous Fistula thrill: Yes bruit: Yes Gastrointestinal: Present: normoactive bowel sounds, no tenderness Integumentary: Present: warm and dry Psychiatric: Present: mood/affect appropriate, cooperative - Lab 11/21/17 03:41 11/21/17 03:41 Most recent lab results Calcium 8.1 mg/dL (8.6-10.3) L 11/21/17 03:41 Phosphorus 6.6 mg/dL (2.7-4.5) H 11/17/17 09:29 Consult Discharge Plan - Plan Referrals: Hang Hollingsworth MD [Primary Care Provider] - (Patient is from [facility] no PCP appointment needed)
--- NOTE | 2017-11-21 16:00 | Discharge Summary ---
- NOTES TO OUTPATIENT PROVIDER Notes to Outpatient Provider: Follow up with ECF physician in 2-3 days after discharge. Recheck BP at that time and adjust BP medications as necessary. Recheck BMP and CBC at that time. Keep outpatient dialysis schedule. Follow up with nephrology as directed. Date of Encounter: 11/21/17 Time of Encounter: 15:58 - Discharge Diagnosis (1) Hypertensive emergency Priority: Primary Status: Resolved (2) End stage renal disease Priority: Secondary Status: Chronic (3) Dementia Priority: Secondary Status: Chronic Qualifiers: Dementia type: unspecified type Dementia behavioral disturbance: without behavioral disturbance Qualified Code(s): F03.90 - Unspecified dementia without behavioral disturbance (4) Bipolar disorder Priority: Secondary Status: Chronic Qualifiers: Active/Remission status: currently active Current bipolar episode type: mixed Current episode severity: moderate Qualified Code(s): F31.62 - Bipolar disorder, current episode mixed, moderate (5) DM type 2 (diabetes mellitus, type 2) Priority: Secondary Status: Chronic Qualifiers: Diabetes mellitus custodial insulin use: with custodial use Diabetes mellitus complication status: without complication Qualified Code(s): E11.9 - Type 2 diabetes mellitus without complications; Z79.4 - 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 Gomez is a 72 year old male admitted for hypertensive emergency and acute on chronic kidney disease. Patient was admitted to step down unit with telemetry. He was given IV hydralazine and IV labetalol, in addition to starting home BP medications. Nephrology was consulted. They initiated dialysis schedule. They adjusted home BP medications, including stopping amlodipine, lower clonidine to 0.3 mg TID, adding nifedipine XR 30 mg BID, and increasing losartan to 50 mg BID. Home cardura was also restarted. BP improved to systolic 170s at time of discharge. He has had some BP variation throughout the day, possibly due to rebound hypertension from clonidine. BP is stable for discharge; BP can be rechecked at follow up with SNF physician in 2- 3 days after discharge, and further adjustments to anti-hypertensives can be made at that time. Patient was initially non-verbal, but mental status improved with initiation of home psychiatric medications. Head CT showed no acute intracranial abnormalities. He had some mile LUE edema. LUE doppler showed superficial thrombosis. Edema improved somewhat with elevation of extremity. No indication for anticoagulation at this time. He states that he is doing well today. SW is working on making sure outpatient dialysis is set up. He will be discharged today pending confirmation of outpatient dialysis. He will follow up with nephrology as directed. Patient has met maximum benefit of this hospitalization and will be discharged to SNF in stable condition. Discharge discussed with: patient, nurse, case management, other (Pharmacist) - Time Spent with Patient Total time spent providing and/or coordinating discharge services: Greater than 30 minutes - Discharge Medications Prescriptions: cloNIDine HCl [CloNIDine HCl] 0.3 mg PO TID 4 Days #36 tablet Doxazosin [Cardura] 8 mg PO HS 4 Days #8 tablet Losartan [Cozaar] 50 mg PO BID 4 Days #16 tablet NIFEdipine XL (24 HR) [Procardia XL] 30 mg PO BID 4 Days #8 tab.er.24 Home Medications: Aspirin 81 mg PO QAM 02/19/15 [History] Trihexyphenidyl [Artane] 5 mg PO HS 02/19/15 [History] Furosemide [Lasix] 40 mg PO DAILY #2 tab 09/29/16 [Rx] Insulin Glargine,Hum.rec.anlog [Lantus Solostar] 15 unit SQ HS 04/25/17 [History ] Potassium Chloride [Klor-Con 10] 10 meq PO QID 04/25/17 [History] Ascorbate Calcium [Vitamin C] 500 mg PO DAILY 06/23/17 [History] Ferrous Sulfate [Iron] 325 mg PO DAILY 06/23/17 [History] Haloperidol [Haldol] 5 mg PO HS 06/23/17 [History] Folic Acid 0.4 mg PO DAILY 10/04/17 [History] Ondansetron ODT [Zofran ODT] 4 mg SL Q6HR PRN #12 tab.rapdis 10/04/17 [Rx] SitaGLIPtin [Januvia] 25 mg PO DAILY 11/15/17 [History] Tamsulosin [Flomax] 0.4 mg PO DAILY 11/15/17 [History] BuPROPion [Wellbutrin] 100 mg PO DAILY 11/16/17 [History] Simvastatin [Zocor] 20 mg PO HS 11/16/17 [History] Doxazosin [Cardura] 8 mg PO HS 4 Days #8 tablet 11/21/17 [Rx] Losartan [Cozaar] 50 mg PO BID 4 Days #16 tablet 11/21/17 [Rx] NIFEdipine XL (24 HR) [Procardia XL] 30 mg PO BID 4 Days #8 tab.er.24 11/21/17 [ Rx] cloNIDine HCl [CloNIDine HCl] 0.3 mg PO TID 4 Days #36 tablet 11/21/17 [Rx] Allergies/Adverse Reactions: 3 Allergy/AdvReac Type Severity Reaction Status Date / Time Penicillins [PCN] Allergy Anaphylaxis Verified 04/25/17 18:58 Thiopental [From Pentothal] Allergy Anaphylaxis Verified 04/25/17 18:58 furosemide AdvReac See Verified 04/25/17 18:58 Comments lisinopril AdvReac Cough Verified 04/25/17 18:58 Metolazone AdvReac See Verified 04/25/17 18:58 Comments Date of admission: 11/16/17 02:52 Primary care physician: Hang Hollingsworth MD Consults: 11/16/17 01:46 Consult to Nutrition [CONS] Routine Comment: CKD PROBABLE HD. HAS DM ALSO Consulting Provider: NUTRITION Reason for Dietary Consult: MST Score Consult to Oxidized Finish Plater [CONS] Routine Reason for SW Consult: FROM [facility]. PROBABLE NEW HD PT 11/16/17 02:39 Consult to Nephrology [CONS] Routine Consulting Provider: [facility] Reason for Consult: URGENT NEW HD-KNOWN TO YOU Call Completed: No 11/19/17 05:30 Consult to Dialysis [CONS] ONCE 11/20/17 14:00 Consult to Dialysis [CONS] ONCE 11/20/17 17:47 Consult to Occupational Therapy [CONS] Routine Comment: Evaluate, develop and implement POC Reason for Consult: Generalized Debility. Please evaluate, treat, and make rehab recommendations. Ready for discharge tomorrow; please see in AM. Does patient have active BEDREST order?: No Is patient medically & hemodynamically stable?: Yes Patient assessed for mobility or mobilized this visit?: No Consult to Physical Therapy [CONS] Routine Comment: Evaluate, develop and implement POC Reason for Consult: Generalized Debility. Please evaluate, treat, and make rehab recommendations. Ready for discharge tomorrow; please see in AM. Does patient have active BEDREST order?: No Is patient medically & hemodynamically stable?: Yes Patient assessed for mobility or mobilized this visit?: No 11/21/17 13:58 Consult to Oxidized Finish Plater [CONS] Stat Reason for SW Consult: Set up outpatient dialysis. Plan for discharge today. Discharging clinician: Erik Joseph Anticipated date of discharge: 11/21/17 - Constitutional Vitals: Temp Pulse Resp BP Pulse Ox 99 F 65 16 177/82 96 11/21/17 11:02 11/21/17 11:02 11/21/17 11:02 11/21/17 13:00 11/21/17 11:02 General appearance: Present: cooperative, A&O X 3, pleasant, no acute distress, obese, answers questions appropriately - Respiratory Respiratory exam: Present: CTAB. Absent: accessory muscle use, rales, rhonchi, wheezes Additional comments: Normal WOB - Cardiovascular Cardiovascular exam: Present: RRR, +S1, +S2. Absent: diastolic murmur, gallop, rubs, systolic murmur Additional comments: No BLE edema - GI/Abdominal GI/Abdominal exam: Present: normal bowel sounds, soft. Absent: distended, hepatomegaly, mass, splenomegaly, tenderness - Psychiatric Psychiatric exam: Present: normal affect, normal mood. Absent: agitated, anxious, depressed - Skin Skin exam: Present: dry, intact, warm. Absent: cyanosis, rash - Patient Status Disposition: Transfer SNF Condition: Good Overall status at discharge: patient is progressing back to baseline - Discharge Instructions Follow Up With: Hang Hollingsworth MD [Primary Care Provider] - (Patient is from ECF no PCP appointment needed) Additional Instructions: Follow up with ECF physician in 2-3 days after discharge. Recheck BP at that time and adjust BP medications as necessary. Recheck BMP and CBC at that time. Keep outpatient dialysis schedule. Follow up with nephrology as directed. - Diet and Activity Activity: as per physical therapy Diet: low fat, low cholesterol, low salt diet, other (Cardiac Diet, Mechanically Altered Diet Ground Meat, Vanilla Nepro at Dinner)
--- NOTE | 2017-11-21 16:34 | Physician Discharge Referral ---
ExtendedCare Referral Info Transfer To: [facility] Provider in Charge after Transfer: Other (SNF Physician) Institutional Level of Care: Skilled - Diagnosis (1) Hypertensive emergency Priority: Primary Status: Resolved (2) End stage renal disease Priority: Secondary Status: Chronic (3) Dementia Priority: Secondary Status: Chronic (4) Bipolar disorder Priority: Secondary Status: Chronic (5) DM type 2 (diabetes mellitus, type 2) Priority: Secondary Status: Chronic (6) Schizophrenia, disorganized, chronic Priority: Secondary Status: Chronic (7) Debility Priority: Secondary Status: Acute (8) Edema of upper extremity Priority: Secondary Status: Acute (9) DVT prophylaxis Priority: Secondary Status: Acute Expected Duration of Placement: Indefinitely Prognosis: Fair Aware of Diagnosis: Patient Aware of Prognosis: Patient - Transfer Medications Prescriptions: cloNIDine HCl [CloNIDine HCl] 0.3 mg PO TID 4 Days #36 tablet Doxazosin [Cardura] 8 mg PO HS 4 Days #8 tablet Losartan [Cozaar] 50 mg PO BID 4 Days #16 tablet NIFEdipine XL (24 HR) [Procardia XL] 30 mg PO BID 4 Days #8 tab.er.24 Home Medications: Aspirin 81 mg PO QAM 02/19/15 [History] Trihexyphenidyl [Artane] 5 mg PO HS 02/19/15 [History] Furosemide [Lasix] 40 mg PO DAILY #2 tab 09/29/16 [Rx] Insulin Glargine,Hum.rec.anlog [Lantus Solostar] 15 unit SQ HS 04/25/17 [History ] Potassium Chloride [Klor-Con 10] 10 meq PO QID 04/25/17 [History] Ascorbate Calcium [Vitamin C] 500 mg PO DAILY 06/23/17 [History] Ferrous Sulfate [Iron] 325 mg PO DAILY 06/23/17 [History] Haloperidol [Haldol] 5 mg PO HS 06/23/17 [History] Folic Acid 0.4 mg PO DAILY 10/04/17 [History] Ondansetron ODT [Zofran ODT] 4 mg SL Q6HR PRN #12 tab.rapdis 10/04/17 [Rx] SitaGLIPtin [Januvia] 25 mg PO DAILY 11/15/17 [History] Tamsulosin [Flomax] 0.4 mg PO DAILY 11/15/17 [History] BuPROPion [Wellbutrin] 100 mg PO DAILY 11/16/17 [History] Simvastatin [Zocor] 20 mg PO HS 11/16/17 [History] Doxazosin [Cardura] 8 mg PO HS 4 Days #8 tablet 11/21/17 [Rx] Losartan [Cozaar] 50 mg PO BID 4 Days #16 tablet 11/21/17 [Rx] NIFEdipine XL (24 HR) [Procardia XL] 30 mg PO BID 4 Days #8 tab.er.24 11/21/17 [ Rx] cloNIDine HCl [CloNIDine HCl] 0.3 mg PO TID 4 Days #36 tablet 11/21/17 [Rx] Allergies/Adverse Reactions: 3 Allergy/AdvReac Type Severity Reaction Status Date / Time Penicillins [PCN] Allergy Anaphylaxis Verified 04/25/17 18:58 Thiopental [From Pentothal] Allergy Anaphylaxis Verified 04/25/17 18:58 furosemide AdvReac See Verified 04/25/17 18:58 Comments lisinopril AdvReac Cough Verified 04/25/17 18:58 Metolazone AdvReac See Verified 04/25/17 18:58 Comments - Respiratory Orders None Smoking Cessation: Smoking cessation has been advised. For more information, call the [place] Tobacco Quit Line at 3-670-FHRB-NOW. - Lab Orders Lab Orders: CBC (in 2-3 days after discharge), Other (include drug levels w/ frequency) (BMP in 2-3 days after discharge) - Advance Directives Code Status: Full Code - Mobility Orders Other (Per physical therapy) - Rehabiliation Orders Rehab Potential: Fair Rehab Orders: Evaluation for Physical Therapy, Evaluation for Occupational Therapy - Diet Orders No Added Salt (SLADE), Renal, Cardiac (Mechanically Altered Ground Meat) House Supplement per Dietary: Vanilla Nepro at Dinner CERTIFICATION: I certify that the transfer of the above named patient to an Extended Care Facility is necessary for the continuing treatment of the diagnosis listed. The above information is true and accurate reflection of patient's current condition. Confidential - Redisclosure prohibited without a patient's written consent.
[2017-11-21] MEDS: Insulin DETEMIR 100 UNIT/ML X5UNITS SQ SCH (20:57)
[2017-11-22 03:22] LABS: Basophils % 0.2 %; Eosinophils # 0.2 K/mcL (0.0-0.6); Hematocrit 25.8 % (37.5-50.1); Hemoglobin 8.5 g/dL (12.9-16.9); Immature Granulocytes % 0.4 % (0-4); Lymphocytes # 1.5 K/mcL (0.6-4.6); Mean Corpuscular HGB Conc 32.9 g/dL (31.6-35.5); Mean Corpuscular Hemoglobin 28.1 pg (28.0-33.3); Mean Corpuscular Volume 85.1 fL (83.0-100.0); Mean Platelet Volume 10.8 fL (9.4-12.4); Monocytes # 0.4 K/mcL (0.0-1.3); Monocytes % 6.6 %; Neutrophils # 3.3 K/mcL (1.6-8.9); Platelet Count 143 K/mcL (140-400); Red Blood Count 3.03 M/mcL (4.19-5.50); Red Cell Distribution Width 14.5 % (11.5-14.5); Segmented Neutrophils % 61.8 %
[2017-11-22 03:39] LABS: Calcium 8.2 mg/dL (8.6-10.3); Potassium 3.7 mEq/L (3.5-5.1)
[2017-11-22] MEDS: *HR* Heparin 5,000 UNIT/ML VIAL SQ SCH (06:12)
--- NOTE | 2017-11-22 08:37 | Nephrology Progress Note ---
Date of Encounter: 11/22/17 Time of Encounter: 08:15 - Assessment and Plan (1) End stage renal disease Current Visit: Yes Status: Chronic HD today establishing MWF schedule. Arrangements being made for outpatient chronic dialysis. Subjective Interval history: Awake, talkative, watching tv. SBP 150-170. Objective - Vital Signs Vital signs: Vital Signs Temp Pulse Resp BP Pulse Ox 11/22/17 07:30 99.9 F H 76 18 171/73 98 11/22/17 06:00 67 165/64 11/22/17 04:00 68 151/55 11/22/17 03:45 69 11/22/17 03:38 98.8 F 71 18 179/73 94 11/22/17 03:00 71 179/73 11/22/17 02:00 61 169/78 11/22/17 01:00 61 157/73 11/22/17 00:00 60 155/75 11/21/17 23:46 99 F 59 16 171/78 94 11/21/17 23:45 65 11/21/17 19:49 98.4 F 60 18 183/75 96 11/21/17 19:30 63 11/21/17 16:56 171/72 11/21/17 16:19 98.3 F 60 18 192/82 97 11/21/17 13:00 177/82 11/21/17 11:11 181/83 11/21/17 11:02 99 F 65 16 200/93 96 11/21/17 09:52 195/92 11/21/17 09:18 172/84 Intake and Output 11/21/17 11/22/17 11/22/17 23:59 07:59 15:59 Intake Total 120 / 120 Balance 120 / 120 Intake: Oral 120 / 120 Other: # Urine Diapers 1 1 Weight 84.5 kg Blood Glucose* 130 128 Patient Weight 11/22/17 23:59 Weight 84.5 kg - General Appearance General appearance: Present: well-developed, well-nourished, appears started age EENT: Present: mucous membranes moist Neck: Present: no JVD Respiratory: Present: clear Cardiology: Present: no edema, regular rate, regular rhythm Dialysis Vascular Access: Arteriovenous Fistula thrill: Yes bruit: Yes Gastrointestinal: Present: normoactive bowel sounds, no tenderness Integumentary: Present: warm and dry Psychiatric: Present: mood/affect appropriate, cooperative - Lab 11/22/17 03:00 11/22/17 03:00 Most recent lab results Calcium 8.2 mg/dL (8.6-10.3) L 11/22/17 03:00 Phosphorus 6.6 mg/dL (2.7-4.5) H 11/17/17 09:29 - VTE Documentation of Mechanical Device: Intermittent pneumatic compression device Consult Discharge Plan - Plan Additional Instructions: Follow up with F physician in 2-3 days after discharge. Recheck BP at that time and adjust BP medications as necessary. Recheck BMP and CBC at that time. Keep outpatient dialysis schedule. Follow up with nephrology as directed. Referrals: Hang Hollingsworth MD [Primary Care Provider] - (Patient is from [facility] no PCP appointment needed) Prescriptions: cloNIDine HCl [CloNIDine HCl] 0.3 mg PO TID 4 Days #36 tablet Doxazosin [Cardura] 8 mg PO HS 4 Days #8 tablet Losartan [Cozaar] 50 mg PO BID 4 Days #16 tablet NIFEdipine XL (24 HR) [Procardia XL] 30 mg PO BID 4 Days #8 tab.er.24
[2017-11-22] MEDS: Insulin LISPRO 300 UNITS/3 ML VIAL SQ SCH ×2 (08:56→13:47)
[2017-11-22] MEDS ORDERED: Ascorbic Acid 500 MG TABLET PO SCH (09:00)
[2017-11-22] MEDS ORDERED: Folic Acid 1 MG TABLET PO SCH (09:00)
[2017-11-22] MEDS: NIFEdipine XL (24 HR) 30 MG TAB.ER.24 PO SCH (09:06)
[2017-11-22] MEDS: cloNIDine HCl 0.1 MG TABLET PO SCH ×2 (09:07→16:43)
[2017-11-22] MEDS ORDERED: 0.9 % Sodium Chloride 250 ML IVC PRN (09:20)
[2017-11-22] MEDS ORDERED: 0.9 % Sodium Chloride 1,000 ML PRIME SCH (09:30)
[2017-11-22 15:08] VITALS: BP 164/76
--- NOTE | 2017-11-22 15:35 | Internal Med Progress Note ---
Date of Encounter: 11/22/17 Time of Encounter: 15:20 - Assessment and plan (1) Hypertensive emergency Current Visit: Yes Status: Resolved Assessment and plan: BP improved to systolic 150-160s today. Continue anti-hypertensives. Discharge today to [facility]. Follow up with ECF physician in 1-2 days with BP check. (2) End stage renal disease Current Visit: Yes Status: Chronic Assessment and plan: Follow up with nephrology as directed. Continue dialysis per schedule starting on Saturday. (3) Dementia Current Visit: Yes Status: Chronic Assessment and plan: Continue home medications. Qualifiers: Dementia type: unspecified type Dementia behavioral disturbance: without behavioral disturbance Qualified Code(s): F03.90 - Unspecified dementia without behavioral disturbance (4) Bipolar disorder Current Visit: Yes Status: Chronic Assessment and plan: Continue home medications. Qualifiers: Active/Remission status: currently active Current bipolar episode type: mixed Current episode severity: moderate Qualified Code(s): F31.62 - Bipolar disorder, current episode mixed, moderate (5) DM type 2 (diabetes mellitus, type 2) Current Visit: Yes Status: Chronic Assessment and plan: Continue accuchecks and home medications. 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 (7) Debility Current Visit: Yes Status: Acute Assessment and plan: Continue PT/OT at [facility]. (8) Edema of upper extremity Current Visit: Yes Status: Acute Assessment and plan: Superficial LUE thrombosis. Improved. Continue LUE elevation. (9) DVT prophylaxis Current Visit: Yes Status: Acute Assessment and plan: Continue SQ heparin until discharge. - Time Spent With Patient Total time spent is greater than 50% in coordination of care (as documented) at patient's floor/unit and/or counseling patient: less than 15 minutes - Subjective Interval history: Patient had no acute events overnight. He had dialysis today. He states that he feels "good." He denies chest pain, SOB, fever, chills, headache, nausea, vomiting, or abdominal pain. Swelling of LUE is slightly improved. He has no other complaints at this time. - Constitutional Vitals: Temp Pulse Resp BP Pulse Ox 99.1 F 70 18 164/76 97 11/22/17 15:05 11/22/17 15:05 11/22/17 15:05 11/22/17 15:05 11/22/17 15:05 General appearance: Present: cooperative, pleasant, no acute distress, answers questions appropriately - Respiratory Respiratory exam: Present: CTAB. Absent: accessory muscle use, rales, rhonchi, wheezes Additional comments: Normal WOB - Cardiovascular Cardiovascular exam: Present: RRR, +S1, +S2. Absent: diastolic murmur, gallop, rubs, systolic murmur Additional comments: Trace LUE edema, no RUE and BLE edema - GI/Abdominal GI/Abdominal exam: Present: normal bowel sounds, soft. Absent: distended, hepatomegaly, mass, splenomegaly, tenderness - Psychiatric Psychiatric exam: Present: normal affect, normal mood. Absent: agitated, anxious, depressed - Skin Skin exam: Present: dry, intact, warm. Absent: cyanosis, rash Internal Medicine: Result - Labs CBC & Chem 7: 11/22/17 03:00 11/22/17 03:00 Labs: Short CBC 11/22/17 Range/Units 03:00 WBC 5.3 (4.3-11.1) K/mcL Hgb 8.5 L (12.9-16.9) g/dL Hct 25.8 L (37.5-50.1) % Plt Count 143 (140-400) K/mcL Neutrophils # 3.3 (1.6-8.9) K/mcL BMP 11/22/17 03:00 Sodium 140 Potassium 3.7 Chloride 106 Carbon Dioxide 27 BUN 43 H Creatinine 5.50 H Glucose 110 H Calcium 8.2 L Consult Discharge Plan - Plan Additional Instructions: Follow up with ECF physician in 2-3 days after discharge. Recheck BP at that time and adjust BP medications as necessary. Recheck BMP and CBC at that time. Keep outpatient dialysis schedule. Follow up with nephrology as directed. Referrals: Hang Hollingsworth MD [Primary Care Provider] - (Patient is from [facility] no PCP appointment needed) Prescriptions: cloNIDine HCl [CloNIDine HCl] 0.3 mg PO TID 4 Days #36 tablet Doxazosin [Cardura] 8 mg PO HS 4 Days #8 tablet Losartan [Cozaar] 50 mg PO BID 4 Days #16 tablet NIFEdipine XL (24 HR) [Procardia XL] 30 mg PO BID 4 Days #8 tab.er.24
== END 2017-11-22 17:08 | DRG 304 ==
LOC: 2ANU → SUATTDRO 11-16 02:52 → 2NNU 11-16 10:01 → 2ANU 11-22 15:03
PROVIDERS: ADMIT Internal Medicine; ATTEND Internal Medicine

== ENCOUNTER 2018-07-01 14:52 | Inpatient (IN) ==
--- NOTE | 2018-07-01 15:08 | Emergency Department Note ---
Disposition Clinical Impression: History of schizophrenia, Elevated troponin, Confusion, Diabetes, Renal failure, Anemia, Hypertension Disposition: Admitted As Inpatient Referrals: NONE,PCP [Primary Care Provider] - General Adult HPI - General Stated complaint: AMS Time Seen by Provider: 07/01/18 15:07 - History of Present Illness HPI Narrative: Initial information obtained, 73-year-old male brought in by EMS at the behest of his psychiatric counselor regarding confusion. Per report the patient is a resident of a [facility] who was going to a psychiatric appointment, the patient was apparently weak and confused so a call was made to EMS to bring the patient to the emergency department. There is no history of fall injury or trauma. Per EMS reports the patient may have been medicated prior to being transported to his psychiatric appointment perhaps with a sedating medication but there is no definitive history. There is no history of seizure-like activity or unilateral arm or leg weakness or numbness. There is no history of skin rash fever or chest pain shortness of breath or abdominal pain. The patient is unable to give a clear history. The patient was brought in for assessment regarding weakness/confusion. The patient is known to be diabetic, has a history of renal failure and dementia. Per reports the patient is usually very combative and is now sedate. Glucose checked by EMS, no hypoglycemia reported. The patient has a history of schizophrenia, per report he was evaluated at [facility] ED last night and sent home regarding psychiatric issues. long term providers reports that the patient will not respond if he is having exacerbation of psychiatric disease. The patient reportedly had to have an extra dose of Haldol on Saturday secondary to increased agitation. long term providers report the patient has not been his usual self. He is a dialysis patient and had dialysis yesterday. Additional information obtained from her relative, the patient was evaluated for medical purposes last night and this emergency department and was cleared. Subsequently he went to the [facility] emergency department for psychiatric issues and was going to be placed in a psychiatric unit but was discharged because the [facility] charter representative would not come to the emergency Department per report. Additional history indicates the patient was sent back to this emergency Department for psychiatric evaluation and placement. - Related Data Home Medications Medication Instructions Recorded Confirmed Trihexyphenidyl [Artane] 5 mg PO HS 02/19/15 02/19/18 Insulin Glargine,Hum.rec.anlog 15 unit SQ HS 04/25/17 02/19/18 [Lantus Solostar] Potassium Chloride [Klor-Con 10] 10 meq PO QID 04/25/17 12/02/17 Ascorbate Calcium [Vitamin C] 500 mg PO DAILY 06/23/17 02/19/18 Haloperidol [Haldol] 5 mg PO HS 06/23/17 02/19/18 Folic Acid 0.4 mg PO DAILY 10/04/17 02/19/18 Tamsulosin [Flomax] 0.4 mg PO DAILY 11/15/17 06/30/18 BuPROPion [Wellbutrin] 100 mg PO DAILY 11/16/17 02/19/18 Sevelamer HCl [Renagel] 2,400 mg PO TID 02/19/18 02/19/18 Klor Con 1 PO BID 06/30/18 Linagliptin [Tradjenta] 5 mg PO DAILY 06/30/18 06/30/18 Losartan Potassium [Cozaar] 50 mg PO DAILY 06/30/18 06/30/18 Melatonin 5 mg PO HS 06/30/18 06/30/18 Simvastatin [Zocor] 20 mg PO HS 06/30/18 06/30/18 Trihexphenldyl 2 PO DAILY 06/30/18 amLODIPine [Norvasc] 10 mg PO 06/30/18 Previous Rx's Medication Instructions Recorded Furosemide [Lasix] 40 mg PO DAILY #2 tab 09/29/16 Ondansetron ODT [Zofran ODT] 4 mg SL Q6HR PRN #12 tab.rapdis 10/04/17 Losartan [Cozaar] 50 mg PO BID 4 Days #16 tablet 11/21/17 NIFEdipine XL (24 HR) [Procardia 30 mg PO BID 4 Days #8 tab.er.24 11/21/17 XL] cloNIDine HCl [CloNIDine HCl] 0.3 mg PO TID 4 Days #36 tablet 11/21/17 Aspirin 81 mg PO Q48H #0 12/03/17 Allergies Allergy/AdvReac Type Severity Reaction Status Date / Time Penicillins [PCN] Allergy Anaphylaxis Verified 04/25/17 18:58 Thiopental [From Pentothal] Allergy Anaphylaxis Verified 04/25/17 18:58 furosemide AdvReac See Verified 04/25/17 18:58 Comments lisinopril AdvReac Cough Verified 04/25/17 18:58 Metolazone AdvReac See Verified 04/25/17 18:58 Comments Limitations: ROS unobtainable due to patients medical condition Past Medical History - Past Medical History Medical history: Reports: arthritis, asthma, CHF, dementia, diabetes, dialysis, hyperlipidemia, hypertension, renal disease Surgical history: Reports: vascular surgery (Dialysis shunt), other Psychiatric history: Reports: bipolar, schizophrenia, other - Social History Smoking Status: Former smoker Smokeless Tobacco Status: No Alcohol use: Reports: unknown Drug use: Reports: unknown Physical Exam - General Limitations: altered mental status General appearance: other (The patient does not answer questions properly, he appears to be confused.) - Head Head exam: atraumatic, normocephalic, normal inspection - Eye Eye exam: Present: miosis - ENT ENT exam: normal exam, normal oropharynx, mucous membranes moist, TM's normal bilaterally, normal external ear exam - Neck Neck exam: Present: normal inspection, full ROM, trachea midline - Chest Chest inspection: Present: symmetric chest wall rise. Absent: tenderness - Respiratory Respiratory exam: Present: normal lung sounds bilaterally. Absent: respiratory distress, prolonged expiratory phase - Cardiovascular Cardiovascular exam: Present: regular rate, normal rhythm, normal heart sounds - Abdominal Exam Abdominal exam: Present: soft, Non-Tender, normal bowel sounds. Absent: tenderness, distention, guarding, rebound, rigidity, trauma - Extremities Exam Extremities exam: Present: normal inspection, full ROM, normal capillary refill. Absent: tenderness, pedal edema, joint swelling, calf tenderness - Expanded Lower Extremity Exam Neurovascular/Tendon exam: Present: normal capillary refill. Absent: motor deficit, sensory deficit, tendon deficit, extremity cold to touch, pallor - Back Exam Back exam: Present: normal inspection, full ROM. Absent: tenderness, CVA tenderness (R), CVA tenderness (L), vertebral tenderness - Neurological Exam Neurological exam: Present: other (The patient displays good neurologic tone in all 4 extremities and spontaneously moves his arms and legs, cranial nerves II through are grossly intact. No overt focal defects are noted on gross exam.) - Psychiatric Psychiatric exam: Present: flat affect - Skin Skin exam: Present: warm, dry, intact, normal color Course Vital Signs Temperature 98.5 F 07/01/18 15:00 Pulse Rate 91 07/01/18 15:00 Respiratory Rate 19 07/01/18 15:00 Blood Pressure 191/94 07/01/18 15:00 O2 Sat by Pulse Oximetry 97 07/01/18 15:00 Temperature 98.5 F 07/01/18 15:00 Pulse Rate 88 07/01/18 18:14 Respiratory Rate 17 07/01/18 18:14 Blood Pressure 188/102 07/01/18 18:14 O2 Sat by Pulse Oximetry 100 07/01/18 18:14 Oxygen Delivery Oxygen Delivery Room Air Medical Decision Making - MDM Narrative Medical decision making narrative: Based on the history I can obtain, the patient was reportedly seen last night in the emergency department and cleared from a medical perspective, he went to [facility] emergency department and was determined to have psychiatric disease, they were trying to have the patient placed in a psychiatric facility but reportedly [facility] staffed were unavailable for consultation. The patient was sent back to this emergency Department for confusion and family report the patient may just have an element of malingering secondary psychiatric disease. In the emergency department the patient was not responding to commands but later stood up and was walking around. He did not answer questions properly but would follow commands. Radiographic studies EKG and laboratory studies reviewed. The patient's troponin is slightly elevated and trended up. Aspirin was ordered. His blood pressure has been elevated in the emergency department he has a history of hypertension. Based on the patient's third visit to an emergency department in 24 hours, elevated troponin, hypertension, reported confusion, and known psychiatric disease, I thought it would be appropriate to admit the patient to the hospital. Secondary psychiatric consult once deemed medically cleared. I discussed the case with the hospitalist on-call who has accepted the patient to their care. The patient is currently stable pending admission. - Lab Data Lab results reviewed: Yes I reviewed the patient's lab results. Result diagrams: 07/01/18 15:33 07/01/18 15:33 Lab Results 07/01/18 07/01/18 07/01/18 Range/Units 15:33 15:33 15:33 WBC 6.2 (4.3-11.1) K/mcL RBC 3.99 L (4.19-5.50) M/mcL Hgb 11.9 L (12.9-16.9) g/dL Hct 37.6 (37.5-50.1) % MCV 94.2 (83.0-100.0) fL MCH 29.8 (28.0-33.3) pg MCHC 31.6 (31.6-35.5) g/dL RDW 13.3 (11.5-14.5) % Plt Count 180 (140-400) K/mcL MPV 10.3 (9.4-12.4) fL Immature Gran % 0.3 (0-4) % Seg Neutrophils % 72.8 % Lymphocytes % 17.4 % Monocytes % 6.3 % Eosinophils % 2.6 % Basophils % 0.6 % Neutrophils # 4.5 (1.6-8.9) K/mcL Lymphocytes # 1.1 (0.6-4.6) K/mcL Monocytes # 0.4 (0.0-1.3) K/mcL Eosinophils # 0.2 (0.0-0.6) K/mcL Basophils # 0.0 (0.0-0.2) K/mcL PT 11.3 (9.4-12.1) Seconds INR 1.0 APTT 32.2 (26.0-36.0) Seconds Sodium 138 (136-145) mEq/L Potassium 4.4 (3.5-5.1) mEq/L Chloride 103 (98-107) mEq/L Carbon Dioxide 26 (23-29) mEq/L BUN 30 H (8-23) mg/dL Creatinine 4.77 H (0.70-1.30) mg/dL Est GFR ( Amer) 15 L (> 60) Est GFR (Non-Af Amer) 12 L (> 60) BUN/Creatinine Ratio 6 (6-26) Glucose 116 H (70-105) mg/dL POC Glucose (70-99) mg/dL Calculated Osmolality 293 (280-300) Calcium 8.6 (8.6-10.3) mg/dL Total Bilirubin 0.6 (0.3-1.0) mg/dL Direct Bilirubin 0.2 (0.0-0.2) mg/dL Indirect Bilirubin 0.4 (0.0-1.2) mg/dL AST 12 L (13-39) Units/L ALT 9 (7-52) Units/L Alkaline Phosphatase 102 (34-104) Units/L Ammonia (16-53) mcmol/L Troponin I 0.04 H* (< 0.04) ng/mL B-Natriuretic Peptide (Less than 100) pg/mL Serum Total Protein 5.9 L (6.4-8.9) g/dL Albumin 3.5 (3.5-5.7) g/dL Globulin 2.4 (2.4-3.5) g/dL Albumin/Globulin Ratio 1.5 (1.1-2.2) TSH (0.340-5.600) mcIU/mL Urine Color (Yellow) Urine Clarity (Clear) Urine pH (5.0-8.0) pH Units Ur Specific [place] (1.010-1.025) Urine Protein (Neg-Trace) mg/dL Urine Glucose (UA) (Normal) mg/dL Urine Ketones (Negative) mg/dL Urine Blood (Negative) Urine Nitrite (Negative) Urine Bilirubin (Negative) Urine Urobilinogen (Normal) mg/dL Ur Leukocyte Esterase (Negative) Urine Microscopic RBC (0-3) per hpf Urine Microscopic WBC (0-3) per hpf Ur Squamous Epith Cells (None-Few) per lpf Urine Bacteria (None-Few) per hpf Ur Culture Indicated? (NO) Salicylates (15.0-30.0) mg/dL Urine Opiates Screen (Gnkgnm=394) ng/mL Acetaminophen (10-20) mcg/mL Ur Barbiturates Screen (Sjyjvq=132) ng/mL Ur Phencyclidine Scrn (Cutoff=25) ng/mL Ur Amphetamines Screen (Stcixd=1232) ng/mL U Benzodiazepines Scrn (Lurvjq=457) ng/mL Urine Cocaine Screen (Cutoff= 300) ng/mL U Marijuana (THC) Screen (Cutoff = 50) ng/mL Ur Drug Screen Interp Ethyl Alcohol < 10 (Less than 10) mg/dL 07/01/18 07/01/18 07/01/18 Range/Units 15:33 15:33 15:33 WBC (4.3-11.1) K/mcL RBC (4.19-5.50) M/mcL Hgb (12.9-16.9) g/dL Hct (37.5-50.1) % MCV (83.0-100.0) fL MCH (28.0-33.3) pg MCHC (31.6-35.5) g/dL RDW (11.5-14.5) % Plt Count (140-400) K/mcL MPV (9.4-12.4) fL Immature Gran % (0-4) % Seg Neutrophils % % Lymphocytes % % Monocytes % % Eosinophils % % Basophils % % Neutrophils # (1.6-8.9) K/mcL Lymphocytes # (0.6-4.6) K/mcL Monocytes # (0.0-1.3) K/mcL Eosinophils # (0.0-0.6) K/mcL Basophils # (0.0-0.2) K/mcL PT (9.4-12.1) Seconds INR APTT (26.0-36.0) Seconds Sodium (136-145) mEq/L Potassium (3.5-5.1) mEq/L Chloride (98-107) mEq/L Carbon Dioxide (23-29) mEq/L BUN (8-23) mg/dL Creatinine (0.70-1.30) mg/dL Est GFR ( Amer) (> 60) Est GFR (Non-Af Amer) (> 60) BUN/Creatinine Ratio (6-26) Glucose (70-105) mg/dL POC Glucose (70-99) mg/dL Calculated Osmolality (280-300) Calcium (8.6-10.3) mg/dL Total Bilirubin (0.3-1.0) mg/dL Direct Bilirubin (0.0-0.2) mg/dL Indirect Bilirubin (0.0-1.2) mg/dL AST (13-39) Units/L ALT (7-52) Units/L Alkaline Phosphatase (34-104) Units/L Ammonia 38 (16-53) mcmol/L Troponin I (< 0.04) ng/mL B-Natriuretic Peptide 1310 H (Less than 100) pg/mL Serum Total Protein (6.4-8.9) g/dL Albumin (3.5-5.7) g/dL Globulin (2.4-3.5) g/dL Albumin/Globulin Ratio (1.1-2.2) TSH 1.546 (0.340-5.600) mcIU/mL Urine Color (Yellow) Urine Clarity (Clear) Urine pH (5.0-8.0) pH Units Ur Specific [place] (1.010-1.025) Urine Protein (Neg-Trace) mg/dL Urine Glucose (UA) (Normal) mg/dL Urine Ketones (Negative) mg/dL Urine Blood (Negative) Urine Nitrite (Negative) Urine Bilirubin (Negative) Urine Urobilinogen (Normal) mg/dL Ur Leukocyte Esterase (Negative) Urine Microscopic RBC (0-3) per hpf Urine Microscopic WBC (0-3) per hpf Ur Squamous Epith Cells (None-Few) per lpf Urine Bacteria (None-Few) per hpf Ur Culture Indicated? (NO) Salicylates (15.0-30.0) mg/dL Urine Opiates Screen (Dirdga=413) ng/mL Acetaminophen (10-20) mcg/mL Ur Barbiturates Screen (Wufqjt=779) ng/mL Ur Phencyclidine Scrn (Cutoff=25) ng/mL Ur Amphetamines Screen (Stqjzf=4018) ng/mL U Benzodiazepines Scrn (Iqvgve=455) ng/mL Urine Cocaine Screen (Cutoff= 300) ng/mL U Marijuana (THC) Screen (Cutoff = 50) ng/mL Ur Drug Screen Interp Ethyl Alcohol (Less than 10) mg/dL 07/01/18 07/01/18 07/01/18 Range/Units 16:11 16:56 16:56 WBC (4.3-11.1) K/mcL RBC (4.19-5.50) M/mcL Hgb (12.9-16.9) g/dL Hct (37.5-50.1) % MCV (83.0-100.0) fL MCH (28.0-33.3) pg MCHC (31.6-35.5) g/dL RDW (11.5-14.5) % Plt Count (140-400) K/mcL MPV (9.4-12.4) fL Immature Gran % (0-4) % Seg Neutrophils % % Lymphocytes % % Monocytes % % Eosinophils % % Basophils % % Neutrophils # (1.6-8.9) K/mcL Lymphocytes # (0.6-4.6) K/mcL Monocytes # (0.0-1.3) K/mcL Eosinophils # (0.0-0.6) K/mcL Basophils # (0.0-0.2) K/mcL PT (9.4-12.1) Seconds INR APTT (26.0-36.0) Seconds Sodium (136-145) mEq/L Potassium (3.5-5.1) mEq/L Chloride (98-107) mEq/L Carbon Dioxide (23-29) mEq/L BUN (8-23) mg/dL Creatinine (0.70-1.30) mg/dL Est GFR ( Amer) (> 60) Est GFR (Non-Af Amer) (> 60) BUN/Creatinine Ratio (6-26) Glucose (70-105) mg/dL POC Glucose 191 H (70-99) mg/dL Calculated Osmolality (280-300) Calcium (8.6-10.3) mg/dL Total Bilirubin (0.3-1.0) mg/dL Direct Bilirubin (0.0-0.2) mg/dL Indirect Bilirubin (0.0-1.2) mg/dL AST (13-39) Units/L ALT (7-52) Units/L Alkaline Phosphatase (34-104) Units/L Ammonia (16-53) mcmol/L Troponin I (< 0.04) ng/mL B-Natriuretic Peptide (Less than 100) pg/mL Serum Total Protein (6.4-8.9) g/dL Albumin (3.5-5.7) g/dL Globulin (2.4-3.5) g/dL Albumin/Globulin Ratio (1.1-2.2) TSH (0.340-5.600) mcIU/mL Urine Color Yellow (Yellow) Urine Clarity Clear (Clear) Urine pH 7.5 (5.0-8.0) pH Units Ur Specific [place] 1.007 L (1.010-1.025) Urine Protein >=300 H (Neg-Trace) mg/dL Urine Glucose (UA) Normal (Normal) mg/dL Urine Ketones Trace H (Negative) mg/dL Urine Blood Negative (Negative) Urine Nitrite Negative (Negative) Urine Bilirubin Negative (Negative) Urine Urobilinogen Normal (Normal) mg/dL Ur Leukocyte Esterase Negative (Negative) Urine Microscopic RBC 0-3 (0-3) per hpf Urine Microscopic WBC 0-3 (0-3) per hpf Ur Squamous Epith Cells Many H (None-Few) per lpf Urine Bacteria None Seen (None-Few) per hpf Ur Culture Indicated? NO (NO) Salicylates (15.0-30.0) mg/dL Urine Opiates Screen Negative (Excchf=155) ng/mL Acetaminophen (10-20) mcg/mL Ur Barbiturates Screen Negative (Rlfzyq=454) ng/mL Ur Phencyclidine Scrn Negative (Cutoff=25) ng/mL Ur Amphetamines Screen Negative (Ckrtlg=2206) ng/mL U Benzodiazepines Scrn Negative (Hgjdrg=188) ng/mL Urine Cocaine Screen Negative (Cutoff= 300) ng/mL U Marijuana (THC) Screen Negative (Cutoff = 50) ng/mL Ur Drug Screen Interp See Below Ethyl Alcohol (Less than 10) mg/dL 07/01/18 Range/Units 18:37 WBC (4.3-11.1) K/mcL RBC (4.19-5.50) M/mcL Hgb (12.9-16.9) g/dL Hct (37.5-50.1) % MCV (83.0-100.0) fL MCH (28.0-33.3) pg MCHC (31.6-35.5) g/dL RDW (11.5-14.5) % Plt Count (140-400) K/mcL MPV (9.4-12.4) fL Immature Gran % (0-4) % Seg Neutrophils % % Lymphocytes % % Monocytes % % Eosinophils % % Basophils % % Neutrophils # (1.6-8.9) K/mcL Lymphocytes # (0.6-4.6) K/mcL Monocytes # (0.0-1.3) K/mcL Eosinophils # (0.0-0.6) K/mcL Basophils # (0.0-0.2) K/mcL PT (9.4-12.1) Seconds INR APTT (26.0-36.0) Seconds Sodium (136-145) mEq/L Potassium (3.5-5.1) mEq/L Chloride (98-107) mEq/L Carbon Dioxide (23-29) mEq/L BUN (8-23) mg/dL Creatinine (0.70-1.30) mg/dL Est GFR ( Amer) (> 60) Est GFR (Non-Af Amer) (> 60) BUN/Creatinine Ratio (6-26) Glucose (70-105) mg/dL POC Glucose (70-99) mg/dL Calculated Osmolality (280-300) Calcium (8.6-10.3) mg/dL Total Bilirubin (0.3-1.0) mg/dL Direct Bilirubin (0.0-0.2) mg/dL Indirect Bilirubin (0.0-1.2) mg/dL AST (13-39) Units/L ALT (7-52) Units/L Alkaline Phosphatase (34-104) Units/L Ammonia (16-53) mcmol/L Troponin I 0.05 H* (< 0.04) ng/mL B-Natriuretic Peptide (Less than 100) pg/mL Serum Total Protein (6.4-8.9) g/dL Albumin (3.5-5.7) g/dL Globulin (2.4-3.5) g/dL Albumin/Globulin Ratio (1.1-2.2) TSH (0.340-5.600) mcIU/mL Urine Color (Yellow) Urine Clarity (Clear) Urine pH (5.0-8.0) pH Units Ur Specific [place] (1.010-1.025) Urine Protein (Neg-Trace) mg/dL Urine Glucose (UA) (Normal) mg/dL Urine Ketones (Negative) mg/dL Urine Blood (Negative) Urine Nitrite (Negative) Urine Bilirubin (Negative) Urine Urobilinogen (Normal) mg/dL Ur Leukocyte Esterase (Negative) Urine Microscopic RBC (0-3) per hpf Urine Microscopic WBC (0-3) per hpf Ur Squamous Epith Cells (None-Few) per lpf Urine Bacteria (None-Few) per hpf Ur Culture Indicated? (NO) Salicylates < 2.5 L (15.0-30.0) mg/dL Urine Opiates Screen (Emdoav=477) ng/mL Acetaminophen < 10 L (10-20) mcg/mL Ur Barbiturates Screen (Hrfaiy=040) ng/mL Ur Phencyclidine Scrn (Cutoff=25) ng/mL Ur Amphetamines Screen (Zpdimq=4329) ng/mL U Benzodiazepines Scrn (Avcwcy=840) ng/mL Urine Cocaine Screen (Cutoff= 300) ng/mL U Marijuana (THC) Screen (Cutoff = 50) ng/mL Ur Drug Screen Interp Ethyl Alcohol (Less than 10) mg/dL - Radiology Data Radiology results reviewed: Yes I reviewed the patient's radiology results.
[2018-07-01 15:44] LABS: Basophils % 0.6 %; Eosinophils # 0.2 K/mcL (0.0-0.6); Eosinophils % 2.6 %; Hematocrit 37.6 % (37.5-50.1); Hemoglobin 11.9 g/dL (12.9-16.9); Immature Granulocytes % 0.3 % (0-4); Lymphocytes # 1.1 K/mcL (0.6-4.6); Lymphocytes % 17.4 %; Mean Corpuscular HGB Conc 31.6 g/dL (31.6-35.5); Mean Corpuscular Hemoglobin 29.8 pg (28.0-33.3); Mean Corpuscular Volume 94.2 fL (83.0-100.0); Mean Platelet Volume 10.3 fL (9.4-12.4); Monocytes # 0.4 K/mcL (0.0-1.3); Monocytes % 6.3 %; Neutrophils # 4.5 K/mcL (1.6-8.9); Platelet Count 180 K/mcL (140-400); Red Blood Count 3.99 M/mcL (4.19-5.50); Red Cell Distribution Width 13.3 % (11.5-14.5); Segmented Neutrophils % 72.8 %
[2018-07-01 15:55] LABS: Prothrombin Time 11.3 Seconds (9.4-12.1)
[2018-07-01 15:58] LABS: Activated Partial Thrombo Time 32.2 Seconds (26.0-36.0)
[2018-07-01 17:10] LABS: Alanine Aminotransferase 9 Units/L (7-52); Albumin 3.5 g/dL (3.5-5.7); Albumin/Globulin Ratio 1.5 (1.1-2.2); Alkaline Phosphatase 102 Units/L (34-104); Aspartate Amino Transferase 12 Units/L (13-39); BUN/Creatinine Ratio 6 (6-26); Bilirubin,Direct 0.2 mg/dL (0.0-0.2); Bilirubin,Indirect 0.4 mg/dL (0.0-1.2); Bilirubin,Total 0.6 mg/dL (0.3-1.0); Blood Urea Nitrogen 30 mg/dL (8-23); Calcium 8.6 mg/dL (8.6-10.3); Carbon Dioxide 26 mEq/L (23-29); Chloride 103 mEq/L (98-107); Ethanol < 10 mg/dL (Less than 10); Globulin 2.4 g/dL (2.4-3.5); Glucose 116 mg/dL (70-105); Osmolality,Calculated 293 (280-300); Potassium 4.4 mEq/L (3.5-5.1); Sodium 138 mEq/L (136-145); Total Protein 5.9 g/dL (6.4-8.9); Troponin I 0.04 ng/mL (< 0.04); eGFR For Non-African Americans 12 (> 60)
[2018-07-01 17:26] LABS: Bilirubin,Urine Negative (Negative); Blood,Urine Negative (Negative); Clarity,Urine Clear (Clear); Color,Urine Yellow (Yellow); Glucose,Urine (UA) Normal (Normal); Ketones,Urine Trace mg/dL (Negative); Leukocyte Esterase,Urine Negative (Negative); Nitrite,Urine Negative (Negative); PH,Urine 7.5 pH Units (5.0-8.0); Protein,Urine >=300 mg/dL (Neg-Trace); Specific Gravity,Urine 1.007 (1.010-1.025); Urobilinogen,Urine Normal (Normal)
[2018-07-01 17:28] LABS: Bacteria,Urine None Seen per hpf (None-Few); RBC,Urine 0-3 per hpf (0-3); Squamous Epithelial Cell,Urine Many per lpf (None-Few); WBC,Urine 0-3 per hpf (0-3)
[2018-07-01 17:33] LABS: Amphetamine Screen,Urine Negative ng/mL (Cutoff=1000); Barbiturate Screen,Urine Negative ng/mL (Cutoff=200); Benzodiazepines Screen,Urine Negative ng/mL (Cutoff=200); Cannabinoid Screen,Urine Negative ng/mL (Cutoff = 50); Cocaine Screen,Urine Negative ng/mL (Cutoff= 300); Opiate Screen,Urine Negative ng/mL (Cutoff=300); Phencyclidine Screen,Urine Negative ng/mL (Cutoff=25)
[2018-07-01 19:18] LABS: Troponin I 0.05 ng/mL (< 0.04)
[2018-07-01 19:24] LABS: Acetaminophen < 10 mcg/mL (10-20); Salicylate < 2.5 mg/dL (15.0-30.0)
[2018-07-01] MEDS ORDERED: Aspirin 325 MG TABLET PO ONE (19:32)
[2018-07-01] MEDS ORDERED: cloNIDine HCl 0.1 MG TABLET PO ONE (19:54)
--- NOTE | 2018-07-01 21:28 | Internal Med History&Physical ---
Date of Encounter: 07/01/18 Time of Encounter: 22:00 Internal Medicine - H&P: HPI Chief complaint: Elevated troponin, acute encephalopathy Admitted From: Emergency Dept Plans for Post Hospital Care: Home History of present illness: Mr. Gomez is a 73 year old male Patient presented to the emergency room at the request of his psychiatric counselor regarding increased confusion and altered mental status. Patient jaleesa ble to give history, most of history obtained from emergency room records. Patient is a resident of a alf and was going to his psychiatry appointment when he became weak and confused. EMS was called at that time and brought him to the emergency room. There is no history of injuries or falls, and EMS reported medication was taken prior and there may be a sedative medicine that was given history is unclear. Patient is unable to give clear history, not talking to the emergency room physicians. He is a known history of diabetes and end-stage renal disease. He also has a history of schizophrenia and dementia. He does have a history of not responding to caretakers if he has an exacerbation of his psychiatric disease. There is report that patient had an extra dose of Haldol on Saturday secondary to increased agitation. His alf providers state that he has not been acting as himself. His last dialysis was on 2418. Of note, patient was seen in the emergency department last night at [facility] but was cleared to go home. He was supposed to be placed in a psychiatric unit but this is yet to occur. He then returned to the emergency room for further psychiatric evaluation and placement. In the emergency room, patient's CBC was within normal limits. Vital signs showed hypertensive history, and patient's BMP was within normal limits with noted end-stage renal disease findings. Patient's troponin initially was 0.04 and increased to 0.05 on repeat. Patient's urine tox screen and urinalysis were negative. Patient's EKG also showed no ischemic changes. Chest x-ray was negative, head CT was stable to previous imaging with no acute intracranial abnormalities a cervical spine CT was also negative for acute abnormalities. Patient was given a dose of aspirin as well as clonidine and admitted to the hospital for further monitoring. Upon my evaluation, patient does not acknowledge my presence. He did open his eyes initially to look at me when I walked into the ER room. He would not answer questions, nor cooperate with exam. He appears in no acute distress. Family history also not obtainable due to patient condition. Review of past medical admission notes do not include family history for review. Past Med Surg Social Fam HX - Past Medical History Medical history: arthritis, asthma, CHF, dementia, diabetes, dialysis, hyperlipidemia, hypertension, renal disease Additional medical history: Oral dysphagia from previous stroke Psychiatric history: bipolar, schizophrenia, other - Past Surgical History Surgical History: vascular surgery (Dialysis shunt), other Additional surgical history: FATTY TUMOR REMOVED FROM BACK. DIALYSIS FISTULA RT ARM. - Social History Smoking Status: Former smoker Smokeless Tobacco Status: No Alcohol use: unknown Drug use: unknown Internal Medicine - H&P: Meds Trihexyphenidyl [Artane] 5 mg PO HS 02/19/15 [History] Furosemide [Lasix] 40 mg PO DAILY #2 tab 09/29/16 [Rx] Insulin Glargine,Hum.rec.anlog [Lantus Solostar] 15 unit SQ HS 04/25/17 [History] Potassium Chloride [Klor-Con 10] 10 meq PO BID 04/25/17 [History] Ascorbate Calcium [Vitamin C] 500 mg PO DAILY 06/23/17 [History] Haloperidol [Haldol] 5 mg PO HS 06/23/17 [History] Folic Acid 0.4 mg PO DAILY 10/04/17 [History] Tamsulosin [Flomax] 0.4 mg PO DAILY 11/15/17 [History] Losartan [Cozaar] 50 mg PO BID 4 Days #16 tablet 11/21/17 [Rx] cloNIDine HCl [CloNIDine HCl] 0.3 mg PO TID 4 Days #36 tablet 11/21/17 [Rx] Aspirin 81 mg PO Q48H #0 12/03/17 [Rx] Linagliptin [Tradjenta] 5 mg PO DAILY 06/30/18 [History] Melatonin 5 mg PO HS 06/30/18 [History] amLODIPine [Norvasc] 10 mg PO DAILY 06/30/18 [History] Acetaminophen [Tylenol] 650 mg PO Q4H PRN 07/01/18 [History] Atorvastatin [Lipitor] 10 mg PO HS 07/01/18 [History] BuPROPion SR (12 HR) [Wellbutrin SR] 100 mg PO BID 07/01/18 [History] Calcium Acetate [Phos-LO] 2,001 mg PO TIDWM 07/01/18 [History] Doxazosin [Cardura] 8 mg PO HS 07/01/18 [History] GuaiFENesin/Dextromethorphan [Robitussin/DM] 10 ml PO Q6HR PRN 07/01/18 [History] Lidocaine/Prilocaine CREAM [Emla] 5 gm TP MOWEFR 07/01/18 [History] Magnesium Hydroxide [Milk of Magnesia] 400 mg PO DAILY PRN 07/01/18 [History] Allergy/AdvReac Type Severity Reaction Status Date / Time Penicillins [PCN] Allergy Anaphylaxis Verified 04/25/17 18:58 Thiopental [From Pentothal] Allergy Anaphylaxis Verified 04/25/17 18:58 furosemide AdvReac See Verified 04/25/17 18:58 Comments lisinopril AdvReac Cough Verified 04/25/17 18:58 Metolazone AdvReac See Verified 04/25/17 18:58 Comments ROS unobtainable: due to mental status All Systems PM: A 10-system review of systems was performed and is negative for pertinent findings except as documented above in the HPI. - Constitutional Vitals: Temp Pulse Resp BP Pulse Ox 98.5 F 88 14 187/91 100 07/01/18 15:00 07/01/18 21:06 07/01/18 21:06 07/01/18 21:06 07/01/18 21:06 General appearance: Present: no acute distress. Absent: cooperative, answers questions appropriately Exam: Patient would not answer questions, barely acknowledged my presence while in the room - Head Head exam: Present: normal inspection - Eye Additional comments: Patient would not open eyes when asked, unable to assess - Respiratory Respiratory exam: Present: CTAB. Absent: decreased breath sounds, rales, respiratory distress, rhonchi - Cardiovascular Cardiovascular exam: Present: RRR. Absent: diastolic murmur, systolic murmur - GI/Abdominal GI/Abdominal exam: Present: normal bowel sounds - Extremities Exam Extremities exam: Present: warm. Absent: pedal edema - Neurological Exam Additional comments: Unable to assess - Psychiatric Additional comments: Unable to assess - Skin Skin exam: Present: dry, normal color, warm Internal Med - H&P Results - Labs CBC & Chem 7: 07/01/18 15:33 07/01/18 15:33 Labs: Short CBC 07/01/18 Range/Units 15:33 WBC 6.2 (4.3-11.1) K/mcL Hgb 11.9 L (12.9-16.9) g/dL Hct 37.6 (37.5-50.1) % Plt Count 180 (140-400) K/mcL Neutrophils # 4.5 (1.6-8.9) K/mcL BMP 07/01/18 15:33 Sodium 138 Potassium 4.4 Chloride 103 Carbon Dioxide 26 BUN 30 H Creatinine 4.77 H Glucose 116 H Calcium 8.6 Cardiac Enzymes 07/01/18 07/01/18 Range/Units 15:33 18:37 Troponin I 0.04 H* 0.05 H* (< 0.04) ng/mL Liver Function 07/01/18 Range/Units 15:33 Total Bilirubin 0.6 (0.3-1.0) mg/dL Direct Bilirubin 0.2 (0.0-0.2) mg/dL AST 12 L (13-39) Units/L ALT 9 (7-52) Units/L Alkaline Phosphatase 102 (34-104) Units/L Albumin 3.5 (3.5-5.7) g/dL Urine 07/01/18 Range/Units 16:56 Urine Color Yellow (Yellow) Urine Clarity Clear (Clear) Urine pH 7.5 (5.0-8.0) pH Units Ur Specific Merrill 1.007 L (1.010-1.025) Urine Protein >=300 H (Neg-Trace) mg/dL Urine Glucose (UA) Normal (Normal) mg/dL - Impressions ITS Impressions Chest X-Ray 07/01/18 15:17 IMPRESSION: Negative portable chest. D/ / Yadiel Haskins MD / Yadiel Haskins MD Interpreting Provider: Yadiel Haskins MD Cervical Spine CT 07/01/18 15:18 IMPRESSION: No acute abnormality of the cervical spine. D/ / Brant Barnett MD / Brant Barnett MD Interpreting Provider: Brant Barnett MD Head CT 07/01/18 15:18 IMPRESSION: Stable appearance of the brain with no acute intracranial abnormality. There is age-appropriate cerebral atrophy with evidence of chronic periventricular small vessel ischemic disease. Chronic left maxillary sinusitis. D/ / Justin Villalobos MD / Justin Villalobos MD Interpreting Provider: Justin Villalobos MD - Assessment and plan (1) Elevated troponin Current Visit: Yes Status: Acute Assessment and plan: Likely secondary to end-stage renal disease, patient would not indicate if he had chest pain. EKG obtained in the emergency room was negative for acute changes. Initial troponin in the ER was 0.04, increased to 0.05 with recheck. Continue to trend troponins hall monitor Echocardiogram in the morning as this has not yet been done according to our records. (2) Acute encephalopathy Current Visit: Yes Status: Acute Assessment and plan: Patient has schizophrenia baseline, but according to alf staff this is not his baseline. There is note from the emergency room that he does get unresponsive with medical personnel when he has an exacerbation of his schizophrenia. Patient may have been given extra dose of Haldol at the alf which may be contributing. There is a note from psychiatry dated 04/27/2017 with recommendations to replace Haldol with a second generation antipsychotic. Patient apparently still has Haldol on his home med list however. Psych consult in the morning Continue to monitor Holding home meds until psych evaluation (3) Hypertension Current Visit: Yes Status: Acute Assessment and plan: Patient's blood pressures are elevated, has a history of this in the past. Patient likely requires dialysis for definitive treatment. Has received hydralazine in the past for this as needed with some response. When necessary hydralazine Dialysis in the a.m. Continue to monitor blood pressures Qualifiers: Hypertension type: essential hypertension Qualified Code(s): I10 - Essential (primary) hypertension (4) DM type 2 (diabetes mellitus, type 2) Current Visit: No Status: Chronic Assessment and plan: Patient has history of type 2 diabetes, is insulin-dependent. Blood sugars in the emergency room were 116. 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 Nephrology consultation for resuming dialysis in the morning Continue to monitor (6) Schizophrenia, disorganized, chronic Current Visit: No Status: Chronic Assessment and plan: Psychiatry evaluation in the morning. Current exacerbation could be secondary to an additional dose of Haldol given into alf. Continue to monitor Follow-up psychiatry evaluation (7) DVT prophylaxis Current Visit: Yes Status: Acute Assessment and plan: Heparin subcutaneous - Time Spent With Patient Total time spent is greater than 50% in coordination of care (as documented) at patient's floor/unit and/or counseling patient: Greater than 35 minutes
[2018-07-02] MEDS ORDERED: Naloxone 0.4 MG/ML INJ IVP PRN (01:49)
[2018-07-02 02:10] LABS: Hematocrit 33.4 % (37.5-50.1); Mean Corpuscular HGB Conc 32.9 g/dL (31.6-35.5); Mean Corpuscular Hemoglobin 30.3 pg (28.0-33.3); Mean Platelet Volume 9.6 fL (9.4-12.4); Platelet Count 187 K/mcL (140-400); Red Blood Count 3.63 M/mcL (4.19-5.50); Red Cell Distribution Width 13.3 % (11.5-14.5)
[2018-07-02] MEDS ORDERED: D5% in Water 1,000 ML IVC PRN (02:14)
[2018-07-02] MEDS ORDERED: *HR* Dextrose 50 % in Water (Syg) 50 ML SYRINGE IVP PRN (02:14)
[2018-07-02] MEDS ORDERED: Dextrose Gel 15 GM/37.5 ML TUBE PO PRN ×2 (02:14)
[2018-07-02 02:41] LABS: Calcium 8.5 mg/dL (8.6-10.3); Potassium 4.2 mEq/L (3.5-5.1)
[2018-07-02] MEDS: Insulin LISPRO 300 UNITS/3 ML VIAL SQ SCH ×4 (04:23→22:51)
[2018-07-02] MEDS: *HR* Heparin 5,000 UNIT/ML VIAL SQ SCH ×2 (04:30→17:19)
[2018-07-02] MEDS ORDERED: 0.9 % Sodium Chloride 250 ML IVC PRN (06:49)
[2018-07-02] MEDS ORDERED: 0.9 % Sodium Chloride 1,000 ML PRIME SCH (07:00)
--- NOTE | 2018-07-02 09:58 | Nephrology Consult Note ---
Addendum entered and electronically signed by Soy Eng DO 07/02/18 19:38: I have personally performed a face to face evaluation on this patient. I have reviewed and agree with the care plan. History and Exam by me shows: 73-year-old male with a past medical history of end-stage renal disease. He is not followed by the [facility], so I reviewed historical visits and read his prior online communications specialist's notes. Of note Dr. Isbell no longer rounds or has inpatient coverage at [facility], so I would be happy to help consult in the meantime. The patient's outside dialysis records are not immediately available to me either. He is very uncooperative and was not able to answer any of my questions or allow me to examine him. He also did not reply to questions regarding family history, which I attended to obtain. Thank you for consult in the [facility], and I will continue to follow with you. Original Note: Date of Encounter: 07/02/18 Time of Encounter: 09:51 Assessment and Plan (1) ESRD (end stage renal disease) on dialysis Current Visit: Yes Status: Acute Current regimen is unsure if MWF or TTS. Plan for HD today. Renal diet Renal vitamins Strict I/O Avoid nephrotoxins and renal dose all medications. (2) Acute encephalopathy Current Visit: Yes Status: Acute Per primary. (3) Elevated troponin Current Visit: Yes Status: Acute Initial troponin was 0.05 and then 0.06. Per primary. (4) History of schizophrenia Current Visit: Yes Status: Acute Per primary. (5) DM type 2 (diabetes mellitus, type 2) Current Visit: No Status: Chronic Per primary. Qualifiers: Qualified Code(s): E11.9 - Type 2 diabetes mellitus without complications History of Present Illness - Reason for Consult Consult date: 07/02/18 Acute Kidney Injury, end stage renal disease Requesting physician: Arian Dunlap - Chief Complaint AMS - History of Present Illness Mr. Gomez is a 73 year old male who presented from outpatient psychiatry appointment. He resides in [place]. PMH: CHF, dementia, diabetes, HTN. ESRD unsure if [place] does a TTS schedule. Patient does have a fistula. Patient does not open eyes when spoke too. He does not acknowledge my existence in the room. All information was obtained from chart review. ROS was unobtainable due to mentation. [facility] were consulted to manage inpatient hemodialysis at this time. HD has already been ordered for today. Past Med Surg Social Fam HX - Past Medical History Medical history: arthritis, asthma, CHF, dementia, diabetes, dialysis, hyperlipidemia, hypertension, renal disease Additional medical history: Oral dysphagia from previous stroke Psychiatric history: bipolar, schizophrenia, other - Past Surgical History Surgical History: vascular surgery (Dialysis shunt), other Additional surgical history: FATTY TUMOR REMOVED FROM BACK. DIALYSIS FISTULA RT ARM. - Social History Smoking Status: Former smoker Smokeless Tobacco Status: No Alcohol use: unknown Drug use: unknown Medications and Allergies Trihexyphenidyl [Artane] 5 mg PO HS 02/19/15 [History] Furosemide [Lasix] 40 mg PO DAILY #2 tab 09/29/16 [Rx] Insulin Glargine,Hum.rec.anlog [Lantus Solostar] 15 unit SQ HS 04/25/17 [History] Potassium Chloride [Klor-Con 10] 10 meq PO BID 04/25/17 [History] Ascorbate Calcium [Vitamin C] 500 mg PO DAILY 06/23/17 [History] Haloperidol [Haldol] 5 mg PO HS 06/23/17 [History] Folic Acid 0.4 mg PO DAILY 10/04/17 [History] Tamsulosin [Flomax] 0.4 mg PO DAILY 11/15/17 [History] Losartan [Cozaar] 50 mg PO BID 4 Days #16 tablet 11/21/17 [Rx] cloNIDine HCl [CloNIDine HCl] 0.3 mg PO TID 4 Days #36 tablet 11/21/17 [Rx] Aspirin 81 mg PO Q48H #0 12/03/17 [Rx] Linagliptin [Tradjenta] 5 mg PO DAILY 06/30/18 [History] Melatonin 5 mg PO HS 06/30/18 [History] amLODIPine [Norvasc] 10 mg PO DAILY 06/30/18 [History] Acetaminophen [Tylenol] 650 mg PO Q4H PRN 07/01/18 [History] Atorvastatin [Lipitor] 10 mg PO HS 07/01/18 [History] BuPROPion SR (12 HR) [Wellbutrin SR] 100 mg PO BID 07/01/18 [History] Calcium Acetate [Phos-LO] 2,001 mg PO TIDWM 07/01/18 [History] Doxazosin [Cardura] 8 mg PO HS 07/01/18 [History] GuaiFENesin/Dextromethorphan [Robitussin/DM] 10 ml PO Q6HR PRN 07/01/18 [History] Lidocaine/Prilocaine CREAM [Emla] 5 gm TP MOWEFR 07/01/18 [History] Magnesium Hydroxide [Milk of Magnesia] 400 mg PO DAILY PRN 07/01/18 [History] Allergy/AdvReac Type Severity Reaction Status Date / Time Penicillins [PCN] Allergy Anaphylaxis Verified 04/25/17 18:58 Thiopental [From Pentothal] Allergy Anaphylaxis Verified 04/25/17 18:58 lisinopril AdvReac Cough Verified 04/25/17 18:58 Metolazone AdvReac See Verified 04/25/17 18:58 Comments Review of Systems ROS unobtainable: due to mental status Exam - Vital Signs Vital signs: Initial Vital Signs Temp Pulse Resp BP Pulse Ox 98.5 F 91 19 191/94 97 07/01/18 15:00 07/01/18 15:00 07/01/18 15:00 07/01/18 15:00 07/01/18 15:00 Vital Signs - Last 8 Hours Temp Pulse Resp BP Pulse Ox 07/02/18 07:33 97.8 F 90 18 193/92 93 07/02/18 04:03 97.5 F L 73 17 186/86 95 Intake and Output 07/01/18 07/02/18 07/02/18 23:59 07:59 15:59 Other: Weight 72 kg Blood Glucose* 191 80 - General Appearance General appearance: well-developed, well-nourished EENT: ATNC Neck: supple Respiratory: clear Cardiology: no edema, normal S1, normal S2 - Dialysis Access Dialysis Vascular Access: Arteriovenous Fistula thrill: Yes bruit: Yes Gastrointestinal: normoactive bowel sounds, no tenderness, no guarding Integumentary: no rash, warm and dry Additional Comments: Unsure of mentation at this time. Patient does not acknowledge I am in the room. Musculoskeletal: no deformities, no erythema Psychiatric: mood/affect appropriate, cooperative Results - Lab Results 07/02/18 01:58 07/02/18 01:58 Most recent lab results Calcium 8.5 mg/dL (8.6-10.3) L 07/02/18 01:58 Consult Discharge Plan - Plan Referrals: NONE,PCP [Primary Care Provider] -
[2018-07-02] MEDS ORDERED: Acetaminophen 325 MG TABLET PO PRN (10:11)
[2018-07-02] MEDS ORDERED: Haloperidol Lactate 5 MG/ML VIAL IVP ONE (11:26)
[2018-07-02] MEDS ORDERED: Haloperidol Lactate 5 MG/ML VIAL IVP PRN (11:30)
[2018-07-02] MEDS: Calcium Acetate 667 MG CAPSULE PO SCH ×2 (11:36→17:19)
[2018-07-02] MEDS: amLODIPine 5 MG TABLET PO SCH (11:36)
[2018-07-02] MEDS ORDERED: Haloperidol Lactate 5 MG/ML VIAL IVP SCH (12:00)
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
[2018-07-02] MEDS: cloNIDine HCl 0.1 MG TABLET PO SCH ×2 (15:23→20:08)
[2018-07-02] MEDS ORDERED: diazePAM 10 MG/2 ML SYRINGE IVP ONE (15:51)
--- NOTE | 2018-07-02 15:56 | Internal Med Progress Note ---
Hospitalist Progress Note - Encounter Date of Encounter: 07/02/18 Time of Encounter: 15:53 - Subjective Interval History: Evaluated patient earlier today. He was not responding to my questions. Was awake and alert. Appeared Catatonic. - Exam Vitals: Temp Pulse Resp BP Pulse Ox 98.1 F 92 16 190/93 97 07/02/18 11:47 07/02/18 11:47 07/02/18 11:47 07/02/18 11:47 07/02/18 11:47 Exam: General: Patient is alert, not answering questions. Withdrawn. Respiratory: Good respiratory effort. Normal breath sounds. No wheezing or crackles. Cardiovascular: Regular rate and rhythm. s1 and s2 normal No clicks, rubs, gallops, or murmurs. No pedal edema Abdomen: Abdomen is soft, nontender. Bowel sounds are present Musculoskeletal: Spontaneously moving all extremities Skin: warm, dry, intact. Psych: Flat affect. Catatonic - Assessment and Plan (1) Acute encephalopathy Current Visit: Yes Status: Acute Assessment and Plan: Acute metabolic/psychogenic encephalopathy. 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 Psychiatry consult appreciated. We will follow recommendations. Hold haloperidol, bupropion and trihexyphenidyl. Will give diazepam instead as recommended. (2) Diabetes Current Visit: Yes Status: Chronic Assessment and Plan: Blood sugars are well controlled. (3) Congestive heart failure (CHF) Current Visit: Yes Status: Chronic Assessment and Plan: Reported history in the chart. Unable to determine type. Not in acute exacerbation at this (4) Elevated troponin Current Visit: Yes Status: Acute Assessment and Plan: Stable. Adynamic. Likely due to end-stage renal disease (5) Hypertension Current Visit: Yes Status: Chronic Assessment and Plan: Blood pressure elevated. Continue home medications. We will also add intravenous medications if patient not taking oral meds. DVT Prophylaxis: Sq heparin - Time Spent with Patient Total time spent is greater than 50% in coordination of care (as documented) at patient's floor/unit and/or counseling patient: Internal Medicine: Result - Labs CBC & Chem 7: 07/02/18 01:58 07/02/18 01:58 Labs: Short CBC 07/02/18 Range/Units 01:58 WBC 6.9 (4.3-11.1) K/mcL Hgb 11.0 L (12.9-16.9) g/dL Hct 33.4 L (37.5-50.1) % Plt Count 187 (140-400) K/mcL BMP 07/01/18 07/02/18 15:33 01:58 Sodium 138 137 Potassium 4.4 4.2 Chloride 103 106 Carbon Dioxide 26 27 BUN 30 H 35 H Creatinine 4.77 H 5.36 H Glucose 116 H 97 Calcium 8.6 8.5 L Cardiac Enzymes 07/01/18 07/01/18 07/02/18 Range/Units 15:33 18:37 01:58 Troponin I 0.04 H* 0.05 H* 0.06 H* (< 0.04) ng/mL Liver Function 07/01/18 Range/Units 15:33 Total Bilirubin 0.6 (0.3-1.0) mg/dL Direct Bilirubin 0.2 (0.0-0.2) mg/dL AST 12 L (13-39) Units/L ALT 9 (7-52) Units/L Alkaline Phosphatase 102 (34-104) Units/L Albumin 3.5 (3.5-5.7) g/dL Urine 07/01/18 Range/Units 16:56 Urine Color Yellow (Yellow) Urine Clarity Clear (Clear) Urine pH 7.5 (5.0-8.0) pH Units Ur Specific [place] 1.007 L (1.010-1.025) Urine Protein >=300 H (Neg-Trace) mg/dL Urine Glucose (UA) Normal (Normal) mg/dL - ABG Interpretation ABG results: PT/INR, D-dimer PT 11.3 Seconds (9.4-12.1) 07/01/18 15:33 - Impressions Impressions Chest X-Ray 07/01/18 15:17 IMPRESSION: Negative portable chest. D/ / Yadiel Haskins MD / Yadiel Haskins MD Interpreting Provider: Yadiel Haskins MD Cervical Spine CT 07/01/18 15:18 IMPRESSION: No acute abnormality of the cervical spine. D/ / Brant Barnett MD / Brant Barnett MD Interpreting Provider: Brant Barnett MD Head CT 07/01/18 15:18 IMPRESSION: Stable appearance of the brain with no acute intracranial abnormality. There is age-appropriate cerebral atrophy with evidence of chronic periventricular small vessel ischemic disease. Chronic left maxillary sinusitis. D/ / Justin Villalobos MD / Justin Villalobos MD Interpreting Provider: Justin Villalobos MD Consult Discharge Plan - Plan Referrals: NONE,PCP [Primary Care Provider] - (2) Diabetes Qualifiers: Diabetes mellitus type: type 2 Diabetes mellitus oil heaterman insulin use: without oil heaterman use Diabetes mellitus complication status: with kidney complications Diabetes mellitus complication detail: with chronic kidney disease Chronic kidney disease stage: on chronic dialysis Qualified Code(s): E11.22 - Type 2 diabetes mellitus with diabetic chronic kidney disease; N18.6 - End stage renal disease; Z99.2 - Dependence on renal dialysis (3) Congestive heart failure (CHF) Qualifiers: Heart failure type: unspecified Heart failure chronicity: unspecified Shan lified Code(s): I50.9 - Heart failure, unspecified (5) Hypertension Qualifiers: Hypertension type: essential hypertension Qualified Code(s): I10 - Essential (primary) hypertension
[2018-07-02 16:02] LABS: Hepatitis B Surface Antibody < 3.10 mIU/mL
[2018-07-02 16:12] LABS: Hepatitis B Surface Antigen Nonreactive (Nonreactive)
[2018-07-02] MEDS: *HR* Labetalol 20 MG/4 ML SYRINGE IVP PRN ×3 (19:39→22:15)
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
[2018-07-02] MEDS: BuPROPion SR (12 HR) 100 MG TABLET PO SCH (20:08)
[2018-07-02] MEDS: Melatonin 3 MG TABLET PO SCH (20:08)
[2018-07-03] MEDS: *HR* Labetalol 20 MG/4 ML SYRINGE IVP PRN ×5 (03:38→15:00)
[2018-07-03] MEDS: *HR* Heparin 5,000 UNIT/ML VIAL SQ SCH ×2 (04:09→18:14)
[2018-07-03] MEDS: Insulin LISPRO 300 UNITS/3 ML VIAL SQ SCH ×3 (04:10→18:14)
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
[2018-07-03 05:53] LABS: Basophils % 0.5 %; Eosinophils # 0.2 K/mcL (0.0-0.6); Eosinophils % 1.8 %; Hemoglobin 12.1 g/dL (12.9-16.9); Immature Granulocytes % 0.2 % (0-4); Lymphocytes # 1.5 K/mcL (0.6-4.6); Lymphocytes % 16.6 %; Mean Corpuscular HGB Conc 32.7 g/dL (31.6-35.5); Mean Corpuscular Hemoglobin 29.8 pg (28.0-33.3); Mean Corpuscular Volume 91.1 fL (83.0-100.0); Mean Platelet Volume 10.1 fL (9.4-12.4); Monocytes # 0.6 K/mcL (0.0-1.3); Monocytes % 6.2 %; Neutrophils # 6.6 K/mcL (1.6-8.9); Platelet Count 201 K/mcL (140-400); Red Blood Count 4.06 M/mcL (4.19-5.50); Red Cell Distribution Width 13.2 % (11.5-14.5); Segmented Neutrophils % 74.7 %
[2018-07-03 06:04] LABS: Calcium 9.2 mg/dL (8.6-10.3); Phosphorous 3.9 mg/dL (2.7-4.5)
[2018-07-03] MEDS ORDERED: diazePAM 10 MG/2 ML SYRINGE IVP PRN (08:25)
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
[2018-07-03] MEDS: Calcium Acetate 667 MG CAPSULE PO SCH ×3 (10:07→16:50)
[2018-07-03] MEDS: Folic Acid 1 MG TABLET PO SCH (10:08)
[2018-07-03] MEDS: BuPROPion SR (12 HR) 100 MG TABLET PO SCH ×2 (10:08→20:52)
[2018-07-03] MEDS: Furosemide 40 MG TABLET PO SCH (10:08)
[2018-07-03] MEDS: cloNIDine HCl 0.1 MG TABLET PO SCH (10:08)
[2018-07-03] MEDS: amLODIPine 5 MG TABLET PO SCH (10:08)
[2018-07-03] MEDS: Aspirin 81 MG TAB.CHEW PO SCH (10:08)
[2018-07-03] MEDS ORDERED: CloNIDine Patch 0.3 MG PATCH (WEEKLY) TD SCH (11:00)
[2018-07-03] MEDS: Melatonin 3 MG TABLET PO SCH (20:52)
[2018-07-03] MEDS: Haloperidol Lactate 5 MG/ML VIAL IVP SCH (22:58)
[2018-07-03] MEDS: diazePAM 10 MG/2 ML SYRINGE IVP SCH (23:02)
[2018-07-04] MEDS: Insulin LISPRO 300 UNITS/3 ML VIAL SQ SCH ×5 (00:24→23:35)
[2018-07-04] MEDS ORDERED: 0.9 % Sodium Chloride 250 ML IVC PRN (05:29)
[2018-07-04] MEDS: *HR* Heparin 5,000 UNIT/ML VIAL SQ SCH ×2 (06:02→20:04)
[2018-07-04 06:08] LABS: Basophils % 0.2 %; Eosinophils % 0.3 %; Hemoglobin 12.3 g/dL (12.9-16.9); Immature Granulocytes % 0.4 % (0-4); Lymphocytes # 1.8 K/mcL (0.6-4.6); Lymphocytes % 14.9 %; Mean Corpuscular HGB Conc 32.4 g/dL (31.6-35.5); Mean Corpuscular Hemoglobin 29.4 pg (28.0-33.3); Mean Corpuscular Volume 90.9 fL (83.0-100.0); Mean Platelet Volume 9.9 fL (9.4-12.4); Monocytes # 0.9 K/mcL (0.0-1.3); Neutrophils # 9.5 K/mcL (1.6-8.9); Platelet Count 237 K/mcL (140-400); Red Blood Count 4.18 M/mcL (4.19-5.50); Red Cell Distribution Width 13.4 % (11.5-14.5); Segmented Neutrophils % 77.2 %
[2018-07-04 06:23] LABS: Calcium 9.5 mg/dL (8.6-10.3); Phosphorous 5.6 mg/dL (2.7-4.5); Potassium 3.9 mEq/L (3.5-5.1)
[2018-07-04] MEDS: *HR* Labetalol 20 MG/4 ML SYRINGE IVP PRN ×2 (06:24→23:25)
[2018-07-04] MEDS ORDERED: 0.9 % Sodium Chloride 2,000 ML ONE (07:02)
--- NOTE | 2018-07-04 08:59 | Internal Med Progress Note ---
Hospitalist Progress Note - Encounter Date of Encounter: 07/03/18 Time of Encounter: 09:55 - Subjective Interval History: Patient continues to be nonresponsive to questions. Has a blank stare. Had become aggressive overnight and alejandra morgan was called and patient was placed in restraints. Restraints were removed earlier this morning. Remains persistently hypotensive. Not taking his oral medications. - Exam Vitals: Temp Pulse Resp BP Pulse Ox 97.7 F 78 16 226/115 96 07/04/18 08:28 07/04/18 08:28 07/04/18 08:28 07/04/18 08:28 07/04/18 08:28 Exam: General: Patient is alert, not responding to questions. Respiratory: Good respiratory effort. Normal breath sounds. No wheezing or crackles. Cardiovascular: Regular rate and rhythm. s1 and s2 normal No clicks, rubs, gallops, or murmurs. No pedal edema Abdomen: Abdomen is soft, nontender. Bowel sounds are present Musculoskeletal: Spontaneously moving all extremities Skin: warm, dry, intact. Psych: Flat affect. Catatonic - Assessment and Plan (1) Acute encephalopathy Current Visit: Yes Status: Acute Assessment and Plan: Possible flareup of catatonia. Discussed with psychiatric. Patient did not respond to diazepam challenge. We will resume Haldol. One-to-one sitter at bedside. (2) Diabetes Current Visit: Yes Status: Chronic Assessment and Plan: Controlled. Continue current insulin regimen (3) Congestive heart failure (CHF) Current Visit: Yes Status: Chronic Assessment and Plan: Continue volume management with hemodialysis. Patient not taking his oral Lasix. Not in acute exacerbation. (4) Elevated troponin Current Visit: Yes Status: Acute Assessment and Plan: Adynamic. Likely due to end-stage renal disease. (5) Hypertension Current Visit: Yes Status: Chronic Assessment and Plan: Uncontrolled. Clonidine patch added. Patient also placed on IV Vasotec in addition to IV hydralazine and Lopressor as needed. If remains uncontrolled, will make need to place him on a nicardipine drip DVT Prophylaxis: On subcutaneous heparin - Time Spent with Patient Total time spent is greater than 50% in coordination of care (as documented) at patient's floor/unit and/or counseling patient: Internal Medicine: Result - Labs CBC & Chem 7: 07/04/18 05:31 07/04/18 05:31 Labs: Short CBC 07/04/18 Range/Units 05:31 WBC 12.3 H (4.3-11.1) K/mcL Hgb 12.3 L (12.9-16.9) g/dL Hct 38.0 (37.5-50.1) % Plt Count 237 (140-400) K/mcL Neutrophils # 9.5 H (1.6-8.9) K/mcL BMP 07/04/18 05:31 Sodium 142 Potassium 3.9 Chloride 103 Carbon Dioxide 25 BUN 53 H Creatinine 6.29 H Glucose 137 H Calcium 9.5 - ABG Interpretation ABG results: PT/INR, D-dimer PT 11.3 Seconds (9.4-12.1) 07/01/18 15:33 Consult Discharge Plan - Plan Referrals: NONE,PCP [Primary Care Provider] - (2) Diabetes Qualifiers: Diabetes mellitus type: type 2 Diabetes mellitus skilled nursing insulin use: without skilled nursing use Diabetes mellitus complication status: with kidney complications Diabetes mellitus complication detail: with chronic kidney disease Chronic kidney disease stage: on chronic dialysis Qualified Code(s): E11.22 - Type 2 diabetes mellitus with diabetic chronic kidney disease; N18.6 - End stage renal disease; Z99.2 - Dependence on renal dialysis (3) Congestive heart failure (CHF) Qualifiers: Heart failure type: unspecified Heart failure chronicity: unspecified Qualified Code(s): I50.9 - Heart failure, unspecified (5) Hypertension Qualifiers: Hypertension type: essential hypertension Qualified Code(s): I10 - Essential (primary) hypertension
[2018-07-04] MEDS: Calcium Acetate 667 MG CAPSULE PO SCH ×3 (09:47→16:40)
[2018-07-04] MEDS: Folic Acid 1 MG TABLET PO SCH (09:49)
[2018-07-04] MEDS: amLODIPine 5 MG TABLET PO SCH (09:49)
[2018-07-04] MEDS: BuPROPion SR (12 HR) 100 MG TABLET PO SCH ×2 (09:50→19:45)
[2018-07-04] MEDS: diazePAM 10 MG/2 ML SYRINGE IVP SCH ×3 (09:50→22:20)
[2018-07-04] MEDS: Furosemide 40 MG TABLET PO SCH (09:52)
--- NOTE | 2018-07-04 09:56 | Nephrology Progress Note ---
Date of Encounter: 07/04/18 Time of Encounter: 09:53 - Assessment and Plan (1) ESRD (end stage renal disease) on dialysis Current Visit: Yes Status: Acute Current regimen is unsure if MWF. Renal diet Renal vitamins Strict I/O Avoid nephrotoxins and renal dose all medications. Patient was seen on dialysis. (2) DM type 2 (diabetes mellitus, type 2) Current Visit: No Status: Chronic Qualifiers: Qualified Code(s): E11.9 - Type 2 diabetes mellitus without complications (3) Elevated troponin Current Visit: Yes Status: Acute (4) History of schizophrenia Current Visit: Yes Status: Acute (5) Acute encephalopathy Current Visit: Yes Status: Acute (6) Hypertension Current Visit: Yes Status: Acute Patient with elevated blood pressure on dialysis. Titrate his antihypertensive regimen as needed. Qualifiers: Qualified Code(s): I10 - Essential (primary) hypertension Subjective Principal diagnosis: AMS Interval history: Patient seen on dialysis. He is asleep. Secondary to his history he was not awakened. Objective - Vital Signs Vital signs: Vital Signs Temp Pulse Resp BP Pulse Ox 07/04/18 08:35 97.0 F L 22 194/99 07/04/18 08:28 97.7 F 78 16 226/115 96 07/04/18 06:29 71 211/94 07/04/18 06:15 101 231/105 07/04/18 04:20 98.2 F 95 17 207/104 92 07/03/18 23:20 97.9 F 103 17 182/86 96 07/03/18 22:25 199/91 07/03/18 20:44 98.6 F 89 17 231/107 97 07/03/18 20:40 98.6 F 89 17 231/107 97 07/03/18 18:25 183/92 07/03/18 17:30 97.6 F 94 20 206/104 95 07/03/18 14:59 217/90 07/03/18 12:46 197/95 07/03/18 12:04 97.3 F L 74 16 199/102 95 Intake and Output 07/03/18 07/04/18 07/04/18 23:59 07:59 15:59 Intake Total 600 / 600 Balance 600 / 600 Intake: Oral 0 / 0 Intake, Rinseback and Flushes 600 / 600 Other: Meal strawberry ice cream Percent of Meal Consumed 50% Stool Size Large Stool Consistency loose liquid Stool Color Brown # Urine Diapers 1 # Bowel Movement Diapers 1 Weight 70.1 kg 70.1 kg Blood Glucose* 152 119 Hemodialysis Net Fluid Removed 0 (mL) Patient Weight 07/04/18 23:59 Weight 70.1 kg - General Appearance General appearance: Present: well-developed, well-nourished EENT: Present: ATNC Cardiology: Present: regular rate - Lab 07/04/18 05:31 07/04/18 05:31 Most recent lab results Calcium 9.5 mg/dL (8.6-10.3) 07/04/18 05:31 Phosphorus 5.6 mg/dL (2.7-4.5) H 07/04/18 05:31 Consult Discharge Plan - Plan Referrals: NONE,PCP [Primary Care Provider] -
--- NOTE | 2018-07-04 12:01 | Neurology - Consult Note ---
Addendum entered and electronically signed by Suhas Ibrahim MD 07/04/18 16:28: Patient seen and examined in the presence of Trae Mullins and case discussed and imaging studies ( CT of head, previous MRI of brain) reviewed together and i agree with his history taking, physical examination, assessment and plan outlined below. in summary, this is a 73-year-old man with past medical history significant for schizophrenia, hypertension, dementia, COPD, chronic kidney disease, CHF who developed acute mental status changes and initially neurology was consulted due to catatonic features which the patient does not have at the time of this interview. Current neurological examination demonstrated reduced level of consciousness but the patient is still arousable but cannot maintain alertness. He does not appear to have any significant focal weakness. Patient is able to move all extremities although he does not currently follow commands. There is no nuchal rigidity no cranial nerve deficits and the patient does have multiple medical conditions that can cause acute mental status changes including his COPD, worsening renal insufficiency as well as elevated white blood cell count. Likely we are dealing with medical encephalopathy on top of baseline dementia. -We will agree to get a MRI of the brain to rule out intracranial abnormality especially small strokes that may be missed on CT of head. Currently, we will recommend continuing medical and supportive care -No clinical symptoms suggesting seizure or partial seizure activity since the patient is arousable and responsive. Family history: Mother , HD. Father , Cancer No known family history of mental disorder Original Note: Date of Encounter: 07/04/18 Time of Encounter: 11:52 Assessment and Plan (1) Acute encephalopathy Current Visit: Yes Status: Acute Neurology consulted for evaluation of altered mental state. History of schizophrenia. Taking Haldol for antipsychotic. The patient presented from long term with AMS. He has a history of schizophrenia and dementia. It is reported that normally during exacerbations of schizophrenia the patient develops catatonia. Subsequently, he was admitted for evaluation with concerns for catatonia. Psychiatry has seen the patient and a benzodiazepine trial was recommended. He did not appear to respond to the benzodiazepine trial as would be expected with catatonia. An EKG was obtained in the ED showing no ischemic changes. Chest x-ray was negative for acute pulmonary process. Head CT did not reveal any acute process per my review. UDS negative for toxins. UA is not indicative of UTI. He has no obvious sources of infection. He was hypertensive on admission with SBP greater than 190 and he hypertensive with hypertensive urgency. Per my assessment this afternoon the patient continues to have an altered mental state and he is nonverbal. He he makes eye contact to voice and will squeeze my hands to command however, he does not participate to any other part of the examination. I did witness non-purposeful and spontaneous movement of all 4 extremities and he will roll himself from left to right in bed. His reflexes are grossly normal but he has an altered sensory exam and does not respond to noxious or painful stimuli. He does not appear to be rigid or unresponsive as would be expected with catatonia. Additionally, I would expect that if this were true catatonia he would have responded at least partially to a benzodiazepine trial. I do believe that he is encephalopathic which is causing his altered mental state. The encephalopathy is multifactorial with hy pertensive urgency/emergency, end-stage renal disease and uremia. However, we will proceed with caution and order an MRI to further evaluate for any pathological cause of altered mental state. MRI is negative I recommend medical management. History of Present Illness Chief complaint: Altered mental state; encephalopathy HPI: Mr. Gomez is a 73 year old male with a PMH of CHF, dementia, DM, ESRD on hemodialysis, HLD, HTN, bipolar/schizophrenia and prior CVA. He presented to [facility] from a nursing facility with altered mental state. It is unclear when this began exactly. Neurology has been consulted as there is some concern whether or not the patient is catatonic or if the AMS is caused by acute encephalopathy. Given his altered mental state I am unable to obtain a review of systems. Per review of the patient's chart it appears that he was having hypertensive urgency/emergency on admission. His serum creatinine is elevated on admission and he is uremic. These findings can explain altered mental state with acute e ncephalopathy. CT of the head is negative for acute intracranial process, chest x-ray negative for acute pulmonary process, UDS did not reveal any toxins and UA is not indicative of UTI. The patient does have a history of schizophrenia and it appears that he is typically catatonic when this is exacerbated. Psychiatry has been consulted and a benzodiazepine challenge was given without a favorable response. Past Med Surg Social Fam HX - Past Medical History Medical history: arthritis, asthma, CHF, dementia, diabetes, dialysis, hyperlipidemia, hypertension, renal disease Additional medical history: Oral dysphagia from previous stroke Psychiatric history: anxiety, bipolar, depression, schizophrenia, other (dementia) - Past Surgical History Surgical History: vascular surgery (Dialysis shunt), other Additional surgical history: FATTY TUMOR REMOVED FROM BACK. DIALYSIS FISTULA RT ARM. - Social History Smoking Status: Former smoker Smokeless Tobacco Status: No Alcohol use: unknown Drug use: unknown Medications and Allergies Trihexyphenidyl [Artane] 5 mg PO HS 02/19/15 [History] Furosemide [Lasix] 40 mg PO DAILY #2 tab 09/29/16 [Rx] Insulin Glargine,Hum.rec.anlog [Lantus Solostar] 15 unit SQ HS 04/25/17 [History] Potassium Chloride [Klor-Con 10] 10 meq PO BID 04/25/17 [History] Ascorbate Calcium [Vitamin C] 500 mg PO DAILY 06/23/17 [History] Haloperidol [Haldol] 5 mg PO HS 06/23/17 [History] Folic Acid 0.4 mg PO DAILY 10/04/17 [History] Tamsulosin [Flomax] 0.4 mg PO DAILY 11/15/17 [History] Losartan [Cozaar] 50 mg PO BID 4 Days #16 tablet 11/21/17 [Rx] cloNIDine HCl [CloNIDine HCl] 0.3 mg PO TID 4 Days #36 tablet 11/21/17 [Rx] Aspirin 81 mg PO Q48H #0 12/03/17 [Rx] Linagliptin [Tradjenta] 5 mg PO DAILY 06/30/18 [History] Melatonin 5 mg PO HS 06/30/18 [History] amLODIPine [Norvasc] 10 mg PO DAILY 06/30/18 [History] Acetaminophen [Tylenol] 650 mg PO Q4H PRN 07/01/18 [History] Atorvastatin [Lipitor] 10 mg PO HS 07/01/18 [History] BuPROPion SR (12 HR) [Wellbutrin SR] 100 mg PO BID 07/01/18 [History] Calcium Acetate [Phos-LO] 2,001 mg PO TIDWM 07/01/18 [History] Doxazosin [Cardura] 8 mg PO HS 07/01/18 [History] GuaiFENesin/Dextromethorphan [Robitussin/DM] 10 ml PO Q6HR PRN 07/01/18 [History] Lidocaine/Prilocaine CREAM [Emla] 5 gm TP MOWEFR 07/01/18 [History] Magnesium Hydroxide [Milk of Magnesia] 400 mg PO DAILY PRN 07/01/18 [History] Allergy/AdvReac Type Severity Reaction Status Date / Time Penicillins [PCN] Allergy Anaphylaxis Verified 04/25/17 18:58 Thiopental [From Pentothal] Allergy Anaphylaxis Verified 04/25/17 18:58 lisinopril AdvReac Cough Verified 04/25/17 18:58 Metolazone AdvReac See Verified 04/25/17 18:58 Comments ROS unobtainable: due to mental status All Systems: The remainder of the systems were reviewed and are negative Physical Examination - Vital Signs Vital Signs: Initial Vital Signs Temp Pulse Resp BP Pulse Ox 98.5 F 91 19 191/94 97 07/01/18 15:00 07/01/18 15:00 07/01/18 15:00 07/01/18 15:00 07/01/18 15:00 - Exam Exam: Examination: The neurological examination is limited by the patient's alteration in mental status. General Examination: *CONSTITUTIONAL: Temp 97.0F, HR 78, RR 16 and 96% on RA, initial BP 226/115, repeat while getting hemodialysis 136/91 *GENERAL APPEARANCE OF PATIENT ill-appearing elderly male *EYES: pupils equal, round, reactive to light and accommodation, conjunctiva clear without masses or ulcerations, fundi normal. *CARDIOVASCULAR RRR, S1, S2, no mumurs, rubs, or gallops, no peripheral edema, distal temperature normal, dorsalis pedis pulses normal. Musculoskeletal: *ASSESSMENT OF MUSCLE STRENGTH IN THE UPPER AND LOWER EXTREMITIES for the most part he does not follow commands therefore I am unable to assess muscle strength or Station and gait. However, patient does have non-spastic spontaneous movement of all 4 extremities. He will squeeze hands to command. *MUSCLE TONE IN THE UPPER AND LOWER EXTREMITIES normal. No abnormal movements, fasciculations or atrophy identified. Neurological: *ORIENTATION altered mental state, nonverbal *RECURRENT AND REMOTE MEMORY intact *ATTENTION AND CONCENTRATION altered, inattentive and nonverbal *MENTAL attention span and concentration normal are altered with acute encephalopathy *CN II optic fundi were normal, no papilledema noted. *CN III,IV, PERRLA, denies movement symmetrically horizontally; able to follow voice from left to right, no ptosis noted. *SENSORY EXAMINATION no response to noxious or painful stimuli; due to encephalopathic state *REFLEXES: deep tendon reflexes were normal and symmetrical , grade 2/4 diffusely, no pathological reflexes were noted. . *PAIN LEVEL *GAIT AND STATION sitting upright in bed with erect posture unassisted *ASSESSMENT OF MUSCLE STRENGTH IN THE UPPER AND LOWER EXTREMITIES bilateral deltoid, bicep, tricep, fleet sales associate strength, hip flexors ,anterior tibialis, dorsoflexion of the foot 4/5 *MUSCLE TONE IN THE UPPER AND LOWER EXTREMITIES normal. No abnormal movements, fasciculations or atrophy identified. Neurological: *ORIENTATION to person, place, time and situation *RECURRENT AND REMOTE MEMORY intact; recalls events leading up to admission *ATTENTION AND CONCENTRATION are normal, she is not easily distracted and is focused *LANGUAGE FUNCTION no significant aphasia or dysarthia was noted. *FUND OF KNOWLEDGE aware of current events, past history, vocabulary *MENTAL She is attentive and able to concentrate and follow commands, she has appropriate insight and good judgement. *CN II optic fundi were normal, no papilledema noted. *CN III,IV, PERRLA extraocular eye movements were full, no nystagmus and no ptosis noted. *CN V shows normal sensation and jaw opens symmetrically. *CN VII shows normal facial movement symmetrically, upper and lower bilaterally. *CN VIII shows no significant hearing loss on examination in the office. *CN IX,,X palate elevated symmetrically and normal gag reflex was noted. *CN XI normal strength in the sternocleidomastoid muscles, symmetrical shoulder shrugging. *CN XII tongue protruded in the midline, with normal strength and movement. *SENSORY EXAMINATION Light touch intact *REFLEXES: deep tendon reflexes were normal and symmetrical , grade 2/4 diffusely, no pathological reflexes were noted. *CEREBELLAR TESTING normal finger to nose, heel/knee/strauss *PAIN LEVEL 0/10 Results - Laboratory Findings CBC and BMP: 07/04/18 05:31 07/04/18 05:31 Abnormal lab findings: Abnormal lab results WBC 12.3 K/mcL (4.3-11.1) H 07/04/18 05:31 RBC 4.18 M/mcL (4.19-5.50) L 07/04/18 05:31 Hgb 12.3 g/dL (12.9-16.9) L 07/04/18 05:31 Neutrophils # 9.5 K/mcL (1.6-8.9) H 07/04/18 05:31 BUN 53 mg/dL (8-23) H 07/04/18 05:31 Creatinine 6.29 mg/dL (0.70-1.30) H 07/04/18 05:31 Est GFR ( Amer) 11 (> 60) L 07/04/18 05:31 Est GFR (Non-Af Amer) 9 (> 60) L 07/04/18 05:31 Glucose 137 mg/dL (70-105) H 07/04/18 05:31 POC Glucose 119 mg/dL (70-99) H 07/04/18 05:14 Calculated Osmolality 311 (280-300) H 07/04/18 05:31 Phosphorus 5.6 mg/dL (2.7-4.5) H 07/04/18 05:31 AST 12 Units/L (13-39) L 07/01/18 15:33 Troponin I 0.06 ng/mL (< 0.04) H* 07/02/18 01:58 B-Natriuretic Peptide 1310 pg/mL (Less than 100) H 07/01/18 15:33 Serum Total Protein 5.9 g/dL (6.4-8.9) L 07/01/18 15:33 Ur Specific [place] 1.007 (1.010-1.025) L 07/01/18 16:56 Urine Protein >=300 mg/dL (Neg-Trace) H 07/01/18 16:56 Urine Ketones Trace mg/dL (Negative) H 07/01/18 16:56 Ur Squamous Epith Cells Many per lpf (None-Few) H 07/01/18 16:56 Salicylates < 2.5 mg/dL (15.0-30.0) L 07/01/18 18:37 Acetaminophen < 10 mcg/mL (10-20) L 07/01/18 18:37 Hep Bs Antibody < 3.10 mIU/mL (10.00-) L 07/02/18 14:53 Consult Discharge Plan - Plan Referrals: NONE,PCP [Primary Care Provider] -
--- NOTE | 2018-07-04 13:03 | Psychiatry Progress Note ---
Date of Encounter: 07/05/18 Time of Encounter: 12:35 Subjective Interval history: 06/04/18: Attending: Patient is very sedated this morning. He would squeeze my fingers on command but otherwise was not talking or opening his eyes. Per nursing staff his blood pressure has been elevated. 06/03/18:Resident: Over the last few days, patient has shown some violent actions towards staff. Dialysis was attempted on patient today. Reports state he was somewhat restless during dialysis, resulting in the need for a sitter, but he was not combative, physically violent, or harmful to himself. Nursing staff today denies violent behaviors. IV Diazepam was started last night, with notes stating that after the admission to Diazepam, that he was nodding to nursing staff's questions, showing possible improvement with the medications. He was not given his morning dose. Today, patient was seen coming back from dialysis. He was awake but not responding to spoken word, touching, or to nail bed pressure. He did reposition from back to side but did nothing else. He was not responsive to several questions asking for actions or answers (such as "What is your name?"). He did not exhibit posturing, or resistance to movement. When attempting to posture the patient, he would let his arm and leg fall. though with mild control of the fall. Patient has not taken food or POs since admission. Review of Systems Psychiatric: Reports: change in appetite, confusion, other (decreased activity and responsiveness) Results - Vital Signs Vital Signs: Temp Pulse Resp BP Pulse Ox 97.8 F 77 19 191/97 98 07/04/18 12:51 07/04/18 12:51 07/04/18 12:51 07/04/18 12:51 07/04/18 12:51 - Labs Labs: Laboratory Results - last 24 hr 07/03/18 07/03/18 07/03/18 05:47 11:42 17:43 WBC RBC Hgb Hct MCV MCH MCHC RDW Plt Count MPV Immature Gran % Seg Neutrophils % Lymphocytes % Monocytes % Eosinophils % Basophils % Neutrophils # Lymphocytes # Monocytes # Eosinophils # Basophils # Sodium Potassium Chloride Carbon Dioxide BUN Creatinine Est GFR ( Amer) Est GFR (Non-Af Amer) BUN/Creatinine Ratio Glucose POC Glucose 91 111 H 149 H Calculated Osmolality Calcium Phosphorus 07/03/18 07/04/18 07/04/18 23:26 05:14 05:31 WBC 12.3 H RBC 4.18 L Hgb 12.3 L Hct 38.0 MCV 90.9 MCH 29.4 MCHC 32.4 RDW 13.4 Plt Count 237 MPV 9.9 Immature Gran % 0.4 Seg Neutrophils % 77.2 Lymphocytes % 14.9 Monocytes % 7.0 Eosinophils % 0.3 Basophils % 0.2 Neutrophils # 9.5 H Lymphocytes # 1.8 Monocytes # 0.9 Eosinophils # 0.0 Basophils # 0.0 Sodium Potassium Chloride Carbon Dioxide BUN Creatinine Est GFR ( Amer) Est GFR (Non-Af Amer) BUN/Creatinine Ratio Glucose POC Glucose 166 H 119 H Calculated Osmolality Calcium Phosphorus 07/04/18 05:31 WBC RBC Hgb Hct MCV MCH MCHC RDW Plt Count MPV Immature Gran % Seg Neutrophils % Lymphocytes % Monocytes % Eosinophils % Basophils % Neutrophils # Lymphocytes # Monocytes # Eosinophils # Basophils # Sodium 142 Potassium 3.9 Chloride 103 Carbon Dioxide 25 BUN 53 H Creatinine 6.29 H Est GFR ( Amer) 11 L Est GFR (Non-Af Amer) 9 L BUN/Creatinine Ratio 8 Glucose 137 H POC Glucose Calculated Osmolality 311 H Calcium 9.5 Phosphorus 5.6 H - Impressions ITS Impressions Chest X-Ray 07/01/18 15:17 IMPRESSION: Negative portable chest. D/ / Yadiel Haskins MD / Yadiel Haskins MD Interpreting Provider: Yadiel Haskins MD Cervical Spine CT 07/01/18 15:18 IMPRESSION: No acute abnormality of the cervical spine. D/ / Brant Barnett MD / Brant Barnett MD Interpreting Provider: Brant Barnett MD Head CT 07/01/18 15:18 IMPRESSION: Stable appearance of the brain with no acute intracranial abnormality. There is age-appropriate cerebral atrophy with evidence of chronic periventricular small vessel ischemic disease. Chronic left maxillary sinusitis. D/ / Justin Villalobos MD / Justin Villalobos MD Interpreting Provider: Justin Villalobos MD Assessment and Plan (1) Acute encephalopathy Current visit: Yes Status: Acute Plan: Continue hospitalization, Close observation Additional Plan: I examined this patient and my medical decision-making was reviewed with the Resident Physician. I agree with the documented findings, disposition and treatment plan as described except to the extent set forth below. -It seems patient did not have a significant response with that benzodiazepine as would be expected in a catatonic patient. Patient's catatonia they typically become verbal with a similar dose of a benzodiazepine. Given his sedation I would recommend discontinuing the Valium at this time and using only when necessary if needed for agitation. -Continue Haloperidol 5mg IV QHS for psychosis is not too sedated. -Recommend continuous cardiac monitoring, which is already ordered, due to Antipsychotic administration -Continue attempts to improve kidney function, as this issue can also be the cause of mental status changes -Will continue to monitor Risks, benefits, side effects, alternatives discussed w/pt: No (no changes made) Patient agreeable to treatment: No (unable to respond) Consult Discharge Plan - Plan Referrals: NONE,PCP [Primary Care Provider] - Psychiatry Exam - Constitutional Vitals: Temp Pulse Resp BP Pulse Ox 97.8 F 77 19 191/97 98 07/04/18 12:51 07/04/18 12:51 07/04/18 12:51 07/04/18 12:51 07/04/18 12:51 General appearance: age & developmentally appropriate, average - Musculoskeletal Station: relaxed - Psychiatric Patient Orientation: Yes Other (non-verbal) Level of alertness: Sedated, Follows commands Behavior: calm Psychomotor activity: Catatonic (possibly) Eye Contact: No Eye Contact Mood Description: Other Patient description of mood: non-verbal, flat Affect description: flat Speech Volume: No speech Speech pattern: non-verbal Language & Vocabulary: other (non-verbal) Thought Content: Yes Poverty of Content Perceptual Disturbances: No Reacting to internal stimuli Attention Span Ability: Unable to Focus, Unable to Sustain Attention Patient Reliability: Not Reliable Historian Fund of knowledge: No abstraction ability Judgment: Poor Insight: None
[2018-07-04] MEDS: niCARdipine 40 MG/200 ML MLS IVC SCH ×2 (13:44→20:54)
--- NOTE | 2018-07-04 16:23 | Internal Med Progress Note ---
Hospitalist Progress Note - Encounter Date of Encounter: 07/04/18 Time of Encounter: 11:10 - Subjective Interval History: Visited with him during HD. Still not answering questions. But staring at me when I call his name. He would hold hand of the sitter at bedside. Has some spontaneous purposeful movements. Does not follow commands. - Exam Vitals: Temp Pulse Resp BP Pulse Ox 97.8 F 77 19 167/85 98 07/04/18 12:51 07/04/18 12:51 07/04/18 12:51 07/04/18 15:41 07/04/18 12:51 Exam: General: Patient is alert, but not following commands Respiratory: Good respiratory effort. Normal breath sounds. No wheezing or crackles. Cardiovascular: Regular rate and rhythm. s1 and s2 normal No clicks, rubs, gallops, or murmurs. No pedal edema Abdomen: Abdomen is soft, nontender. Bowel sounds are present Musculoskeletal: Spontaneously moving all extremities Skin: warm, dry, intact. Neuro: Remains nonresponsive to verbal commands. Does appear to recognize that I am calling his name. Has spontaneous purposeful and nonpurposeful movements. - Assessment and Plan (1) Hypertensive urgency Current Visit: Yes Status: Acute Assessment and Plan: Patient's blood pressure continues to be severely elevated. Started nicardipine drip. Patient transferred to [facility]. (2) Acute encephalopathy Current Visit: Yes Status: Acute Assessment and Plan: No significant improvement in patient's overall condition. Psychiatric consult appreciated. Patient did appear to have mild response to diazepam last night. We will follow psychiatric recommendations. Also consulted neurology for any further recommendations. Will continue to monitor and treat underlying medical conditions. Aggressive control of blood pressure with intravenous Cardizem. Continue dialysis per nephrology recommendations. (3) Diabetes Current Visit: Yes Status: Chronic Assessment and Plan: Fairly controlled. Patient did have strawberry ice cream this morning. We will continue to monitor blood sugars. (4) Congestive heart failure (CHF) Current Visit: Yes Status: Chronic Assessment and Plan: not in acute exacerbation. Continue Lasix and dialysis (5) Elevated troponin Current Visit: Yes Status: Acute Assessment and Plan: Adynamic. Likely due to end-stage renal disease. (6) Hypertension Current Visit: Yes Status: Chronic (7) Goals of care, counseling/discussion Current Visit: Yes Status: Acute Assessment and Plan: Discussed patient's condition and plan of care with patient's niece who is the DPOA. She explained to me patient's baseline status and how long he appeared to worsened since beginning dialysis. He apparently did not like being on dialysis once he started dialysis and mentioned many times about stopping dialysis. He has not been taking his medications at the nursing facility for several days now. He has also not been eating much. I discussed with her about goals of care in case patient's condition did not improve. She said she will talk to her mother but was leaning towards stopping dialysis if this were to continue. We will consult palliative care to help make further decisions. DVT Prophylaxis: On subcutaneous heparin - Time Spent with Patient Total time spent is greater than 50% in coordination of care (as documented) at patient's floor/unit and/or counseling patient: Internal Medicine: Result - Labs CBC & Chem 7: 07/04/18 05:31 07/04/18 05:31 Labs: Short CBC 07/04/18 Range/Units 05:31 WBC 12.3 H (4.3-11.1) K/mcL Hgb 12.3 L (12.9-16.9) g/dL Hct 38.0 (37.5-50.1) % Plt Count 237 (140-400) K/mcL Neutrophils # 9.5 H (1.6-8.9) K/mcL BMP 07/04/18 05:31 Sodium 142 Potassium 3.9 Chloride 103 Carbon Dioxide 25 BUN 53 H Creatinine 6.29 H Glucose 137 H Calcium 9.5 - ABG Interpretation ABG results: PT/INR, D-dimer PT 11.3 Seconds (9.4-12.1) 07/01/18 15:33 Consult Discharge Plan - Plan Referrals: NONE,PCP [Primary Care Provider] - (3) Diabetes Qualifiers: Diabetes mellitus type: type 2 Diabetes mellitus half-way insulin use: without half-way use Diabetes mellitus complication status: with kidney complications Diabetes mellitus complication detail: with chronic kidney disease Chronic kidney disease stage: on chronic dialysis Qualified Code(s): E11.22 - Type 2 diabetes mellitus with diabetic chronic kidney disease; N18.6 - End stage renal disease; Z99.2 - Dependence on renal dialysis (4) Congestive heart failure (CHF) Qualifiers: Heart failure type: unspecified Heart failure chronicity: unspecified Qualified Code(s): I50.9 - Heart failure, unspecified (6) Hypertension Qualifiers: Hypertension type: essential hypertension Qualified Code(s): I10 - Essential (primary) hypertension
[2018-07-04] MEDS: Melatonin 3 MG TABLET PO SCH (19:45)
[2018-07-04] MEDS: Haloperidol Lactate 5 MG/ML VIAL IVP SCH (22:17)
[2018-07-05] MEDS: niCARdipine 40 MG/200 ML MLS IVC SCH ×2 (03:30→08:40)
[2018-07-05] MEDS: *HR* Heparin 5,000 UNIT/ML VIAL SQ SCH ×2 (05:32→18:45)
[2018-07-05] MEDS: Insulin LISPRO 300 UNITS/3 ML VIAL SQ SCH ×3 (05:39→18:43)
[2018-07-05 06:11] LABS: Basophils % 0.1 %; Eosinophils % 0.2 %; Hematocrit 37.7 % (37.5-50.1); Hemoglobin 12.4 g/dL (12.9-16.9); Immature Granulocytes % 0.5 % (0-4); Lymphocytes # 1.7 K/mcL (0.6-4.6); Lymphocytes % 11.6 %; Mean Corpuscular HGB Conc 32.9 g/dL (31.6-35.5); Mean Corpuscular Hemoglobin 29.9 pg (28.0-33.3); Mean Corpuscular Volume 90.8 fL (83.0-100.0); Mean Platelet Volume 10.4 fL (9.4-12.4); Monocytes # 0.8 K/mcL (0.0-1.3); Monocytes % 5.1 %; Neutrophils # 12.1 K/mcL (1.6-8.9); Platelet Count 220 K/mcL (140-400); Red Blood Count 4.15 M/mcL (4.19-5.50); Red Cell Distribution Width 13.7 % (11.5-14.5); Segmented Neutrophils % 82.5 %
[2018-07-05 06:24] LABS: Calcium 9.3 mg/dL (8.6-10.3); Potassium 4.2 mEq/L (3.5-5.1)
[2018-07-05] MEDS: Aspirin 81 MG TAB.CHEW PO SCH (08:57)
[2018-07-05] MEDS: Calcium Acetate 667 MG CAPSULE PO SCH ×3 (08:57→18:33)
[2018-07-05] MEDS: Folic Acid 1 MG TABLET PO SCH (08:58)
[2018-07-05] MEDS: Furosemide 40 MG TABLET PO SCH (08:59)
[2018-07-05] MEDS: amLODIPine 5 MG TABLET PO SCH (09:00)
[2018-07-05] MEDS ORDERED: 0.9 % Sodium Chloride 500 ML ONE (09:24)
[2018-07-05] MEDS: diazePAM 10 MG/2 ML SYRINGE IVP SCH (09:42)
[2018-07-05] MEDS: BuPROPion SR (12 HR) 100 MG TABLET PO SCH ×2 (09:42→20:40)
--- NOTE | 2018-07-05 11:29 | Palliative - Consult Note ---
Date of Encounter: 07/05/18 Time of Encounter: 10:00 - Assessment and Plan (1) Goals of care, counseling/discussion Current Visit: Yes Status: Acute Assessment and plan: Patient was unable to participate in GOC discussion. Called and reached pt's niece Tona. Tona states pt has a sister that is Tona's mother and a mentally disabled brother. There are no other family members. Noted that in pt's chart we have a durable power of admitted attorneys for financial decisions but not medical. Tona stated that she does have a medical power of admitted attorneys, and that she will discuss all decisions with pt's sister anyway. Discussed pt's current medical condition, imaging and test reviewed, attempted treatments and prognosis. Tona noted that pt was never agreeable to HD. Pt has been declining for the last 2 months, and have been refusing food for about 3 weeks. He had told Tona that he was ready to "go home". Tona believes it is time to discontinue HD, but would like today to discuss with pt's sister. Discussed code status, she agreed to change code status to DNRCC while she discusses further GOC with family. Follow up phone call tomorrow at 11am. (2) Acute encephalopathy Current Visit: Yes Status: Acute Assessment and plan: ethiology uncertain, MRI was negative. Neurology and psychiatry appreciated. Continue Haldol 5 mg qhs scheduled continue Bupropion (3) ESRD (end stage renal disease) on dialysis Current Visit: Yes Status: Acute Assessment and plan: s/p HD yesterday, next HD scheduled for Saturday. Family to decide on continuation of HD. Palliative-CN HPI - Data of Consult Patient: new to practice Consult date: 07/05/18 Requesting Physician: Arian Dunlap MD Primary Care Provider: PCP NONE - Consult Narrative Palliative Care/Comfort Measures: Palliative care Reason for consult: Goals of care History of present illness: Mr. Gomez is a 73 year old male with PMH of schizophrenia, ESRD on HD, was sent from the psychiatry office due to AMS and confusion. At the time of exam pt was not speaking or responding to stimuli. Psychiatry and neurology were consulted, no neurological causes of change in mental status found thus far, metabolically stable, s/p HD. Palliative care consult for GOC discussion. At the time of exam, pt was lethargic, opens eyes to name calling, does not follow commands. Non verbal. Per pt's niece reached over the phone, pt has been worsening for the last 2 months, and he stopped eating about 2 weeks before admission. Pt does not appear in acute distress. CC: Arian Dunlap MD - Time Spent with Patient Time: Total time spent is greater than 50% in coordination of care (as documented) at patient's floor/unit and/or counseling patient: Time with patient: 45 minutes Past Med Surg Social Fam HX - Past Medical History Medical history: arthritis, asthma, CHF, dementia, diabetes, dialysis, hyperlipidemia, hypertension, renal disease Additional medical history: Oral dysphagia from previous stroke Psychiatric history: anxiety, bipolar, depression, schizophrenia, other (d ementia) - Past Surgical History Surgical History: vascular surgery (Dialysis shunt), other Additional surgical history: FATTY TUMOR REMOVED FROM BACK. DIALYSIS FISTULA RT ARM. - Social History Smoking Status: Former smoker Smokeless Tobacco Status: No Alcohol use: unknown Drug use: unknown Medications and Allergies Trihexyphenidyl [Artane] 5 mg PO HS 02/19/15 [History] Furosemide [Lasix] 40 mg PO DAILY #2 tab 09/29/16 [Rx] Insulin Glargine,Hum.rec.anlog [Lantus Solostar] 15 unit SQ HS 04/25/17 [History] Potassium Chloride [Klor-Con 10] 10 meq PO BID 04/25/17 [History] Ascorbate Calcium [Vitamin C] 500 mg PO DAILY 06/23/17 [History] Haloperidol [Haldol] 5 mg PO HS 06/23/17 [History] Folic Acid 0.4 mg PO DAILY 10/04/17 [History] Tamsulosin [Flomax] 0.4 mg PO DAILY 11/15/17 [History] Losartan [Cozaar] 50 mg PO BID 4 Days #16 tablet 11/21/17 [Rx] cloNIDine HCl [CloNIDine HCl] 0.3 mg PO TID 4 Days #36 tablet 11/21/17 [Rx] Aspirin 81 mg PO Q48H #0 12/03/17 [Rx] Linagliptin [Tradjenta] 5 mg PO DAILY 06/30/18 [History] Melatonin 5 mg PO HS 06/30/18 [History] amLODIPine [Norvasc] 10 mg PO DAILY 06/30/18 [History] Acetaminophen [Tylenol] 650 mg PO Q4H PRN 07/01/18 [History] Atorvastatin [Lipitor] 10 mg PO HS 07/01/18 [History] BuPROPion SR (12 HR) [Wellbutrin SR] 100 mg PO BID 07/01/18 [History] Calcium Acetate [Phos-LO] 2,001 mg PO TIDWM 07/01/18 [History] Doxazosin [Cardura] 8 mg PO HS 07/01/18 [History] GuaiFENesin/Dextromethorphan [Robitussin/DM] 10 ml PO Q6HR PRN 07/01/18 [History] Lidocaine/Prilocaine CREAM [Emla] 5 gm TP MOWEFR 07/01/18 [History] Magnesium Hydroxide [Milk of Magnesia] 400 mg PO DAILY PRN 07/01/18 [History] Allergy/AdvReac Type Severity Reaction Status Date / Time Penicillins [PCN] Allergy Anaphylaxis Verified 04/25/17 18:58 Thiopental [From Pentothal] Allergy Anaphylaxis Verified 04/25/17 18:58 lisinopril AdvReac Cough Verified 04/25/17 18:58 Metolazone AdvReac See Verified 04/25/17 18:58 Comments ROS unobtainable: due to mental status Palliative Care-Exam - Constitutional Vitals: Temp Pulse Resp BP Pulse Ox 97.9 F 96 16 169/82 97 07/05/18 07:12 07/05/18 07:12 07/05/18 07:12 07/05/18 07:12 07/05/18 07:12 Exam: General: Patient remains lethargic and nonresponsive to questions. Respiratory: Coarse breath sounds bilaterally Cardiovascular: Regular rate and rhythm. s1 and s2 normal No clicks, rubs, gallops, or murmurs. No pedal edema Abdomen: Abdomen is soft, nontender. Bowel sounds are present Musculoskeletal: Nonpurposeful spontaneous movements Skin: warm, dry, intact. Neuro: Does not follow commands. Psych: Flat affect, no purposeful movement. Internal Medicine - CN: Reslt - Labs CBC & Chem 7: 07/05/18 05:45 07/05/18 05:45 Labs: Short CBC 07/05/18 Range/Units 05:45 WBC 14.7 H (4.3-11.1) K/mcL Hgb 12.4 L (12.9-16.9) g/dL Hct 37.7 (37.5-50.1) % Plt Count 220 (140-400) K/mcL Neutrophils # 12.1 H (1.6-8.9) K/mcL BMP 07/05/18 05:45 Sodium 137 Potassium 4.2 Chloride 102 Carbon Dioxide 25 BUN 45 H Creatinine 4.99 H Glucose 152 H Calcium 9.3 - ABG Interpretation ABG results: PT/INR, D-dimer PT 11.3 Seconds (9.4-12.1) 07/01/18 15:33 - Impressions Impressions Brain MRI 07/04/18 12:01 IMPRESSION: Severely motion degraded study. No acute abnormality identified. Volume loss with moderate chronic white matter microvascular ischemic change. D/ / Francois Metzger MD / Francois Metzger MD Interpreting Provider: Francois Metzger MD Consult Discharge Plan - Plan Referrals: NONE,PCP [Primary Care Provider] - Palliative Quality Palliative Quality: Screen for Code Status: Yes, Screen for Goals of Care: Yes, Screen for Pain: Yes, If Pain Regimen Started, Initiate Bowel Regimen: NA, Screen for Nausea/Vomitting: Yes Code Status: 07/02/18 01:49 Resuscitation Status: Active [RES] Routine Comment: Resuscitation Status: Full Code
--- NOTE | 2018-07-05 11:32 | Nephrology Progress Note ---
Date of Encounter: 07/05/18 Time of Encounter: 12:00 - Assessment and Plan (1) ESRD (end stage renal disease) on dialysis Current Visit: Yes Status: Acute s/p HD yesterday, will not need HD again till saturday Lytes stable Renal diet advised (2) Acute encephalopathy Current Visit: Yes Status: Acute Per team; neurology, psych and primary. Not uremic (3) History of schizophrenia Current Visit: Yes Status: Acute per psych (4) Hypertension Current Visit: Yes Status: Acute stable Subjective Principal diagnosis: AMS Interval history: Interim noted,pt with PMH of psych issues including schizophrenia, ESRD on HD dialyzed yesterday uneventfully with altered mental status with neurology and psych on board. Pt seen and examined resting comfortably but hard to arouse. Nurse at bedside. On Dw% per primary team since not eating Objective - Vital Signs Vital signs: Vital Signs Temp Pulse Resp BP Pulse Ox 07/05/18 08:00 92 07/05/18 07:12 97.9 F 96 16 169/82 97 07/05/18 07:00 96 07/05/18 05:00 85 155/81 07/05/18 04:00 83 154/82 07/05/18 03:10 98.2 F 100 16 160/89 97 07/05/18 03:00 101 160/89 07/05/18 02:00 84 161/82 07/05/18 01:30 86 161/87 07/05/18 01:00 85 167/97 07/05/18 00:30 81 173/86 07/05/18 00:15 76 173/93 07/05/18 00:14 179/98 07/04/18 23:45 76 175/99 07/04/18 23:35 165/92 07/04/18 23:21 98.5 F 87 14 186/106 97 07/04/18 23:00 88 177/102 07/04/18 22:00 84 158/94 07/04/18 20:15 97.9 F 91 16 149/82 99 07/04/18 20:00 81 151/87 07/04/18 19:00 88 167/84 07/04/18 18:00 152/78 07/04/18 17:00 152/83 07/04/18 16:19 98.4 F 91 18 155/85 97 07/04/18 16:00 147/96 07/04/18 15:41 167/85 07/04/18 14:00 178/90 07/04/18 13:30 191/100 07/04/18 13:00 190/93 07/04/18 12:51 97.8 F 77 19 191/97 98 07/04/18 12:31 97.2 F L 16 157/89 07/04/18 12:10 120/83 07/04/18 11:50 161/99 07/04/18 11:35 123/92 Intake and Output 07/04/18 07/05/18 07/05/18 23:59 07:59 15:59 Intake Total 79.5 / 79.5 87.5 / 87.5 Balance 79.5 / 79.5 87.5 / 87.5 Intake: IV Fluids 79.5 / 79.5 87.5 / 87.5 Cardene Premix 40mg/200ml 40 mg 79.5 / 79.5 87.5 / 87.5 In 200 ml @ 5 MG/HR 25 mls/hr IVC .Q8H HARJEET Rx#:[id number] Other: Stool Size Moderate Small Stool Consistency loose loose Stool Color Brown Brown # Urine Diapers 1 # Bowel Movements 1 # Bowel Movement Diapers 1 Weight 69.9 kg Blood Glucose* 112 146 Patient Weight 07/05/18 23:59 Weight 69.9 kg - General Appearance General appearance: Present: chronically ill, fatigue EENT: Present: ATNC, mucous membranes dry Neck: Present: no JVD, supple Respiratory: Present: course breath sounds Cardiology: Present: no edema, normal S1, normal S2 Gastrointestinal: Present: no tenderness, no guarding Integumentary: Present: warm and dry Neurologic: Present: disoriented (when aroused from sleep) Musculoskeletal: Present: no deformities Additional Comments: unable to assess - Lab 07/06/18 05:58 07/06/18 05:58 Most recent lab results Calcium 9.3 mg/dL (8.6-10.3) 07/05/18 05:45 Phosphorus 5.6 mg/dL (2.7-4.5) H 07/04/18 05:31 Consult Discharge Plan - Plan Referrals: NONE,PCP [Primary Care Provider] -
[2018-07-05] MEDS: D5% in 0.45% NACL 1,000 ML IVC SCH (12:48)
--- NOTE | 2018-07-05 12:55 | Electrocardiograph Report ---
[place] [id number] Test Date: 2018-07-01 Pat Name: Heber Gomez Department: EXAM3 Room: 2N10 Gender: M Behavioral Therapy Coordinator: : 1945 Requested By: Ramón Kennedy Order Number: [id number] Reading MD: Nieves Godinez Measurements Intervals [place] Rate: 91 P: 0 ND: 118 QRS: 108 QRSD: 90 T: 26 QT: 367 QTc: 452 Interpretive Statements Sinus rhythm Borderline short ND interval Right axis deviation Consider left ventricular hypertrophy Electronically Signed On 07-05-2018 12:53:13 EST by Nieves Godinez
--- NOTE | 2018-07-05 13:26 | Neurology Progress Note ---
Date of Encounter: 07/05/18 Time of Encounter: 13:23 Assessment and Plan (1) Acute encephalopathy Current Visit: Yes Status: Acute I agree with the previous neurologic assessment by Dr. Ibrahim. There is no evidence to support a central nervous system disorder resulting in his encephalopathy. No evidence to suspect a central nervous system infectious, neoplastic, vascular, inflammatory process. I am doubtful of seizure here. No evidence to suspect neuroleptic malignant syndrome. Perhaps sedation could be playing a role as it was given benzodiazepines for treatment of the catatonia. In any regard I would recommend considering discontinuation of the trihexyphenidyl. There is no nuchal rigidity therefore not convinced that lumbar puncture will be of any value. He does seem to be a bit congested therefore consider chest x-ray and septic workup. I would consider giving Romazicon to reverse the effects of the benzodiazepines to see if this helps him to come more responsive. Otherwise I will follow peripherally. May consider EEG in the near future to rule out nonconvulsive status. Will follow peripherally. Greater than 45 minutes was s pent with this patient with greater than 50% of that time being spent in [id number] contact which consisted of examination and coordinating care. Subjective Principal diagnosis: AMS Interval history: The chart was reviewed, the patient was seen and examined. Essentially no change in this patient's baseline neurologic status. He remains somnolent however does open his eyes and makes eye contact to voice stimuli. He will follow simple commands such as squeeze my hands. He squeezes symmetrically with both upper extremities. He seems to have decreased tone of both lower extremities. However no focal deficits are present. Intense chart review finds that he is not febrile, I did review his med list one might consider dis continuing trihexyphenidyl may result in some confusion due to its anticholinergic effects. However he does sound very congested. I also recommend septic workup. I he is not rigid therefore am doubtful of neuroleptic malignant syndrome. Although the MRI scan of the brain was degraded by artifact ual content due to movement, I see no evidence of hydrocephalus or acute infarct. And his examination finds no focal or lateralized deficits. There is no clonus. He has no nuchal rigidity. Does not have an elevated white count. He does have kidney dysfunction which is known. Objective - Constitutional Vitals: Temp Pulse Resp BP Pulse Ox 97.9 F 93 18 169/84 96 07/05/18 07:12 07/05/18 10:00 07/05/18 10:00 07/05/18 08:00 07/05/18 10:00 Examination: The neurological examination is limited by the patient's alteration in mental status. General Examination *GENERAL APPEARANCE OF PATIENT ill-appearing elderly male *EYES: pupils equal, round, reactive to light and accommodation, conj unctiva clear without masses or ulcerations, fundi normal. *CARDIOVASCULAR RRR, S1, S2, no mumurs, rubs, or gallops, no peripheral edema, distal temperature normal, dorsalis pedis pulses normal. Musculoskeletal: *ASSESSMENT OF MUSCLE STRENGTH IN THE UPPER AND LOWER EXTREMITIES for the most part he does not follow commands therefore I am unable to assess muscle strength or Station and gait. However, patient does have non-spastic spontaneous movement of all 4 extremities. He will squeeze hands to command. *MUSCLE TONE IN THE UPPER AND LOWER EXTREMITIES normal. No abnormal movements, fasciculations or atrophy identified. Neurological: *ORIENTATION altered mental state, nonverbal *RECURRENT AND REMOTE MEMORY intact *ATTENTION AND CONCENTRATION altered, inattentive and nonverbal *MENTAL attention span and concentration normal are altered with acute encephalopathy *CN II optic fundi were normal, no papilledema noted. *CN III,IV, PERRLA, denies movement symmetrically horizontally; able to follow voice from left to right, no ptosis noted. *SENSORY EXAMINATION no response to noxious or painful stimuli; due to encephalopathic state *REFLEXES: deep tendon reflexes were normal and symmetrical , grade 2/4 diffusely, no pathological reflexes were noted. . *PAIN LEVEL Results - Laboratory Findings CBC and BMP: 07/05/18 05:45 07/05/18 05:45 Abnormal lab findings: Abnormal lab results WBC 14.7 K/mcL (4.3-11.1) H 07/05/18 05:45 RBC 4.15 M/mcL (4.19-5.50) L 07/05/18 05:45 Hgb 12.4 g/dL (12.9-16.9) L 07/05/18 05:45 Neutrophils # 12.1 K/mcL (1.6-8.9) H 07/05/18 05:45 BUN 45 mg/dL (8-23) H 07/05/18 05:45 Creatinine 4.99 mg/dL (0.70-1.30) H 07/05/18 05:45 Est GFR ( Amer) 14 (> 60) L 07/05/18 05:45 Est GFR (Non-Af Amer) 11 (> 60) L 07/05/18 05:45 Glucose 152 mg/dL (70-105) H 07/05/18 05:45 POC Glucose 144 mg/dL (70-99) H 07/05/18 04:03 Phosphorus 5.6 mg/dL (2.7-4.5) H 07/04/18 05:31 AST 12 Units/L (13-39) L 07/01/18 15:33 Troponin I 0.06 ng/mL (< 0.04) H* 07/02/18 01:58 B-Natriuretic Peptide 1310 pg/mL (Less than 100) H 07/01/18 15:33 Serum Total Protein 5.9 g/dL (6.4-8.9) L 07/01/18 15:33 Ur Specific [place] 1.007 (1.010-1.025) L 07/01/18 16:56 Urine Protein >=300 mg/dL (Neg-Trace) H 07/01/18 16:56 Urine Ketones Trace mg/dL (Negative) H 07/01/18 16:56 Ur Squamous Epith Cells Many per lpf (None-Few) H 07/01/18 16:56 Salicylates < 2.5 mg/dL (15.0-30.0) L 07/01/18 18:37 Acetaminophen < 10 mcg/mL (10-20) L 07/01/18 18:37 Hep Bs Antibody < 3.10 mIU/mL (10.00-) L 07/02/18 14:53 Consult Discharge Plan - Plan Referrals: NONE,PCP [Primary Care Provider] -
--- NOTE | 2018-07-05 14:06 | Internal Med Progress Note ---
Hospitalist Progress Note - Encounter Date of Encounter: 07/05/18 Time of Encounter: 11:15 - Subjective Interval History: Patient is more lethargic today. Remains nonresponsive to questions. Continues to refuse meds. He has not eaten anything either. No improvement with Valium. - Exam Vitals: Temp Pulse Resp BP Pulse Ox 97.9 F 93 18 169/84 96 07/05/18 07:12 07/05/18 10:00 07/05/18 10:00 07/05/18 08:00 07/05/18 10:00 Exam: General: Patient remains lethargic and nonresponsive to questions. Respiratory: Coarse breath sounds bilaterally Cardiovascular: Regular rate and rhythm. s1 and s2 normal No clicks, rubs, gallops, or murmurs. No pedal edema Abdomen: Abdomen is soft, nontender. Bowel sounds are present Musculoskeletal: Nonpurposeful spontaneous movements Skin: warm, dry, intact. Neuro: Does not follow commands. Psych: Flat affect, appears catatonic. - Assessment and Plan (1) Hypertensive urgency Current Visit: Yes Status: Acute Assessment and Plan: Remains on the Cardizem drip as patient is not taking his oral medications. High risk for complications. (2) Acute encephalopathy Current Visit: Yes Status: Acute Assessment and Plan: Etiology remains uncertain. Does have leukocytosis but no nuchal rigidity noted. Chest x-ray shows no acute infiltrate. Not significantly uremic. Did undergo hemodialysis yesterday. Neurology and psychiatry input appreciated. Palliative care on board to help with deciding how to proceed from this point forward if patient's condition does not improve. If he remains somnolent and lethargic, we will place him on D5 half NS. (3) Diabetes Current Visit: Yes Status: Chronic Assessment and Plan: Patient has not eaten anything today. We will continue to monitor blood sugars. Place patient on D5 half NS (4) Congestive heart failure (CHF) Current Visit: Yes Status: Chronic Assessment and Plan: Volume management with dialysis. Patient not taking his oral medications. (5) Elevated troponin Current Visit: Yes Status: Acute Assessment and Plan: Adynamic. Likely due to end-stage renal disease (6) Hypertension Current Visit: Yes Status: Chronic Assessment and Plan: Hypertensive urgency. On intravenous Cardene drip. Target systolic blood pressure of 160. (7) Goals of care, counseling/discussion Current Visit: Yes Status: Acute Assessment and Plan: Palliative care consult appreciated. We will continue to defer to family to help guide further management. - Time Spent with Patient Total time spent is greater than 50% in coordination of care (as documented) at patient's floor/unit and/or counseling patient: Internal Medicine: Result - Labs CBC & Chem 7: 07/05/18 05:45 07/05/18 05:45 Labs: Short CBC 07/05/18 Range/Units 05:45 WBC 14.7 H (4.3-11.1) K/mcL Hgb 12.4 L (12.9-16.9) g/dL Hct 37.7 (37.5-50.1) % Plt Count 220 (140-400) K/mcL Neutrophils # 12.1 H (1.6-8.9) K/mcL BMP 07/05/18 05:45 Sodium 137 Potassium 4.2 Chloride 102 Carbon Dioxide 25 BUN 45 H Creatinine 4.99 H Glucose 152 H Calcium 9.3 - ABG Interpretation ABG results: PT/INR, D-dimer PT 11.3 Seconds (9.4-12.1) 07/01/18 15:33 - Impressions Impressions Brain MRI 07/04/18 12:01 IMPRESSION: Severely motion degraded study. No acute abnormality identified. Volume loss with moderate chronic white matter microvascular ischemic change. D/ / Francois Metzger MD / Francois Metzger MD Interpreting Provider: Francois Metzger MD Chest X-Ray 07/05/18 11:03 IMPRESSION: No acute process. Stable exam. D/ / Stiven Yu MD / Stiven Yu MD Interpreting Provider: Stiven Yu MD Consult Discharge Plan - Plan Referrals: NONE,PCP [Primary Care Provider] - __ (3) Diabetes Qualifiers: Diabetes mellitus type: type 2 Diabetes mellitus [facility] insulin use: without penitentiary use Diabetes mellitus complication status: with kidney complications Diabetes mellitus complication detail: with chronic kidney disease Chronic kidney disease stage: on chronic dialysis Qualified Code(s): E11.22 - Type 2 diabetes mellitus with diabetic chronic kidney disease; N18.6 - End stage renal disease; Z99.2 - Dependence on renal dialysis (4) Congestive heart failure (CHF) Qualifiers: Heart failure type: unspecified Heart failure chronicity: unspecified Qualified Code(s): I50.9 - Heart failure, unspecified (6) Hypertension Qualifiers: Hypertension type: essential hypertension Qualified Code(s): I10 - Essential (primary) hypertension
[2018-07-05] MEDS: Haloperidol Lactate 5 MG/ML VIAL IVP SCH (20:39)
[2018-07-05] MEDS: Melatonin 3 MG TABLET PO SCH (20:40)
[2018-07-06] MEDS: Insulin LISPRO 300 UNITS/3 ML VIAL SQ SCH ×4 (01:59→18:38)
[2018-07-06] MEDS: niCARdipine 40 MG/200 ML MLS IVC SCH (02:00)
[2018-07-06] MEDS: *HR* Heparin 5,000 UNIT/ML VIAL SQ SCH ×2 (06:11→18:46)
[2018-07-06 06:23] LABS: Basophils % 0.3 %; Eosinophils # 0.2 K/mcL (0.0-0.6); Eosinophils % 1.5 %; Hematocrit 36.7 % (37.5-50.1); Hemoglobin 12.2 g/dL (12.9-16.9); Immature Granulocytes % 0.4 % (0-4); Lymphocytes # 2.1 K/mcL (0.6-4.6); Lymphocytes % 21.6 %; Mean Corpuscular HGB Conc 33.2 g/dL (31.6-35.5); Mean Corpuscular Hemoglobin 30.1 pg (28.0-33.3); Mean Corpuscular Volume 90.6 fL (83.0-100.0); Mean Platelet Volume 10.4 fL (9.4-12.4); Monocytes # 0.7 K/mcL (0.0-1.3); Monocytes % 7.5 %; Neutrophils # 6.7 K/mcL (1.6-8.9); Platelet Count 202 K/mcL (140-400); Red Blood Count 4.05 M/mcL (4.19-5.50); Red Cell Distribution Width 13.6 % (11.5-14.5); Segmented Neutrophils % 68.7 %
[2018-07-06 06:35] LABS: Calcium 9.2 mg/dL (8.6-10.3)
[2018-07-06] MEDS: Calcium Acetate 667 MG CAPSULE PO SCH ×3 (07:58→16:43)
[2018-07-06] MEDS: Folic Acid 1 MG TABLET PO SCH (07:59)
[2018-07-06] MEDS: amLODIPine 5 MG TABLET PO SCH (07:59)
[2018-07-06] MEDS: Furosemide 40 MG TABLET PO SCH (07:59)
[2018-07-06] MEDS: BuPROPion SR (12 HR) 100 MG TABLET PO SCH ×2 (08:00→21:05)
[2018-07-06] MEDS: D5% in 0.45% NACL 1,000 ML IVC SCH (10:47)
--- NOTE | 2018-07-06 13:39 | Internal Med Progress Note ---
Hospitalist Progress Note - Encounter Date of Encounter: 07/06/18 Time of Encounter: 13:37 - Subjective Interval History: Evaluated patient earlier today. No improvement in overall condition. His blood pressure has been better controlled. Remains somnolent and lethargic. Does not awake to sternal rub and according to nursing staff has been thicker to respond when he is awake. - Exam Vitals: Temp Pulse Resp BP Pulse Ox 97.5 F L 78 18 173/101 99 07/06/18 11:50 07/06/18 11:50 07/06/18 11:50 07/06/18 11:50 07/06/18 11:50 Exam: General: Patient is somnolent, not following commands. ENT: Mucous membranes are dry Respiratory: Good respiratory effort. Normal breath sounds. No wheezing or crackles. Cardiovascular: Regular rate and rhythm. s1 and s2 normal No clicks, rubs, gallops, or murmurs. No pedal edema Abdomen: Abdomen is soft, nontender. Bowel sounds are present Musculoskeletal: Spontaneously moving all extremities Skin: warm, dry, intact. Psych: Remains lethargic. Catatonic. - Assessment and Plan (1) Hypertensive urgency Current Visit: Yes Status: Acute Assessment and Plan: Improved with Cardene drip. We will try to wean down and use intravenous labetalol/hydralazine to control blood pressure. (2) Acute encephalopathy Current Visit: Yes Status: Acute Assessment and Plan: Multifactorial. Question of psychogenic versus other cause. No improvement overall. Palliative care following. CODE STATUS has been changed to DNR comfo rt care. (3) Diabetes Current Visit: Yes Status: Chronic Assessment and Plan: Blood sugars remain well controlled. Continue D5 infusion as patient is not eating. (4) Congestive heart failure (CHF) Current Visit: Yes Status: Chronic Assessment and Plan: Patient not taking his Lasix. Volume management with dialysis (5) Elevated troponin Current Visit: Yes Status: Acute Assessment and Plan: Adynamic. Most likely due to end-stage renal disease. No further workup needed. (6) Hypertension Current Visit: Yes Status: Chronic (7) Goals of care, counseling/discussion Current Visit: Yes Status: Acute Assessment and Plan: Currently DNR comfort care arrest. Palliative care following. Family is considering withdrawing from hemodialysis. - Time Spent with Patient Total time spent is greater than 50% in coordination of care (as documented) at patient's floor/unit and/or counseling patient: Internal Medicine: Result - Labs CBC & Chem 7: 07/06/18 05:58 07/06/18 05:58 Labs: Short CBC 07/06/18 Range/Units 05:58 WBC 9.7 (4.3-11.1) K/mcL Hgb 12.2 L (12.9-16.9) g/dL Hct 36.7 L (37.5-50.1) % Plt Count 202 (140-400) K/mcL Neutrophils # 6.7 (1.6-8.9) K/mcL BMP 07/06/18 05:58 Sodium 139 Potassium 4.0 Chloride 100 Carbon Dioxide 25 BUN 67 H Creatinine 7.02 H Glucose 157 H Calcium 9.2 - ABG Interpretation ABG results: PT/INR, D-dimer PT 11.3 Seconds (9.4-12.1) 07/01/18 15:33 Consult Discharge Plan - Plan Referrals: NONE,PCP [Primary Care Provider] - (3) Diabetes Qualifiers: Diabetes mellitus type: type 2 Diabetes mellitus [facility] insulin use: without [facility] use Diabetes mellitus complication status: with kidney complications Diabetes mellitus complication detail: with chronic kidney disease Chronic kidney disease stage: on chronic dialysis Qualified Code(s): E11.22 - Type 2 diabetes mellitus with diabetic chronic kidney disease; N18.6 - End stage renal disease; Z99.2 - Dependence on renal dialysis (4) Congestive heart failure (CHF) Qualifiers: Heart failure type: unspecified Heart failure chronicity: unspecified Qualified Code(s): I50.9 - Heart failure, unspecified (6) Hypertension Qualifiers: Hypertension type: essential hypertension Qualified Code(s): I10 - Essential (primary) hypertension
--- NOTE | 2018-07-06 15:47 | Neurology Progress Note ---
Date of Encounter: 07/06/18 Time of Encounter: 15:45 Assessment and Plan (1) Acute encephalopathy Current Visit: Yes Status: Acute (2) Confusion Current Visit: Yes Status: Acute At this juncture I am increasingly convinced that his acute mutism is not due to a primary neurologic etiology. I would not expect a primary neurologic etiology to only resulted in mutism without also affecting the individual's ability to process information, I would also expected to affect his level of consciousness and movements. This patient follows commands appropriately, he makes eye contact. There are no focal or lateralized deficits on his neurologic exam. There is no rigidity, no involuntary movements. There is no nuchal rigidity, I am move his head around he does not seem to be in any pain. I suspect it is acute mutism is due to a primary underlying mental health issue. At this junc ture I will sign off. I see no benefit in performing lumbar puncture at this time. We will reevaluate him at your request. Time spent with this visit was 25 minutes with greater than 50% of that time being spent in [id number]-ek-iemc contact examining the patient and coordinating care. Subjective Principal diagnosis: AMS Interval history: The chart was reviewed, the patient was seen and examined. Patient is laying in bed sleeping when I entered the room. He is aroused to voice. He did make eye contact with me. He remains nonverbal. However he does not appear to be in any pain, he follows simple commands such as squeezing upon command with both hands. He wiggles the toes on both feet on command. He does not seem to have any difficulty processing. He does not appear to be in any discomfort, his neck is supple. I find no evidence of any focal or lateralized deficits. His blood pressure has been elevated however. There is no rigidity, there are no involuntary movements. He is afebrile. Objective - Constitutional Vitals: Temp Pulse Resp BP Pulse Ox 97.5 F L 77 18 190/101 97 07/06/18 11:50 07/06/18 15:00 07/06/18 15:00 07/06/18 15:00 07/06/18 15:00 Examination: The neurological examination is limited by the patient's alteration in mental status. General Examination *GENERAL APPEARANCE OF PATIENT ill-appearing elderly male *EYES: pupils equal, round, reactive to light and accommodation, conjunctiva clear without masses or ulcerations, fundi normal. *CARDIOVASCULAR RRR, S1, S2, no mumurs, rubs, or gallops, no peripheral edema, distal temperature normal, dorsalis pedis pulses normal. Musculoskeletal: *ASSESSMENT OF MUSCLE STRENGTH IN THE UPPER AND LOWER EXTREMITIES patient squeezes with either hand on command, wiggles the toes on both feet upon command. There are no involuntary movements identified there are no focal or lateralized deficits present no rigidity is present no involuntary movements or atrophy are present. *MUSCLE TONE IN THE UPPER AND LOWER EXTREMITIES normal. No abnormal movements, fasciculations or atrophy identified. Neurological: *ORIENTATION altered mental state, nonverbal *RECURRENT AND REMOTE MEMORY unable to assess *ATTENTION AND CONCENTRATION patient does make eye contact today, he does follow commands. He remains somnolent but easily arouses to voice. *MENTAL as above *CN II optic fundi were normal, no papilledema noted. *CN III,IV, PERRLA, denies movement symmetrically horizontally; able to follow voice from left to right, no ptosis noted. *SENSORY EXAMINATION withdraws to plantar stimulation of both feet. *REFLEXES: deep tendon reflexes were normal and symmetrical , grade 2/4 diffusely, no pathological reflexes were noted. . *PAIN LEVEL Results - Laboratory Findings CBC and BMP: 07/06/18 05:58 07/06/18 05:58 Abnormal lab findings: Abnormal lab results RBC 4.05 M/mcL (4.19-5.50) L 07/06/18 05:58 Hgb 12.2 g/dL (12.9-16.9) L 07/06/18 05:58 Hct 36.7 % (37.5-50.1) L 07/06/18 05:58 BUN 67 mg/dL (8-23) H 07/06/18 05:58 Creatinine 7.02 mg/dL (0.70-1.30) H 07/06/18 05:58 Est GFR ( Amer) 9 (> 60) L 07/06/18 05:58 Est GFR (Non-Af Amer) 8 (> 60) L 07/06/18 05:58 Glucose 157 mg/dL (70-105) H 07/06/18 05:58 POC Glucose 130 mg/dL (70-99) H 07/06/18 01:58 Calculated Osmolality 311 (280-300) H 07/06/18 05:58 Phosphorus 5.6 mg/dL (2.7-4.5) H 07/04/18 05:31 AST 12 Units/L (13-39) L 07/01/18 15:33 Troponin I 0.06 ng/mL (< 0.04) H* 07/02/18 01:58 B-Natriuretic Peptide 1310 pg/mL (Less than 100) H 07/01/18 15:33 Serum Total Protein 5.9 g/dL (6.4-8.9) L 07/01/18 15:33 Ur Specific [place] 1.007 (1.010-1.025) L 07/01/18 16:56 Urine Protein >=300 mg/dL (Neg-Trace) H 07/01/18 16:56 Urine Ketones Trace mg/dL (Negative) H 07/01/18 16:56 Ur Squamous Epith Cells Many per lpf (None-Few) H 07/01/18 16:56 Salicylates < 2.5 mg/dL (15.0-30.0) L 07/01/18 18:37 Acetaminophen < 10 mcg/mL (10-20) L 07/01/18 18:37 Hep Bs Antibody < 3.10 mIU/mL (10.00-) L 07/02/18 14:53 Consult Discharge Plan - Plan Referrals: NONE,PCP [Primary Care Provider] -
--- NOTE | 2018-07-06 17:12 | Palliative Progress Note ---
Date of Encounter: 07/06/18 Time of Encounter: 09:30 - Assessment and plan (1) Goals of care, counseling/discussion Current Visit: Yes Status: Acute Assessment and plan: torri Carbone for follow up conversation. Tona discussed with her mother, pt's sister. She states decision was made for no feeding tubes. Per Tona, family have decided that pt may have one more session of HD tomorrow, but if mental status does not improve afterward, then they will discontinue and proceed with hospice. Discussed that if pt remains stable, hospice will be offered at the [facility] where pt resides. Palliative care team will follow p tomorrow. (2) Acute encephalopathy Current Visit: Yes Status: Acute Assessment and plan: ethiology uncertain, MRI was negative. Neurology and psychiatry appreciated. Continue Haldol 5 mg qhs scheduled continue Bupropion (3) ESRD (end stage renal disease) on dialysis Current Visit: Yes Status: Acute Assessment and plan: next HD scheduled for Saturday. Family to decide on continuation of HD. - Time Spent With Patient Total time spent is greater than 50% in coordination of care (as documented) at patient's floor/unit and/or counseling patient: 25 - 35 minutes - Subjective Interval history: Pt ramains lethargic, opening eyes transiently to pain stimuli, not following commands. Not in acute distress. - Constitutional Vitals: Abnormal lab results RBC 4.05 M/mcL (4.19-5.50) L 07/06/18 05:58 Hgb 12.2 g/dL (12.9-16.9) L 07/06/18 05:58 Hct 36.7 % (37.5-50.1) L 07/06/18 05:58 BUN 67 mg/dL (8-23) H 07/06/18 05:58 Creatinine 7.02 mg/dL (0.70-1.30) H 07/06/18 05:58 Est GFR ( Amer) 9 (> 60) L 07/06/18 05:58 Est GFR (Non-Af Amer) 8 (> 60) L 07/06/18 05:58 Glucose 157 mg/dL (70-105) H 07/06/18 05:58 POC Glucose 130 mg/dL (70-99) H 07/06/18 01:58 Calculated Osmolality 311 (280-300) H 07/06/18 05:58 Phosphorus 5.6 mg/dL (2.7-4.5) H 07/04/18 05:31 AST 12 Units/L (13-39) L 07/01/18 15:33 Troponin I 0.06 ng/mL (< 0.04) H* 07/02/18 01:58 B-Natriuretic Peptide 1310 pg/mL (Less than 100) H 07/01/18 15:33 Serum Total Protein 5.9 g/dL (6.4-8.9) L 07/01/18 15:33 Ur Specific [place] 1.007 (1.010-1.025) L 07/01/18 16:56 Urine Protein >=300 mg/dL (Neg-Trace) H 07/01/18 16:56 Urine Ketones Trace mg/dL (Negative) H 07/01/18 16:56 Ur Squamous Epith Cells Many per lpf (None-Few) H 07/01/18 16:56 Salicylates < 2.5 mg/dL (15.0-30.0) L 07/01/18 18:37 Acetaminophen < 10 mcg/mL (10-20) L 07/01/18 18:37 Hep Bs Antibody < 3.10 mIU/mL (10.00-) L 07/02/18 14:53 Exam: General: Patient remains lethargic and nonresponsive to questions. Respiratory: Coarse breath sounds bilaterally Cardiovascular: Regular rate and rhythm. s1 and s2 normal No clicks, rubs, gallops, or murmurs. No pedal edema Abdomen: Abdomen is soft, nontender. Bowel sounds are present Musculoskeletal: Nonpurposeful spontaneous movements Skin: warm, dry, intact. Neuro: Does not follow commands. Psych: Flat affect, no purposeful movement. Palliative Quality Palliative Quality: Screen for Code Status: Yes, Screen for Goals of Care: Yes, Screen for Pain: Yes, If Pain Regimen Started, Initiate Bowel Regimen: NA, Screen for Nausea/Vomitting: Yes Code Status: 07/02/18 01:49 Resuscitation Status: Active [RES] Routine Comment: Resuscitation Status: Full Code Resuscitation Status: Active [RES] Routine Comment: Resuscitation Status: DNR-Comfort Care-Arrest - Labs CBC & Chem 7: 07/06/18 05:58 07/06/18 05:58 Labs: Laboratory Results - last 24 hr 07/05/18 07/05/18 07/05/18 05:34 12:02 16:45 WBC RBC Hgb Hct MCV MCH MCHC RDW Plt Count MPV Immature Gran % Seg Neutrophils % Lymphocytes % Monocytes % Eosinophils % Basophils % Neutrophils # Lymphocytes # Monocytes # Eosinophils # Basophils # Sodium Potassium Chloride Carbon Dioxide BUN Creatinine Est GFR ( Amer) Est GFR (Non-Af Amer) BUN/Creatinine Ratio Glucose POC Glucose 146 H 122 H 136 H Calculated Osmolality Calcium 07/06/18 07/06/18 07/06/18 01:58 05:58 05:58 WBC 9.7 RBC 4.05 L Hgb 12.2 L Hct 36.7 L MCV 90.6 MCH 30.1 MCHC 33.2 RDW 13.6 Plt Count 202 MPV 10.4 Immature Gran % 0.4 Seg Neutrophils % 68.7 Lymphocytes % 21.6 Monocytes % 7.5 Eosinophils % 1.5 Basophils % 0.3 Neutrophils # 6.7 Lymphocytes # 2.1 Monocytes # 0.7 Eosinophils # 0.2 Basophils # 0.0 Sodium 139 Potassium 4.0 Chloride 100 Carbon Dioxide 25 BUN 67 H Creatinine 7.02 H Est GFR ( Amer) 9 L Est GFR (Non-Af Amer) 8 L BUN/Creatinine Ratio 10 Glucose 157 H POC Glucose 130 H Calculated Osmolality 311 H Calcium 9.2 - ABG Interpretation ABG results: PT/INR, D-dimer PT 11.3 Seconds (9.4-12.1) 07/01/18 15:33 Consult Discharge Plan - Plan Referrals: NONE,PCP [Primary Care Provider] -
--- NOTE | 2018-07-06 18:32 | Nephrology Progress Note ---
Date of Encounter: 07/06/18 Time of Encounter: 13:00 - Assessment and Plan (1) ESRD (end stage renal disease) on dialysis Current Visit: Yes Status: Acute Would be happy to dialyze per request one more time tomorrow but not sure this would be helpful since pt is NOT uremic HD might clear some meds that might be affecting mentation (2) Acute encephalopathy Current Visit: Yes Status: Acute Per team; neurology, psych and primary. Not uremic (3) History of schizophrenia Current Visit: Yes Status: Acute per psych (4) Hypertension Current Visit: Yes Status: Acute Subjective Principal diagnosis: AMS Interval history: Pt seen and examined resting comfortably, wakes up alittle but noncommunicative. Per nurse, now DNR-CC but was not sure on dialysis status. Review of palliative care notes suggests family wants one HD session before final decisions. Objective - Vital Signs Vital signs: Vital Signs Temp Pulse Resp BP Pulse Ox 07/06/18 17:19 97.7 F 73 18 146/88 98 07/06/18 16:00 86 18 204/109 96 07/06/18 15:00 77 18 190/101 97 07/06/18 13:00 61 17 175/91 98 07/06/18 11:50 97.5 F L 78 18 173/101 99 07/06/18 10:15 77 17 103/59 97 07/06/18 10:00 67 18 118/66 96 07/06/18 09:00 61 18 136/72 98 07/06/18 08:00 66 18 142/74 96 07/06/18 07:30 97.7 F 76 18 152/86 100 07/06/18 06:15 76 139/76 07/06/18 05:00 69 140/96 07/06/18 04:00 78 126/73 95 07/06/18 03:22 97.7 F 72 18 141/71 94 07/06/18 03:00 70 141/71 93 07/06/18 02:00 77 16 167/75 95 07/06/18 01:00 78 16 144/84 90 07/06/18 00:00 80 154/76 93 07/05/18 23:24 97.1 F L 105 20 155/82 98 07/05/18 21:00 83 18 161/81 98 07/05/18 20:45 96 07/05/18 20:13 97.5 F L 78 18 129/67 96 07/05/18 19:00 106 18 134/82 95 Intake and Output 07/06/18 07/06/18 07/06/18 07:59 15:59 23:59 Intake Total 200 / 200 1000 / 1000 0 / 0 Balance 200 / 200 1000 / 1000 0 / 0 Intake: IV Fluids 200 / 200 1000 / 1000 D5% And 0.45% Nacl 1000 Ml Bag 1000 / 1000 1,000 ML @ 50 mls/hr IVC .Q20H HARJEET Rx#:[id number] Cardene Premix 40mg/200ml 40 mg 200 / 200 In 200 ml @ 5 MG/HR 25 mls/hr IVC .Q8H HARJEET Rx#:[id number] Oral 0 / 0 0 / 0 Other: Meal NPO Percent of Meal Consumed 0% Weight 65.6 kg Blood Glucose* 130 166 135 Patient Weight 07/06/18 23:59 Weight 65.6 kg - General Appearance General appearance: Present: chronically ill, fatigue EENT: Present: ATNC, mucous membranes dry Neck: Present: no JVD, supple Respiratory: Present: course breath sounds Cardiology: Present: no edema, normal S1, normal S2 Gastrointestinal: Present: no tenderness, no guarding Integumentary: Present: warm and dry Neurologic: Present: disoriented (when opens eyes) Musculoskeletal: Present: no deformities Additional Comments: unable to assess - Lab 07/06/18 05:58 07/06/18 05:58 Most recent lab results Calcium 9.2 mg/dL (8.6-10.3) 07/06/18 05:58 Phosphorus 5.6 mg/dL (2.7-4.5) H 07/04/18 05:31 Consult Discharge Plan - Plan Referrals: NONE,PCP [Primary Care Provider] -
[2018-07-06] MEDS: Melatonin 3 MG TABLET PO SCH (21:04)
[2018-07-07] MEDS: Insulin LISPRO 300 UNITS/3 ML VIAL SQ SCH ×4 (00:47→18:23)
[2018-07-07] MEDS ORDERED: *HR* Labetalol 20 MG/4 ML SYRINGE IVP ONE (05:40)
[2018-07-07] MEDS: *HR* Heparin 5,000 UNIT/ML VIAL SQ SCH ×2 (05:51→18:22)
[2018-07-07] MEDS: Calcium Acetate 667 MG CAPSULE PO SCH ×3 (09:18→15:48)
[2018-07-07] MEDS: BuPROPion SR (12 HR) 100 MG TABLET PO SCH ×2 (09:19→21:27)
[2018-07-07] MEDS: Furosemide 40 MG TABLET PO SCH (09:19)
[2018-07-07] MEDS: amLODIPine 5 MG TABLET PO SCH (09:19)
[2018-07-07] MEDS: Aspirin 81 MG TAB.CHEW PO SCH (09:19)
[2018-07-07] MEDS: Folic Acid 1 MG TABLET PO SCH (09:19)
[2018-07-07 09:23] LABS: Hematocrit 36.7 % (37.5-50.1); Hemoglobin 11.9 g/dL (12.9-16.9); Mean Corpuscular HGB Conc 32.4 g/dL (31.6-35.5); Mean Corpuscular Hemoglobin 29.8 pg (28.0-33.3); Mean Corpuscular Volume 91.8 fL (83.0-100.0); Platelet Count 176 K/mcL (140-400); Red Cell Distribution Width 13.4 % (11.5-14.5)
[2018-07-07 09:42] LABS: Calcium 9.1 mg/dL (8.6-10.3); Potassium 3.8 mEq/L (3.5-5.1)
--- NOTE | 2018-07-07 09:48 | Event Note ---
Date of Encounter: 07/07/18 Time of Encounter: 09:15 Followed up with Primary RN and completed Chart review. Patient's family awaiting to evaluate results of next dialysis prior to making further goals of care decisions. Patient to have dialysis this afternoon. Primary RN to notify palliative care team once patient's dialysis is complete. Palliative will continue to follow to assist with disposition. Patient not experiencing any symptoms at this time. No family present at bedside.
[2018-07-07] MEDS ORDERED: 0.9 % Sodium Chloride 250 ML IVC PRN (10:42)
--- NOTE | 2018-07-07 11:22 | Nephrology Progress Note ---
Addendum entered and electronically signed by Odin Day MD 07/08/18 09:26: I examined this patient and my medical decision-making was reviewed with 911 EMERGENCY DISPATCHER. I agree with the documented findings, disposition and treatment plan as described except to the extent set forth below. Power of state's attorney has decided to pursue palliative care. Will sign off please call if any questions or concerns. Original Note: Date of Encounter: 07/07/18 Time of Encounter: 11:20 - Assessment and Plan (1) ESRD (end stage renal disease) on dialysis Current Visit: Yes Status: Acute HD in progress for today. Per Palliative note, if no improvement after HD, family wishes to pursue hospice. Per Palliative note, Tona would like all HD stopped today. Nephrology will sign off, please reconsult if needed. (2) History of schizophrenia Current Visit: Yes Status: Acute per psych (3) Acute encephalopathy Current Visit: Yes Status: Acute Per team; neurology, psych and primary. Not uremic (4) Hypertension Current Visit: Yes Status: Acute stable Subjective Principal diagnosis: AMS Interval history: Patient seen and examined in HD, tolerating well. Does not make eye contact with me. ROS unobtainable. Objective - Vital Signs Vital signs: Vital Signs Temp Pulse Resp BP Pulse Ox 07/07/18 09:23 54 07/07/18 06:58 97.1 F L 53 14 151/79 100 07/07/18 06:34 53 147/92 100 07/07/18 05:27 58 195/88 100 07/07/18 04:14 60 174/88 100 07/07/18 03:24 97.3 F L 62 16 171/98 100 07/06/18 22:48 97.8 F 77 20 182/93 96 07/06/18 20:01 97.8 F 71 18 161/85 97 07/06/18 17:19 97.7 F 73 18 146/88 98 07/06/18 16:00 86 18 204/109 96 07/06/18 15:00 77 18 190/101 97 07/06/18 13:00 61 17 175/91 98 07/06/18 11:50 97.5 F L 78 18 173/101 99 Intake and Output 07/06/18 07/07/18 07/07/18 23:59 07:59 15:59 Intake Total 0 / 0 0 / 0 Balance 0 / 0 0 / 0 Intake: Oral 0 / 0 0 / 0 Other: Meal NPO NPO Percent of Meal Consumed 0% 0% Stool Size Small Moderate Smear Stool Consistency soft soft formed Stool Color Brown Brown Brown # Bowel Movements 1 # Bowel Movement Diapers 1 Blood Glucose* 135 114 - General Appearance General appearance: Present: well-developed, well-nourished EENT: Present: ATNC Neck: Present: supple Respiratory: Present: clear Cardiology: Present: no edema, normal S1, normal S2 Dialysis Vascular Access: Arteriovenous Fistula thrill: Yes bruit: Yes Gastrointestinal: Present: normoactive bowel sounds, no tenderness, no guarding Integumentary: Present: no rash, warm and dry Musculoskeletal: Present: no deformities, no erythema Psychiatric: Present: mood/affect appropriate - Lab 07/07/18 09:11 07/07/18 09:11 Most recent lab results Calcium 9.1 mg/dL (8.6-10.3) 07/07/18 09:11 Phosphorus 5.6 mg/dL (2.7-4.5) H 07/04/18 05:31 Consult Discharge Plan - Plan Referrals: NONE,PCP [Primary Care Provider] -
--- NOTE | 2018-07-07 12:47 | Palliative Progress Note ---
Date of Encounter: 07/07/18 Time of Encounter: 12:00 - Assessment and plan (1) Acute encephalopathy Current Visit: Yes Status: Acute Assessment and plan: Cause remains unclear. Neurology and Psychiatry consults appreciated. COntinue Haldol and Bupropion as ordered. (2) ESRD (end stage renal disease) on dialysis Current Visit: Yes Status: Acute Assessment and plan: Patient's MPOA Tona reports she wants all HD stopped effective immediately. Requested HD nurse to discontinue treatment, whom per Primary RN report notified Nephrology. Nephrology consult appreciated. (3) Goals of care, counseling/discussion Current Visit: Yes Status: Acute Assessment and plan: Patient unable to participate in goals of care discussion. Called, spoke with Tona regarding goals of care moving forward. Reviewed todays events of her visit with patient in dialysis and stopping treatment. Tona reports she understood the goal as it was expressed yesterday; however, upon visiting patient today during dialysis she reports that she understood patient would not have a significant improvement in status with continued dialysis. Reviewed goals regarding nutrition; Tona reports she desires no PEG tube for patient. Inquired discharge planning. Tona reported plan is for patient to have hospice care moving forward, desires for patient to stay in hospital overnight tonight and re-evaluate stability to determine whether it would be safe for patient to be transported to [facility] at that time. Would be willing to have patient GIP if deemed necessary. Tona is concerned patient's blood pressure would be too high for him to be cared for outside of the hospital, explained with hospice care we focus on patient and not so much the numbers, verbalized understanding. Confirmed CODE STATUS, patient to be DNRCC. Palliative will continue to follow for assistance with evaluation of discharge plan tomorrow. Julio Cesar RN on 2N notified of patient's ability to transfer to if bed available. No need for cardiac monitoring at this point. - Time Spent With Patient Total time spent is greater than 50% in coordination of care (as documented) at patient's floor/unit and/or counseling patient: 5 minutes chart review 5 minute patient assessment 10 minute conversation with family regarding goals of care. 10 minute update with Primary RN and Charge nurse of goals of care. 2 minute follow up with 2A to ensure bed availability [address] Dunlap of patient's plan of care 25 - 35 minutes - Subjective Interval history: Received notification from Primary RN patient's MPOA present at bedside and upset patient was in dialysis. Reports family had decided no further HD and no PEG tube. Notified Primary RN would be up to room in a few minutes to talk with family, phone number obtained to call family back upon arrival to room. Upon arrival to unit at 1210 pm, received notification from Primary RN that patient's sister went to HD suite and decided at that point that patient would no longer benefit from HD and had HD nurse stop treatment. Patient lying in bed, eyes open lying on left side. Patient does not follow commands. Patient withdraws from painful stimulation. - Constitutional Vitals: Abnormal lab results RBC 4.00 M/mcL (4.19-5.50) L 07/07/18 09:11 Hgb 11.9 g/dL (12.9-16.9) L 07/07/18 09:11 Hct 36.7 % (37.5-50.1) L 07/07/18 09:11 BUN 78 mg/dL (8-23) H 07/07/18 09:11 Creatinine 8.41 mg/dL (0.70-1.30) H 07/07/18 09:11 Est GFR ( Amer) 8 (> 60) L 07/07/18 09:11 Est GFR (Non-Af Amer) 6 (> 60) L 07/07/18 09:11 Glucose 151 mg/dL (70-105) H 07/07/18 09:11 POC Glucose 114 mg/dL (70-99) H 07/07/18 05:45 Calculated Osmolality 318 (280-300) H 07/07/18 09:11 Phosphorus 5.6 mg/dL (2.7-4.5) H 07/04/18 05:31 AST 12 Units/L (13-39) L 07/01/18 15:33 Troponin I 0.06 ng/mL (< 0.04) H* 07/02/18 01:58 B-Natriuretic Peptide 1310 pg/mL (Less than 100) H 07/01/18 15:33 Serum Total Protein 5.9 g/dL (6.4-8.9) L 07/01/18 15:33 Ur Specific [place] 1.007 (1.010-1.025) L 07/01/18 16:56 Urine Protein >=300 mg/dL (Neg-Trace) H 07/01/18 16:56 Urine Ketones Trace mg/dL (Negative) H 07/01/18 16:56 Ur Squamous Epith Cells Many per lpf (None-Few) H 07/01/18 16:56 Salicylates < 2.5 mg/dL (15.0-30.0) L 07/01/18 18:37 Acetaminophen < 10 mcg/mL (10-20) L 07/01/18 18:37 Hep Bs Antibody < 3.10 mIU/mL (10.00-) L 07/02/18 14:53 General appearance: Present: disheveled, no acute distress - Head Head exam: Present: atraumatic, normal inspection - Eye Eye exam: Present: normal appearance. Absent: periorbital swelling, periorbital tenderness Pupils: Present: normal accommodation - ENT ENT exam: Present: mucous membranes dry, normal external ear exam - Neck Neck exam: Present: normal inspection - Respiratory Respiratory exam: Present: rhonchi. Absent: accessory muscle use, respiratory distress, wheezes, tachypnea - Cardiovascular Cardiovascular exam: Present: +S1, +S2 - GI/Abdominal GI/Abdominal exam: Present: normal bowel sounds, soft. Absent: hyperactive bowel sounds, hypoactive bowel sounds, tenderness - Rectal Rectal exam: Present: deferred - Extremities Exam Extremities exam: Present: normal inspection - Back Exam Back exam: Present: normal inspection, tenderness - Neurological Exam Neurological exam: Present: altered. Absent: oriented X3, facial droop - Psychiatric Psychiatric exam: Present: flat affect Palliative Quality Palliative Quality: Screen for Code Status: Yes, Screen for Goals of Care: Yes, Screen for Pain: Yes, If Pain Regimen Started, Initiate Bowel Regimen: NA, Screen for Nausea/Vomitting: Yes Code Status: 07/02/18 01:49 Resuscitation Status: Active [RES] Routine Comment: Resuscitation Status: DNR-Comfort Care-Arrest Resuscitation Status: Active [RES] Routine Comment: Resuscitation Status: Full Code Resuscitation Status: Active [RES] Routine Comment: Per note from Dr. Garcia. Resuscitation Status: DNR-Comfort Care - Labs CBC & Chem 7: 07/07/18 09:11 07/07/18 09:11 Labs: Laboratory Results - last 24 hr 07/06/18 07/06/18 07/06/18 06:09 11:59 17:23 WBC RBC Hgb Hct MCV MCH MCHC RDW Plt Count MPV Sodium Potassium Chloride Carbon Dioxide BUN Creatinine Est GFR ( Amer) Est GFR (Non-Af Amer) BUN/Creatinine Ratio Glucose POC Glucose 130 H 166 H 135 H Calculated Osmolality Calcium 07/07/18 07/07/18 07/07/18 00:17 05:45 09:11 WBC 8.6 RBC 4.00 L Hgb 11.9 L Hct 36.7 L MCV 91.8 MCH 29.8 MCHC 32.4 RDW 13.4 Plt Count 176 MPV 10.0 Sodium Potassium Chloride Carbon Dioxide BUN Creatinine Est GFR ( Amer) Est GFR (Non-Af Amer) BUN/Creatinine Ratio Glucose POC Glucose 113 H 114 H Calculated Osmolality Calcium 07/07/18 09:11 WBC RBC Hgb Hct MCV MCH MCHC RDW Plt Count MPV Sodium 141 Potassium 3.8 Chloride 103 Carbon Dioxide 29 BUN 78 H Creatinine 8.41 H Est GFR ( Amer) 8 L Est GFR (Non-Af Amer) 6 L BUN/Creatinine Ratio 9 Glucose 151 H POC Glucose Calculated Osmolality 318 H Calcium 9.1 - ABG Interpretation ABG results: PT/INR, D-dimer PT 11.3 Seconds (9.4-12.1) 07/01/18 15:33 Palliative Scale - Palliative Performance Scale How ambulatory is this patient?: Totally bed bound What is patient's level of activity and evidence of disease?: Unable to do any activity, Extensive disease How much self-care assistance does patient require?: Total care How much oral intake does the patient have?: Mouth care only What is this patient's level of consciousness?: Drowsy or coma with or without confusion Palliative Performance Score: 10 % Consult Discharge Plan - Plan Referrals: NONE,PCP [Primary Care Provider] -
--- NOTE | 2018-07-07 14:14 | Internal Med Progress Note ---
Hospitalist Progress Note - Encounter Date of Encounter: 07/07/18 Time of Encounter: 10:40 - Subjective Interval History: No change in patient's condition. Remains lethargic. Difficult to awake today. Was scheduled for hemodialysis today - Exam Vitals: Temp Pulse Resp BP Pulse Ox 96.4 F L 54 15 157/88 100 07/07/18 11:30 07/07/18 09:23 07/07/18 11:30 07/07/18 12:00 07/07/18 06:58 Exam: General: Patient is somnolent, difficult to awake Respiratory: Good respiratory effort. Normal breath sounds. No wheezing or crackles. Cardiovascular: Regular rate and rhythm. s1 and s2 normal No clicks, rubs, gallops, or murmurs. No pedal edema Abdomen: Abdomen is soft, nontender. Bowel sounds are present Musculoskeletal: Somnolent. Neuro: Somnolent, not following commands. - Assessment and Plan (1) Hypertensive urgency Current Visit: Yes Status: Acute Assessment and Plan: Blood pressure has improved. Patient is receiving when necessary meds intraven ously as he is not taking his oral medications. (2) Goals of care, counseling/discussion Current Visit: Yes Status: Acute Assessment and Plan: Palliative care input appreciated. Per discussion with them, dialysis has been stopped. Patient being transitioned to hospice. Will transfer to [facility] floor. DC telemetry. (3) Acute encephalopathy Current Visit: Yes Status: Acute Assessment and Plan: Multifactorial. She has not been taking his psychiatric medications. Also has uremia although this has caused his episode of encephalopathy. (4) Diabetes Current Visit: Yes Status: Chronic Assessment and Plan: Monitoring blood sugars. Well controlled (5) Congestive heart failure (CHF) Current Visit: Yes Status: Chronic (6) Elevated troponin Current Visit: Yes Status: Acute (7) Hypertension Current Visit: Yes Status: Chronic - Time Spent with Patient Total time spent is greater than 50% in coordination of care (as documented) at patient's floor/unit and/or counseling patient: Internal Medicine: Result - Labs CBC & Chem 7: 07/07/18 09:11 07/07/18 09:11 Labs: Short CBC 07/07/18 Range/Units 09:11 WBC 8.6 (4.3-11.1) K/mcL Hgb 11.9 L (12.9-16.9) g/dL Hct 36.7 L (37.5-50.1) % Plt Count 176 (140-400) K/mcL BMP 07/07/18 09:11 Sodium 141 Potassium 3.8 Chloride 103 Carbon Dioxide 29 BUN 78 H Creatinine 8.41 H Glucose 151 H Calcium 9.1 - ABG Interpretation ABG results: PT/INR, D-dimer PT 11.3 Seconds (9.4-12.1) 07/01/18 15:33 Consult Discharge Plan - Plan Referrals: NONE,PCP [Primary Care Provider] - (4) Diabetes Qualifiers: Diabetes mellitus type: type 2 Diabetes mellitus penitentiary insulin use: without penitentiary use Diabetes mellitus complication status: with kidney complications Diabetes mellitus complication detail: with chronic kidney disease Chronic kidney disease stage: on chronic dialysis Qualified Code(s): E11.22 - Type 2 diabetes mellitus with diabetic chronic kidney disease; N18.6 - End stage renal disease; Z99.2 - Dependence on renal dialysis (5) Congestive heart failure (CHF) Qualifiers: Heart failure type: unspecified Heart failure chronicity: unspecified Qualified Code(s): I50.9 - Heart failure, unspecified (7) Hypertension Qualifiers: Hypertension type: essential hypertension Qualified Code(s): I10 - Essential (primary) hypertension
[2018-07-07] MEDS: Melatonin 3 MG TABLET PO SCH (21:27)
[2018-07-07] MEDS: Haloperidol Lactate 5 MG/ML VIAL IVP SCH ×2 (21:28)
[2018-07-08] MEDS: Insulin LISPRO 300 UNITS/3 ML VIAL SQ SCH ×3 (00:23→11:45)
[2018-07-08] MEDS: *HR* Labetalol 20 MG/4 ML SYRINGE IVP PRN ×2 (01:27→08:48)
[2018-07-08] MEDS: *HR* Heparin 5,000 UNIT/ML VIAL SQ SCH (05:36)
[2018-07-08] MEDS: Furosemide 40 MG TABLET PO SCH (08:47)
[2018-07-08] MEDS: Calcium Acetate 667 MG CAPSULE PO SCH ×2 (08:47→11:45)
[2018-07-08] MEDS: Folic Acid 1 MG TABLET PO SCH (08:47)
[2018-07-08] MEDS: BuPROPion SR (12 HR) 100 MG TABLET PO SCH (08:47)
[2018-07-08] MEDS: amLODIPine 5 MG TABLET PO SCH (08:47)
[2018-07-08 11:14] VITALS: BP 163/68
--- NOTE | 2018-07-08 13:09 | Discharge Summary ---
- NOTES TO OUTPATIENT PROVIDER Notes to Outpatient Provider: Patient with a history of CHF,end stage disease on hemodialysis, dementia, schizophrenia, bipolar disorder who was hospitalized here for increasing confusion and AMS. Patient had not been eating or taking his meds for several days prior. He appeared catatonic and was treated with intravenous antipsychotic agents. Psychiatry was called and recommended a valium challenge test. He did not improve with it. He received HD and still remained confused. After talking with his family, DPOA and palliative care, dialysis has been discontinued and patient is now comfort care and will be discharged today on hospice. Date of Encounter: 07/08/18 Time of Encounter: 13:04 - Discharge Diagnosis (1) Hypertensive urgency Priority: Primary Status: Acute (2) Goals of care, counseling/discussion Priority: Secondary Status: Acute (3) Acute encephalopathy Priority: Secondary Status: Acute Assessment and Plan: Metabolic/ Psychogenic (4) Diabetes Priority: Secondary Status: Chronic Qualifiers: Diabetes mellitus type: type 2 Diabetes mellitus termite treater insulin use: without detention use Diabetes mellitus complication status: with kidney complications Diabetes mellitus complication detail: with chronic kidney disease Chronic kidney disease stage: on chronic dialysis Qualified Code(s): E11.22 - Type 2 diabetes mellitus with diabetic chronic kidney disease; N18.6 - End stage renal disease; Z99.2 - Dependence on renal dialysis (5) Congestive heart failure (CHF) Priority: Secondary Status: Chronic Qualifiers: Heart failure type: unspecified Heart failure chronicity: unspecified Qualified Code(s): I50.9 - Heart failure, unspecified (6) Elevated troponin Priority: Secondary Status: Acute (7) Hypertension Priority: Secondary Status: Chronic Qualifiers: Hypertension type: essential hypertension Qualified Code(s): I10 - Essential (primary) hypertension Hospital course: Mr. Gomez is a 73 year old male Patient with a history of CHF,end stage disease on hemodialysis, dementia, schizophrenia, bipolar disorder who was hospitalized here for increasing confusion and AMS. Patient had not been eating or taking his meds for several days prior. He appeared catatonic and was treated with intravenous antipsychotic agents. Psychiatry was called and recommended a valium challenge test. He did not improve with it. He received HD and still remained confused. After talking with his family, DPOA and palliative care, dialysis has been discontinued and patient is now comfort care and will be discharged today on hospice. Discharge discussed with: nurse, databases software consultant - Time Spent with Patient Total time spent providing and/or coordinating discharge services: Greater than 30 minutes (40 min) - Discharge Medications Home Medications: Trihexyphenidyl [Artane] 5 mg PO HS 02/19/15 [History] Furosemide [Lasix] 40 mg PO DAILY #2 tab 09/29/16 [Rx] Insulin Glargine,Hum.rec.anlog [Lantus Solostar] 15 unit SQ HS 04/25/17 [History] Potassium Chloride [Klor-Con 10] 10 meq PO BID 04/25/17 [History] Ascorbate Calcium [Vitamin C] 500 mg PO DAILY 06/23/17 [History] Haloperidol [Haldol] 5 mg PO HS 06/23/17 [History] Folic Acid 0.4 mg PO DAILY 10/04/17 [History] Tamsulosin [Flomax] 0.4 mg PO DAILY 11/15/17 [History] Losartan [Cozaar] 50 mg PO BID 4 Days #16 tablet 11/21/17 [Rx] cloNIDine HCl [CloNIDine HCl] 0.3 mg PO TID 4 Days #36 tablet 11/21/17 [Rx] Aspirin 81 mg PO Q48H #0 12/03/17 [Rx] Linagliptin [Tradjenta] 5 mg PO DAILY 06/30/18 [History] Melatonin 5 mg PO HS 06/30/18 [History] amLODIPine [Norvasc] 10 mg PO DAILY 06/30/18 [History] Acetaminophen [Tylenol] 650 mg PO Q4H PRN 07/01/18 [History] Atorvastatin [Lipitor] 10 mg PO HS 07/01/18 [History] BuPROPion SR (12 HR) [Wellbutrin SR] 100 mg PO BID 07/01/18 [History] Calcium Acetate [Phos-LO] 2,001 mg PO TIDWM 07/01/18 [History] Doxazosin [Cardura] 8 mg PO HS 07/01/18 [History] GuaiFENesin/Dextromethorphan [Robitussin/Dm] 10 ml PO Q6HR PRN 07/01/18 [History] Lidocaine/Prilocaine CREAM [Emla] 5 gm TP MOWEFR 07/01/18 [History] Magnesium Hydroxide [Milk of Magnesia] 400 mg PO DAILY PRN 07/01/18 [History] Allergies/Adverse Reactions: Allergy/AdvReac Type Severity Reaction Status Date / Time Penicillins [PCN] Allergy Anaphylaxis Verified 04/25/17 18:58 Thiopental [From Pentothal] Allergy Anaphylaxis Verified 04/25/17 18:58 lisinopril AdvReac Cough Verified 04/25/17 18:58 Metolazone AdvReac See Verified 04/25/17 18:58 Comments Date of admission: 07/04/18 17:37 Primary care physician: PCP NONE Consults: 07/02/18 00:13 Consult to Nutrition [CONS] Routine Comment: Consulting Provider: NUTRITION Reason for Dietary Consult: MST Score 07/02/18 01:50 Consult to Psychiatry [CONS] Routine Consulting Provider: Psychiatry Rukhsana Reason consult: Altered mental status 07/02/18 01:51 Consult to Nephrology [CONS] Routine Consulting Provider: Kidney Rukhsana/LESLEY/IRAIDA/ERIK Reason for Consult: Dialysis patient, end-stage renal disease Call Completed: No 07/02/18 07:00 Consult to Dialysis [CONS] ONCE 07/02/18 10:04 Consult to Card Assembler [CONS] Routine Reason for SW Consult: return to [place] 07/04/18 05:30 Consult to Dialysis [CONS] QMWF 07/04/18 08:44 Consult to Nurse Navigator [CONS] Routine Comment: hd 07/04/18 09:21 Consult to Neurology [CONS] Routine Consulting Provider: Neurology [facility] Reason for Consult: Acute encephalopathy Time Notified: 09:21 Call Completed: Yes 07/04/18 16:26 Consult to Palliative Care [CONS] Routine Comment: Consulting Provider: Palliative Care Rukhsana Reason for Consult: Goals of care Time Notified: 16:26 Call Completed: Yes 07/07/18 05:30 Consult to Dialysis [CONS] QMWF 07/07/18 10:45 Consult to Dialysis [CONS] ONCE Discharging clinician: Arian Dunlap Anticipated date of discharge: 07/08/18 - Constitutional Vitals: Temp Pulse Resp BP Pulse Ox 97.8 F 58 16 163/68 96 07/08/18 11:12 07/08/18 11:12 07/08/18 11:12 07/08/18 11:12 07/08/18 11:12 General appearance: Absent: A&O X 0, cooperative, answers questions appropriately Exam: Patient non responsive to verbal commands. Withdraws to sternal rub - Respiratory Respiratory exam: Present: CTAB. Absent: accessory muscle use, rales, rhonchi, wheezes - Cardiovascular Cardiovascular exam: Present: RRR, +S1, +S2. Absent: diastolic murmur, gallop, rubs, systolic murmur - Patient Status Disposition: Hospice - Medical Facility Condition: Serious Functional capacity at discharge: bed bound Overall status at discharge: patient is not back to baseline - Discharge Instructions Follow Up With: NONE,PCP [Primary Care Provider] - (in 1-2 weeks) Forms: ED Satisfaction Letter - Diet and Activity Activity: other (As tolerated) Diet: advance to your usual diet (as tolerated)
--- NOTE | 2018-07-08 13:16 | Physician Discharge Referral ---
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 Institutional Level of Care: Intermediate - Diagnosis (1) Acute encephalopathy Priority: Primary Status: Acute (2) Hypertensive urgency Priority: Secondary Status: Acute (3) Goals of care, counseling/discussion Priority: Secondary Status: Acute (4) Diabetes Priority: Secondary Status: Chronic (5) Congestive heart failure (CHF) Priority: Secondary Status: Chronic (6) Elevated troponin Priority: Secondary Status: Acute (7) Hypertension Priority: Secondary Status: Chronic Prognosis: Poor Aware of Diagnosis: Family Aware of Prognosis: Family - Transfer Medications Home Medications: Trihexyphenidyl [Artane] 5 mg PO HS 02/19/15 [History] Furosemide [Lasix] 40 mg PO DAILY #2 tab 09/29/16 [Rx] Insulin Glargine,Hum.rec.anlog [Lantus Solostar] 15 unit SQ HS 04/25/17 [History] Potassium Chloride [Klor-Con 10] 10 meq PO BID 04/25/17 [History] Ascorbate Calcium [Vitamin C] 500 mg PO DAILY 06/23/17 [History] Haloperidol [Haldol] 5 mg PO HS 06/23/17 [History] Folic Acid 0.4 mg PO DAILY 10/04/17 [History] Tamsulosin [Flomax] 0.4 mg PO DAILY 11/15/17 [History] Losartan [Cozaar] 50 mg PO BID 4 Days #16 tablet 11/21/17 [Rx] cloNIDine HCl [CloNIDine HCl] 0.3 mg PO TID 4 Days #36 tablet 11/21/17 [Rx] Aspirin 81 mg PO Q48H #0 12/03/17 [Rx] Linagliptin [Tradjenta] 5 mg PO DAILY 06/30/18 [History] Melatonin 5 mg PO HS 06/30/18 [History] amLODIPine [Norvasc] 10 mg PO DAILY 06/30/18 [History] Acetaminophen [Tylenol] 650 mg PO Q4H PRN 07/01/18 [History] Atorvastatin [Lipitor] 10 mg PO HS 07/01/18 [History] BuPROPion SR (12 HR) [Wellbutrin SR] 100 mg PO BID 07/01/18 [History] Calcium Acetate [Phos-LO] 2,001 mg PO TIDWM 07/01/18 [History] Doxazosin [Cardura] 8 mg PO HS 07/01/18 [History] GuaiFENesin/Dextromethorphan [Robitussin/Dm] 10 ml PO Q6HR PRN 07/01/18 [History] Lidocaine/Prilocaine CREAM [Emla] 5 gm TP MOWEFR 07/01/18 [History] Magnesium Hydroxide [Milk of Magnesia] 400 mg PO DAILY PRN 07/01/18 [History] Allergies/Adverse Reactions: Allergy/AdvReac Type Severity Reaction Status Date / Time Penicillins [PCN] Allergy Anaphylaxis Verified 04/25/17 18:58 Thiopental [From Pentothal] Allergy Anaphylaxis Verified 04/25/17 18:58 lisinopril AdvReac Cough Verified 04/25/17 18:58 Metolazone AdvReac See Verified 04/25/17 18:58 Comments - Respiratory Orders Oxygen / L per min (as needed for comfort) Smoking Cessation: Smoking cessation has been advised. For more information, call the [employer] Tobacco Quit Line at 4-496-GQPW-NOW. - Advance Directives Code Status: DNR-Comfort Care - Mobility Orders Other (as tolerated) - Rehabiliation Orders Rehab Potential: Poor CERTIFICATION: I certify that the transfer of the above named patient to an Extended Care Facility is necessary for the continuing treatment of the diagnosis listed. The above information is true and accurate reflection of patient's current condition. Confidential - Redisclosure prohibited without a patient's written consent.
--- NOTE | 2018-07-08 13:50 | Palliative Progress Note ---
Date of Encounter: 07/08/18 Time of Encounter: 11:30 - Assessment and plan (1) Goals of care, counseling/discussion Current Visit: Yes Status: Acute Assessment and plan: JOSE G Carbone visited pt yesterday and discontinued HD. Called and spoke to Tona, updated on pt's condition and discussed discharge planning. Pt is to be dischar ged back to [facility] with hospice care. BP remains elevated, but controlled with clonidine patch and prn IV labetalol. Discussed that as long as pt does not demonstrate discomfort, will avoid monitoring BP, as pt's prognosis will be more related to the ESRD and stopping HD. Plan: pt remains DNRCC, to be discharged back to [facility], [facility] hospice referral made and pt to be admitted to hospice once discharged. Dr Dunlap agreeable. [employer]ITATION OFFICERNatalie Connor aware. (2) Acute encephalopathy Current Visit: Yes Status: Acute Assessment and plan: ethiology uncertain, MRI was negative. Neurology and psychiatry appreciated. Continue Haldol 5 mg qhs scheduled Pt refusing PO, so will discontinue all PO medication. (3) ESRD (end stage renal disease) on dialysis Current Visit: Yes Status: Acute Assessment and plan: HD discontinued Comfort measures only. - Time Spent With Patient Total time spent is greater than 50% in coordination of care (as documented) at patient's floor/unit and/or counseling patient: Greater than 35 minutes - Subjective Interval history: Pt was in no acute distress, moving in bed and turning to a prone position. Not opening eyes or following commands. Not interacting with surroundings. - Constitutional Vitals: Abnormal lab results RBC 4.00 M/mcL (4.19-5.50) L 07/07/18 09:11 Hgb 11.9 g/dL (12.9-16.9) L 07/07/18 09:11 Hct 36.7 % (37.5-50.1) L 07/07/18 09:11 BUN 78 mg/dL (8-23) H 07/07/18 09:11 Creatinine 8.41 mg/dL (0.70-1.30) H 07/07/18 09:11 Est GFR ( Amer) 8 (> 60) L 07/07/18 09:11 Est GFR (Non-Af Amer) 6 (> 60) L 07/07/18 09:11 Glucose 151 mg/dL (70-105) H 07/07/18 09:11 POC Glucose 113 mg/dL (70-99) H 07/07/18 17:47 Calculated Osmolality 318 (280-300) H 07/07/18 09:11 Phosphorus 5.6 mg/dL (2.7-4.5) H 07/04/18 05:31 AST 12 Units/L (13-39) L 07/01/18 15:33 Troponin I 0.06 ng/mL (< 0.04) H* 07/02/18 01:58 B-Natriuretic Peptide 1310 pg/mL (Less than 100) H 07/01/18 15:33 Serum Total Protein 5.9 g/dL (6.4-8.9) L 07/01/18 15:33 Ur Specific Rogers 1.007 (1.010-1.025) L 07/01/18 16:56 Urine Protein >=300 mg/dL (Neg-Trace) H 07/01/18 16:56 Urine Ketones Trace mg/dL (Negative) H 07/01/18 16:56 Ur Squamous Epith Cells Many per lpf (None-Few) H 07/01/18 16:56 Salicylates < 2.5 mg/dL (15.0-30.0) L 07/01/18 18:37 Acetaminophen < 10 mcg/mL (10-20) L 07/01/18 18:37 Hep Bs Antibody < 3.10 mIU/mL (10.00-) L 07/02/18 14:53 Exam: General: Patient remains lethargic and nonresponsive to questions, no acute distress. Respiratory: Coarse breath sounds bilaterally Cardiovascular: Regular rate and rhythm. s1 and s2 normal No clicks, rubs, gallops, or murmurs. No pedal edema Abdomen: Abdomen is soft, nontender. Bowel sounds are present Musculoskeletal: spontaneous movements, turning in bed Skin: warm, dry, intact. Neuro: Does not follow commands. Palliative Quality Palliative Quality: Screen for Code Status: Yes, Screen for Goals of Care: Yes, Screen for Pain: Yes, If Pain Regimen Started, Initiate Bowel Regimen: NA, Screen for Nausea/Vomitting: Yes Code Status: 07/02/18 01:49 Resuscitation Status: Active [RES] Routine Comment: Resuscitation Status: DNR-Comfort Care-Arrest Resuscitation Status: Active [RES] Routine Comment: Resuscitation Status: Full Code Resuscitation Status: Active [RES] Routine Comment: Per note from Dr. Garcia. Resuscitation Status: DNR-Comfort Care - Labs CBC & Chem 7: 07/07/18 09:11 07/07/18 09:11 Labs: Laboratory Results - last 24 hr 07/07/18 07/07/18 11:38 17:47 POC Glucose 127 H 113 H - ABG Interpretation ABG results: PT/INR, D-dimer PT 11.3 Seconds (9.4-12.1) 07/01/18 15:33 Palliative Scale - Palliative Performance Scale How ambulatory is this patient?: Totally bed bound What is patient's level of activity and evidence of disease?: Unable to do any activity, Extensive disease How much self-care assistance does patient require?: Total care How much oral intake does the patient have?: Mouth care only What is this patient's level of consciousness?: Drowsy or coma with or without confusion Palliative Performance Score: 10 % Consult Discharge Plan - Plan Referrals: NONE,PCP [Primary Care Provider] - (in 1-2 weeks) Prescriptions: Haloperidol Oral Conc [Haldol] 5 mg PO HS 10 Days mls LORazepam Oral Conc [Ativan Oral Conc] 1 mg PO Q4H PRN 10 Days mls PRN Reason: Anxiety MORPHINE SUL Oral CONC [Roxanol Oral Conc] 5 mg PO Q4H PRN 10 Days oral.syg PRN Reason: Dyspnea
== END 2018-07-08 15:55 | disposition hospice, inpatient (51) | DRG 70 ==
LOC: 2ANU 14:52 → EMEROOARM 14:52 → SUATTDRO 22:15 → 2ANU 23:29 → 2NNU 07-04 09:50 → 2ANU 07-07 19:39
PROVIDERS: ADMIT Family Medicine; ATTEND Internal Medicine